=== PATIENT | female | born 1935 | race Caucasian/White ===

== ENCOUNTER 2016-08-07 12:52 | Emergency (ER) | payer OTHER, MEDICARE ==
[~2016-08-07] VITALS: Ht 152.4 cm; Wt 63.5 kg
[~2016-08-07 12:52] MED LIST: ASPIR 8181 MG PO; CALCIUM 600600 M1 PO; CILOSTAZOL100 MG PO; EXTENDED PHENY100 MG PO; FISH OIL1000 MG PO; FOLIC ACID 1 MG PO; JANUMET 1000 MG1 TAB PO; LEADER MELATONIN5 MG PO; LIPOFLAVONOID1 TAB PO; LOVASTATIN40 MG PO; MAGNESIUM500 M1 PO; MULTIVITAMIN1 TAB PO; NADOLOL40 MG PO; SERTRALINE HYDR50 MG PO; VITAB121000 PO; VITAMIN C500 M3 PO; VITAMIN D31000 I1 PO
--- NOTE | 2016-08-07 12:55 | ED GENERAL ADULT ---
History of Present Illness General Chief Complaint: Low Back Pain/Injury Stated Complaint: BACK PAIN Source: patient, family, old records Exam Limitations: language barrier Vital Signs & Intake/Output Vital Signs & Intake/Output Vital Signs Date Time Temp Pulse Resp B/P Pulse O2 O2 Flow FiO2 Ox Delivery Rate 08/07 1254 97.1 76 18 182/74 98 Room Air Allergies Coded Allergies: NO KNOWN ALLERGIES (11/05/14) Reconcile Medications Ascorbic Acid (Vitamin C) 500 MG TAB 1 TAB PO DAILY SUPPLEMENT (Reported) Aspirin (Ecotrin) 81 MG TABLET.DR 2 TAB PO DAILY HEART HEALTH (Reported) Calcium Carbonate (Calcium 600) 600 MG TAB 1,200 MG PO DAILY SUPPLEMENT ( Reported) CHOLECALCIFEROL (VITAMIN D3) (Vitamin D3) 1,000 UNIT CAPSULE 1 SGL PO DAILY SUPPLEMENT (Reported) Cilostazol 100 MG TAB 50 MG PO BID INTERMITTENT CLAUDICATION (Reported) Cyanocobalamin (Vitamin B-12) (Unknown Strength) TABLET (Unknown Dose) PO DAILY SUPPLEMENT (Reported) Folic Acid 1 MG TABLET 1 TAB PO DAILY FOLIC ACID SUPPLEMENT (Reported) Glimepiride 1 MG TABLET 1 TAB PO DAILY DIABETES (Reported) Lorazepam (Ativan) 0.5 MG TABLET 1 TAB PO BIDP PRN VERTIGO Losartan Potassium 25 MG TABLET 1 TAB PO DAILY HTN (Reported) Lovastatin 40 MG TABLET 1 TAB PO DAILY CHOLESTEROL (Reported) with food Magnesium Oxide 500 MG TABLET 1 TAB PO DAILY SUPPLEMENT (Reported) Meclizine HCl 25 MG TABLET 1 TAB PO TIDPRN PRN VERTIGO Melatonin 5 MG TABLET 1 TAB PO QPM SLEEP (Reported) Metformin Hydrochloride/Salima (Janumet 1000 MG-50 MG) 1 TAB TAB 1 TAB PO BID DIABETES (Reported) Multivitamin (Multiple Vitamins) 1 EACH TABLET 1 TAB PO DAILY SUPPLEMENT ( Reported) Hyygvphaftxt38 (Lipoflavonoid) 1 TAB TAB 1 TAB PO TID SUPPLEMENT (Reported) Nadolol 40 MG TAB 1 TAB PO DAILY HEART/BP (Reported) Naproxen 375 MG TABLET 1 TAB PO BID PRN BACK PAIN with food OMEGA-3/DHA/EPA/FISH OIL ([place]-3 Fish Oil 1,000 MG Sftg) 300 MG-1,000 MG CAPSULE 1 SGL PO DAILY SUPPLEMENT (Reported) PHENYTOIN SODIUM EXTENDED (Phenytoin Sodium Extended) 100 MG CAPSULE 1 CAP PO TID SEIZURES (Reported) Scopolamine Hydrobromide (Transderm-Scop) 1.5MG/3DAY PATCH.TD.3 1 PAT TOP Q3D VERTIGO apply to the hairless area behind 1 ear at least 4 hours before effect is required; reapply every 3 days as needed SERTRALINE HCL (Sertraline Hydrochloride) 50 MG TABLET 1 TAB PO DAILY MENTAL HEALTH (Reported) Triage Nurses Notes Reviewed? yes Onset: Gradual Duration: gone now, intermittent Timing: recent history Severity: moderate Severity Numbers: 5 HPI: Patient is a 80-year-old female with a past medical history of CAD, hypertension , hyperlipidemia, PVD, seizure disorder, diabetes, VERTIGO,depression who presents emergency room brought in by ambulance for concerns of left-sided back pain and flank pain. EMS states that there were called to patient's private residence however she did ambulate in the snow to the ambulance. Patient currently complains of pain and pointing to her left side of her abdomen and back however history is limited due to language barrier. Patient also is complaining of dizziness (MEENAKSHI CLARK) Past History Medical History Any Pertinent Medical History? see below for history Neurological: seizure, vertigo EENT: hearing loss Cardiovascular: CAD, diastolic CHF, hypertension, hyperlipidemia, myocardial infarction, PVD Respiratory: NONE Gastrointestinal: NONE Hepatic: NONE Renal: NONE Musculoskeletal: NONE Psychiatric: NONE Endocrine: NONE Blood Disorders: NONE Cancer(s): NONE SPORTSPERSONS/Reproductive: NONE History of MRSA: No History of VRE: No History of CDIFF: No Tetanus Vaccine: 07/28/15 Surgical History Surgical History: CABG, cholecystectomy, hip replacement Psychosocial History Who do you live with Son Services at Home None What is your primary language Hungarian Family History Hx Contributory? No (MEENAKSHI CLARK) Review of Systems Review of Systems Constitutional: Reports: no symptoms. EENTM: Reports: no symptoms. Respiratory: Reports: no symptoms. Cardiovascular: Reports: no symptoms. GI: Reports: see HPI. Genitourinary: Reports: no symptoms. Musculoskeletal: Reports: see HPI, back pain. Skin: Reports: no symptoms. Neurological/Psychological: Reports: no symptoms. Hematologic/Endocrine: Reports: no symptoms. Immunologic/Allergic: Reports: no symptoms. All Other Systems: Reviewed and Negative (MEENAKSHI CLARK) Physical Exam Physical Exam General Appearance: no apparent distress, alert, comfortable Comments: Well-developed well-nourished person in no acute distress HEENT: Normal EENT exam, extraocular motion intact, no nystagmus. Pupils equally round and reactive to light and accommodation. Nose is atraumatic. External auditory canal and Tympanic membranes clear. Pharynx normal. No swelling or edema. Neck: Supple, no lymphadenopathy, normal range of motion without pain or tenderness Back: Nontender, no CVA tenderness. Active range of motion of lumbar spine movements re-created left localized paralumbar muscular pain Cardiovascular: Regular rate and rhythms no murmurs rubs or gallops, normal JVP Respiratory: Chest nontender. No respiratory distress.breath sounds clear to auscultation bilaterally Abdomen: Soft, nontender nondistended, no appreciable organomegaly. Normal bowel sounds. No ascites Extremity: No edema, no calf tenderness to palpation, normal and equal pulses. Bilateral upper extremity myotomes and dermatomes intact full active range of motion Neuro: Alert oriented x3, motor sensory normal, cranial nerves II through XII grossly intact. Skin: No appreciable rash on exposed skin, skin is warm and dry. Psych: Mood and affect is normal, memory and judgment is normal. Core Measures ACS in differential dx? No CVA/TIA Diagnosis: No Severe Sepsis Present: No Septic Shock Present: No (CHEPE RATLIFF,MEENAKSHI) Progress Differential Diagnoses I considered the following diagnoses in my evaluation of the patient: [Kidney stone, fracture, transverse myelitis, diverticulitis, UTI, electrolyte abnormality, VERTIGO, cardiac arrhythmia, vertigo, lumbar strain, spinal abscess , SBO] Plan of Care: Orders Procedure Date/time Status URINALYSIS 08/07 1303 Complete TROPONIN LEVEL 08/07 1303 Complete COMPREHENSIVE METABOLIC PANEL 08/07 1303 Complete CBC WITHOUT DIFFERENTIAL 08/07 1303 Complete EKG 08/07 1303 Active Laboratory Tests 08/07/16 1350: Urine Color YEL, Urine Clarity CLEAR, Urine pH 7.5, Ur Specific [place] 1.020, Urine Protein 30 H, Urine Ketones NEG, Urine Nitrite NEG, Urine Bilirubin NEG, Urine Urobilinogen 0.2, Ur Leukocyte Esterase NEG, Ur Microscopic SEDIMENT EXAMINED, Urine RBC RARE, Ur Epithelial Cells RARE, Urine Hemoglobin NEG, Urine Glucose NEG 08/07/16 1322: Anion Gap 14, Estimated GFR > 60, BUN/Creatinine Ratio 22.5, Glucose 145 H, Calcium 9.9, Total Bilirubin 0.4, AST 27, ALT 46, Alkaline Phosphatase 104, Troponin I < 0.01, Total Protein 7.8, Albumin 4.5, Globulin 3.3, Albumin/ Globulin Ratio 1.4, CBC w Diff NO MAN DIFF REQ, RBC 4.18 L, MCV 93.5, MCH 31.5 H, RDW 14.3, MPV 8.4, Gran % 61.4, Lymphocytes % 29.1, Monocytes % 8.2, Eosinophils % 0.9, Basophils % 0.4, Absolute Granulocytes 2.7, Absolute Lymphocytes 1.3, Absolute Monocytes 0.4, Absolute Eosinophils 0, Absolute Basophils 0, PUBS MCHC 33.6 Patient on initial examination without family members had unremarkable physical exam findings and patient had nontender back no abdominal pain and no flank tenderness patient also noted to ambulate from the ambulance chair cart to the hospital bed with normal steady gait EMS also states that patient had normal steady gait from ambulation from private residence to the ambulance. Currently I'm awaiting to discuss patient's symptoms with family member The son who lives with the patient states that 3 days ago she was complaining of left-sided back pain in which he gave patient a lidocaine patch and states that the pain that the patient has been complaining of has come and gone and today the pain was significant that patient had an ambulance called to bring her in. The son also confirms that patient has a long history of room spinning sensation however he does not know medications for patients symptoms Patient and the son were discussed with him about the CT scan findings of the significant increase of dilation of the intrarenal collecting system however patient's symptoms are on the left side. When examining patient active range of motion of lumbar spine she had reproduction of pain localized to the left lumbar spine region which I suspect patient has lumbar strain. She denies any mechanism of injury. CT scan was unremarkable for osseous injury of lumbar spine. Patient was ambulated by me showing mild unsteady gait however the son states that this is always how she walks and she has a walker. Patient does have concerns of positional vertigo patient will be given Ativan and reevaluated After Ativan was administered patient then was ambulating on her own using a walker noted to have normal steady gait and patient had no complaints of dizziness room spinning sensation or back pain. Upon discharge patient looks well no apparent distress the son agrees with disposition and plan and had no questions. Patient was strongly advised to follow up with ENT. Discussed disposition plan with Dr. KAMARA who agrees i DISCUSSED DISPOSITION AND PLAN WITH THE DAUGHTER OVER THE PHONE AND WHICH SHE IS A NURSE WHO AGREES and has no questions. It was noted that patient has been following up with ENT Dr. Rosario and I strongly advised family members to follow- up with Dr. Rosario for known long-standing dizziness and vertigo symptoms. No concern at this time of kidney stone. The daughter states that patient is at her baseline per her history and ambulatory status (CHEPE RATLIFF,MEENAKSHI) Diagnostic Imaging: Viewed by Me: CT Scan. Radiology Impression: SEE COMMENTS Initial ED EKG: normal intervals, normal p-waves, SINUS RHYTHM NOTED AT 69 BPM Comments: PATIENT: ED SPARROW PRESENT AGE: 80 PATIENT ACCOUNT NO: [id number] : 34 LOCATION: [facility] ORDERING PHYSICIAN: MEENAKSHI RATLIFF SERVICE DATE: 08/07/16-4404 EXAM TYPE: CAT - CT ABD & PELVIS W/O IV CONTRAS EXAMINATION: CT ABDOMEN AND PELVIS WITHOUT CONTRAST CLINICAL INFORMATION: Left flank pain. Left-sided back pain. Evaluate lumbar spine. Assess for urinary calculus COMPARISON: Portions of a previous CT 11/05/14 TECHNIQUE: Multidetector volumetric imaging was performed from the superior aspect of the liver through the pubic symphysis. Sagittal and coronal reformatted images were obtained on the technologist's workstation. DLP: 285 mGy-cm FINDINGS: LUNG BASES: There are chronic appearing reticular opacities in the visualized lung bases. There is coronary calcification. There are lower sternal wires. LIVER, GALLBLADDER, AND BILIARY TREE: No suspicious focal liver lesion. No intrahepatic biliary dilation the gallbladder is not demonstrated and is likely surgically absent. PANCREAS: No suspicious pancreatic mass. SPLEEN: Within normal limits ADRENAL GLANDS: There is unchanged diffuse enlargement of the adrenals perhaps related to hyperplasia. No suspicious mass KIDNEYS AND URETERS: There is moderate to marked dilation of the renal pelvis and major infundibula as well as at least mild dilation of the calyces on the right. There is an abrupt change in caliber at the ureteropelvic junction. The right ureter is not dilated. There is no convincing mass at the ureteropelvic junction. There is no obstructing calculus. There is mild fullness of the renal pelvis and infundibula on the left with no ureteral dilation. The left kidney is somewhat smaller than the right. There is no definite perinephric collection. The distal ureters are unevaluable due to metallic artifact BLADDER: Obscured by metallic artifact and not well evaluated GASTROINTESTINAL TRACT: No localized area of colonic wall thickening. No small bowel dilation. There is likely a diverticulum involving the second portion of the duodenum. There may be a tiny sliding-type hiatal hernia. ABDOMINAL WALL: No significant hernia is appreciated. LYMPH NODES: There are no measurably enlarged abdominal or pelvic lymph nodes. No significant free intraperitoneal fluid VASCULAR: Extensive atherosclerotic calcification. There is no abdominal aortic aneurysm. PELVIC VISCERA: Metallic artifact limits assessment. The uterus may be surgically absent. OSSEOUS STRUCTURES: Bilateral hip replacement causes significant artifact. There is degenerative change in the spine. There is no definite lumbar fracture. IMPRESSION: There is again demonstrated significant dilation of the intrarenal collecting system greater on the right. There is an abrupt change in caliber at the ureteropelvic junction. This could be developmental. No mass or calculus in this region demonstrated. Beam hardening artifact limits assessment of the pelvis No lumbar fracture demonstrated DICTATED BY: MIAN HERNANDEZ MD DATE/TIME DICTATED:08/07/161352 WEBLOGIC ADMINISTRATOR:ALEX DATE/TIME TRANSCRIBED:08/07/161352 (MEENAKSHI CLARK) Departure Departure Disposition: HOME OR SELF CARE Condition: Stable Clinical Impression Primary Impression: Low back strain Secondary Impressions: Positional vertigo Referrals: DAVID GUNTER MD (PCP/Family) Additional Instructions: As discussed begin the prescription of Naprosyn as directed for back pain. If no better in one week follow up with primary care doctor for further evaluation treatment. Begin icing or heating the area 20 minutes every 2 hours for pain and inflammation. Continue to always use the walker for fall prevention. Begin the prescription of meclizine and scopolamine for room spinning sensation and begin the prescription of Ativan for breakthrough room spinning and vertigo symptoms. Tomorrow please follow up and establish your nose and throat doctor GEORGE for further evaluation. If symptoms worsen return to emergency room. Departure Forms: Customer Survey General Discharge Information Prescriptions: Current Visit Scripts Scopolamine Hydrobromide (Transderm-Scop) 1 PAT TOP Q3D #4 PAT apply to the hairless area behind 1 ear at least 4 hours before effect is required; reapply every 3 days as needed Meclizine HCl 1 TAB PO TIDPRN PRN VERTIGO #30 TAB Lorazepam (Ativan) 1 TAB PO BIDP PRN VERTIGO #8 TAB Naproxen 1 TAB PO BID PRN BACK PAIN #14 TAB with food (MEENAKSHI CLARK) PA/CYBER SOFTWARE ENGINEER Co-Sign Statement Statement: ED Attending supervision documentation- x I saw and evaluated the patient. I have also reviewed all the pertinent lab results and diagnostic results. I agree with the findings and the plan of care as documented in the PA's/CYBER SOFTWARE ENGINEER's documentation. [] I have reviewed the ED Record and agree with the PA's/CYBER SOFTWARE ENGINEER's documentation. [] Additions or exceptions (if any) to the PAs/CYBER SOFTWARE ENGINEER's note and plan are summarized below: [] (ANH VIDAL,GISELA) Critical Care Note Critical Care Note Critical Care Time: non-applicable (MEENAKSHI CLARK)
[2016-08-07 13:33] LABS: ABSOLUTE BASOPHIL COUNT 0 /CUMM (0.0-0.2); ABSOLUTE EOSINOPHIL COUNT 0 /CUMM (0.0-0.7); ABSOLUTE GRANULOCYTE CT 2.7 /CUMM (1.4-6.5); ABSOLUTE LYMPH COUNT 1.3 /CUMM (1.2-3.4); ABSOLUTE MONOCYTE COUNT 0.4 /CUMM (0.10-0.60); BASOPHIL % 0.4 % (0.0-2.0); EOSINOPHIL % 0.9 % (0-5); GRANULOCYTE % 61.4 % (42.2-75.2); HEMATOCRIT 39.1 % (37-47); MEAN CORPUSCULAR HGB 31.5 PG (27.0-31.0); MEAN CORPUSCULAR HGB CONC 33.6 G/DL (33.0-37.0); MEAN CORPUSCULAR VOLUME 93.5 FL (81.0-99.0); MEAN PLATELET VOLUME 8.4 FL (7.4-10.4); PLATELET COUNT 153 /CUMM (130-400); RBC DISTRIBUTION WIDTH 14.3 % (11.5-14.5); RED BLOOD CELL CT 4.18 /CUMM (4.20-5.40); WHITE BLOOD CELL COUNT 4.3 /CUMM (4.8-10.8)
[2016-08-07] MEDS ORDERED: GLIMEPIRIDE1 M1 PO (13:38)
[2016-08-07] MEDS ORDERED: LOSARTAN POTASS25 M1 PO (13:39)
--- NOTE | 2016-08-07 14:12 | CT SCAN REPORT ---
EXAMINATION: CT ABDOMEN AND PELVIS WITHOUT CONTRAST CLINICAL INFORMATION: Left flank pain. Left-sided back pain. Evaluate lumbar spine. Assess for urinary calculus COMPARISON: Portions of a previous CT 11/05/14 TECHNIQUE: Multidetector volumetric imaging was performed from the superior aspect of the liver through the pubic symphysis. Sagittal and coronal reformatted images were obtained on the technologist's workstation. DLP: 285 mGy-cm FINDINGS: LUNG BASES: There are chronic appearing reticular opacities in the visualized lung bases. There is coronary calcification. There are lower sternal wires. LIVER, GALLBLADDER, AND BILIARY TREE: No suspicious focal liver lesion. No intrahepatic biliary dilation the gallbladder is not demonstrated and is likely surgically absent. PANCREAS: No suspicious pancreatic mass. SPLEEN: Within normal limits ADRENAL GLANDS: There is unchanged diffuse enlargement of the adrenals perhaps related to hyperplasia. No suspicious mass KIDNEYS AND URETERS: There is moderate to marked dilation of the renal pelvis and major infundibula as well as at least mild dilation of the calyces on the right. There is an abrupt change in caliber at the ureteropelvic junction. The right ureter is not dilated. There is no convincing mass at the ureteropelvic junction. There is no obstructing calculus. There is mild fullness of the renal pelvis and infundibula on the left with no ureteral dilation. The left kidney is somewhat smaller than the right. There is no definite perinephric collection. The distal ureters are unevaluable due to metallic artifact BLADDER: Obscured by metallic artifact and not well evaluated GASTROINTESTINAL TRACT: No localized area of colonic wall thickening. No small bowel dilation. There is likely a diverticulum involving the second portion of the duodenum. There may be a tiny sliding-type hiatal hernia. ABDOMINAL WALL: No significant hernia is appreciated. LYMPH NODES: There are no measurably enlarged abdominal or pelvic lymph nodes. No significant free intraperitoneal fluid VASCULAR: Extensive atherosclerotic calcification. There is no abdominal aortic aneurysm. PELVIC VISCERA: Metallic artifact limits assessment. The uterus may be surgically absent. OSSEOUS STRUCTURES: Bilateral hip replacement causes significant artifact. There is degenerative change in the spine. There is no definite lumbar fracture. IMPRESSION: There is again demonstrated significant dilation of the intrarenal collecting system greater on the right. There is an abrupt change in caliber at the ureteropelvic junction. This could be developmental. No mass or calculus in this region demonstrated. Beam hardening artifact limits assessment of the pelvis No lumbar fracture demonstrated
[2016-08-07] MEDS ORDERED: ATIVAN0.5 M1 PO (15:15)
[2016-08-07] MEDS ORDERED: TRANSDERM-SCOP1 EACH TOP (15:15)
[2016-08-07] MEDS ORDERED: MECLIZINE HCL25 MG PO (15:15)
[2016-08-07] MEDS ORDERED: NAPROXEN375 M2 PO (15:17)
[2016-08-07 15:48] VITALS: BP 167/74
== END 2016-08-07 15:49 ==
LOC: ERH 12:52
PROVIDERS: Physician Assistant
DX: S39.012A Strain of muscle, fascia and tendon of lower back, initial encounter (principal); H81.10 Benign paroxysmal vertigo, unspecified ear; X58.XXXA Exposure to other specified factors, initial encounter
CPT/HCPCS: 74176; 81001; 93005; 93010

== ENCOUNTER 2017-08-18 17:48 | Inpatient (IN) | payer OTHER ==
[~2017-08-18] VITALS: Ht 152.4 cm; Wt 48.1 kg
[~2017-08-18 17:48] MED LIST changes: -ASPIR 8181 MG PO; +ASPIRIN EC81 M1 PO; +ATIVAN0.5 M1 PO; -CALCIUM 600600 M1 PO; +CALCIUM600 M3 PO; +CILOSTAZOL100 M1 PO; -CILOSTAZOL100 MG PO; -EXTENDED PHENY100 MG PO; -FISH OIL1000 MG PO; -FOLIC ACID 1 MG PO; +FOLIC ACID1 M1 PO; +GLIMEPIRIDE1 M1 PO; -JANUMET 1000 MG1 TAB PO; +JANUMET 50-1,01 EACH PO; -LEADER MELATONIN5 MG PO; +LIPO-FLAVONOID1 EACH PO; -LIPOFLAVONOID1 TAB PO; +LOSARTAN POTASS25 M1 PO; +LOVASTATIN40 M1 PO; -LOVASTATIN40 MG PO; -MAGNESIUM500 M1 PO; +MAGNESIUM500 M2 PO; +MECLIZINE HCL25 MG PO; +MELATONIN5 M7 PO; +MULTIPLE VITAM1 EAC2 PO; -MULTIVITAMIN1 TAB PO; +NADOLOL40 M1 PO; -NADOLOL40 MG PO; +NAPROXEN375 M2 PO; +OMEGA-3 FISH O1 EAC4 PO; +PHENYTOIN SODI100 MG PO; +RISPERDAL1 M1 PO; +SERTRALINE HCL50 MG PO; -SERTRALINE HYDR50 MG PO; +TRANSDERM-SCOP1 EACH TOP; -VITAB121000 PO; +VITAMIN B-121000 MC3 PO; -VITAMIN C500 M3 PO; +VITAMIN C500 M6 PO; -VITAMIN D31000 I1 PO; +VITAMIN D31000 UNI1 PO
--- NOTE | 2017-08-18 18:27 | ED GENERAL ADULT ---
History of Present Illness General Chief Complaint: General Adult Stated Complaint: BIBA WEAKNESS Source: patient, family Exam Limitations: no limitations Vital Signs & Intake/Output Vital Signs & Intake/Output Vital Signs Date Time Temp Pulse Resp B/P B/P Pulse O2 O2 Flow FiO2 Mean Ox Delivery Rate 08/18 1944 97.2 80 20 116/68 97 Room Air 08/18 1848 95 Room Air 08/18 1801 98.6 82 18 108/53 96 Room Air Allergies Coded Allergies: NO KNOWN ALLERGIES (11/05/14) Reconcile Medications Ascorbate Calcium (Vitamin C) 500 MG TABLET 1 TAB PO DAILY SUPPLEMENT ( Reported) Aspirin (Ecotrin*) 81 MG TABLET.DR 2 TAB PO DAILY HEART/BLOOD (Reported) Bioflav,Lemon/Vit Bcomp,C (Lipo-Flavonoid Plus Caplet) 200 MG-100 MG TABLET 1 TAB PO TID SUPPLEMENT (Reported) Calcium (Elemental-Fr Calcarb) (Calcium) 600 MG CALCIUM (1,500 MG) TABLET 1, 200 MG PO DAILY SUPPLEMENT (Reported) Cholecalciferol (Vitamin D3) (Vitamin D3) 1,000 UNIT CAPSULE 1 CAP PO DAILY SUPPLEMENT (Reported) Cilostazol 100 MG TABLET 0.5 TAB PO BID INTERMITTENT CLAUDICATION (Reported) Cyanocobalamin (Vitamin B-12) (Unknown Strength) TABLET (Unknown Dose) PO DAILY SUPPLEMENT (Reported) Folic Acid 1 MG TABLET 1 TAB PO DAILY SUPPLEMENT (Reported) Glimepiride 1 MG TABLET 1 TAB PO DAILY DIABETES (Reported) Losartan Potassium 25 MG TABLET 1 TAB PO DAILY HTN (Reported) Lovastatin 40 MG TABLET 1 TAB PO DAILY CHOLESTEROL (Reported) with food Magnesium Oxide (Magnesium) 500 MG CAPSULE 1 CAP PO DAILY SUPPLEMENT ( Reported) Melatonin 5 MG TABLET 1 TAB PO QPM SLEEP (Reported) Multivitamin (Multiple Vitamins) 1 EACH TABLET 1 TAB PO DAILY SUPPLEMENT ( Reported) Nadolol 40 MG TABLET 1 TAB PO DAILY HEART/BP (Reported) Dewitt-3S/Dha/Epa/Fish Oil (Dewitt-3 Fish Oil 1,000 MG Sfgl) 300-1,000MG CAPSULE 1 CAP PO DAILY SUPPLEMENT (Reported) Phenytoin Sodium Extended 100 MG CAPSULE 1 CAP PO TID SEIZURES (Reported) Risperidone (Risperdal) 1 MG TABLET 0.5 MG PO BID AGITATION Sertraline HCl 50 MG TABLET 1 TAB PO DAILY MENTAL HEALTH (Reported) Sitagliptin Phos/Metformin HCl (Janumet 50-1,000 MG Tablet) 50 MG-1,000 MG TABLET 1 TAB PO BID DM (Reported) Triage Note: RECEIVED 82 YO FEMALE BIBJohn FROM HOME, ROMANSH SPEAKING, WITH GRAND-DAUGHTER WHO SPEAKS ROMANSH AND IS ABLE TO TRANSLATE FOR PT, REPORTS WEAKNESS AD LETHARGY X 3 DAYS. ACORDING TO REPORT, FAMILY SAID SHE WAS CRITICALLY HYPOGLYCEIC EARLIER, BUT CURRENTLY, HER BLOOD SUGAR WAS 231 UPON ARRIVAL OF PARAMEDICS. PT APPEARS AWAKE, ALERT AND ORIENTED Triage Nurses Notes Reviewed? yes HPI: 82 yo F presenting with cough, weakness. Cough for the last 2-3 days, noticed by family, progressive. Marked weakness starting today, patient appeared fatigued and lethargic for much of the day, sleeping most of the afternoon, patient not able to ambulate at baseline at home, needed to be supported by multiple family members. Family also notes the patient had episode of "low" blood sugar reading this afternoon, takes Januvia, able to eat with improvement. Patient denies fevers, rash, chest pain, shortness of breath, palpitations, abdominal pain, nausea, vomiting, diarrhea, patient, bloody stools, urinary symptoms, headache, neck pain, or focal neurologic symptoms. No recent falls or head trauma. (+) sick contacts, nephew had URI Sx 1-2 weeks ago. (Caity VIADL,Wyatt) Past History Travel History Traveled to [place] past 21 day No Medical History Any Pertinent Medical History? 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 Yes (Wyatt Carolina MD) Review of Systems Review of Systems Constitutional: Reports: see HPI. EENTM: Reports: see HPI. Respiratory: Reports: see HPI. Cardiovascular: Reports: see HPI. GI: Reports: see HPI. Genitourinary: Reports: no symptoms. Musculoskeletal: Reports: no symptoms. Skin: Reports: no symptoms. Neurological/Psychological: Reports: no symptoms. Hematologic/Endocrine: Reports: no symptoms. Immunologic/Allergic: Reports: no symptoms. All Other Systems: Reviewed and Negative (Caity VIDAL,Wyatt) Physical Exam Physical Exam General Appearance: well developed/nourished, no apparent distress, awake Head: atraumatic, normal appearance Eyes: Bilateral: PERRL, EOMI. Ears, Nose, Throat: Dry mucus membranes Neck: normal inspection, full range of motion, no midline tenderness Respiratory: normal breath sounds, no respiratory distress, lungs clear Cardiovascular: regular rate/rhythm, normal peripheral pulses Gastrointestinal: soft, non-tender Core Measures ACS in differential dx? No CVA/TIA Diagnosis: No Sepsis Present: No Sepsis Focused Exam Completed? Yes (Caity VIDAL,Wyatt) Progress Differential Diagnoses I considered the following diagnoses in my evaluation of the patient: [Probably URI, influenza, pneumonia, UTI, sepsis from other infectious source, metabolic arrangement, less likely intercranial hemorrhage,] Plan of Care: Orders Procedure Date/time Status Regular Diet 08/19 B Active CBC WITHOUT DIFFERENTIAL 08/19 06 Active BASIC ELECTROLYTES PLUS BUN&CR 08/19 0600 Active LACTIC ACID 08/19 0033 Active TRC EVALUATION (GEN) 08/18 2258 Active PT Evaluate & Treat 08/18 2258 Active Pathway - chart 08/18 225 Active House Staff 08/18 225 Active Patient Data 08/18 225 Active Code Status 08/18 225 Active ED Holding Orders 08/18 2224 Active Patient Data 08/19 2155 Active Admit to inpatient 08/18 2152 Active LACTIC ACID 08/18 2133 Complete RAPID VIRAL INFLUENZA A 08/18 1945 Complete Intake & Output 08/18 1944 Active URINALYSIS 08/18 182 Complete TROPONIN LEVEL 08/18 182 Complete LACTIC ACID 08/18 182 Complete HEPATIC FUNCTION PANEL 08/18 182 Complete CBC WITHOUT DIFFERENTIAL 08/18 182 Complete BASIC METABOLIC PANEL 08/18 182 Complete EKG 08/18 1822 Active VTE Mechanical Prophylaxis 08/18 UNK Active Vital Signs 08/18 UNK Active 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/Gravel Machine Operator 08/18 UNK Active Intake & Output 08/18 UNK Active Current Medications Sig/Ellen Start time Last Medication Dose Stop Time Status Admin Enoxaparin Sodium 40 MG DAILY 08/19 1000 AC (Lovenox) Acetaminophen 650 MG Q6P PRN 08/18 230 AC (Tylenol) Oseltamivir Phosphate 75 MG BID 08/18 2199 CAN (Tamiflu 75MG) 08/22 2158 Oseltamivir Phosphate 30 MG BID 08/18 2199 AC 08/18 (Tamiflu) 08/22 Laboratory Tests 08/18/17 2140: Lactic Acid 2.9 H 08/18/17 1930: Urine Color YEL, Urine Clarity HAZY H, Urine pH 6.0, Ur Specific [place] 1.025, Urine Protein TRACE H, Urine Ketones 15 H, Urine Nitrite NEG, Urine Bilirubin NEG, Urine Urobilinogen 0.2, Ur Leukocyte Esterase SMALL H, Ur Microscopic SEDIMENT EXAMINED, Urine RBC RARE, Urine WBC 15-25 H, Ur Epithelial Cells FEW, Urine Bacteria PACKD H, Urine Hemoglobin NEG, Urine Glucose NEG 08/18/17 1831: Anion Gap 15, Estimated GFR 53 L, BUN/Creatinine Ratio 31.0 H, Glucose 169 H, Lactic Acid 4.2 H, Calcium 9.3, Total Bilirubin 0.4, Direct Bilirubin 0.4, AST 37 H, ALT 44, Alkaline Phosphatase 64, Troponin I < 0.01, Total Protein 6.8, Albumin 3.8, CBC w Diff NO MAN DIFF REQ, RBC 3.61 L, MCV 94.3, MCH 31.1 H, MCHC 33.0, RDW 14.8 H, MPV 9.1, Gran % 57.6, Lymphocytes % 29.9, Monocytes % 10.2 H, Eosinophils % 1.7, Basophils % 0.6, Absolute Granulocytes 1.8, Absolute Lymphocytes 0.9 L, Absolute Monocytes 0.3, Absolute Eosinophils 0.1, Absolute Basophils 0 Microbiology 08/18 1944 NASOPHARYN: Influenza Virus A & B Rapid Smear - COMP INFLUENZA TYPE A Physician MDM: 82 yo F presenting with cough, weakness. VSS, remainder of exam as above. DDx: Viral URI, influenza, pneumonia, UTI, sepsis from another source, metabolic derrangement, dehydration, low concern for trauamtic injury or intracranial hemorrhage, low concern for surgical abdominal pathology, low concern for ACS or PE. EKG sinus rhythm, nonischemic. Troponin negative. Lactate 4.2, 1 L normal saline given. UA with 15-20 white blood cells, mildly contaminated with few epithelial cells, packed bacteria, the site esterase positive, nitrite negative, will treat with ceftriaxone for UTI. CBC with stable anemia around baseline, leukopenia to 3.1. Repeat lactic acid 2.9, improving with IV fluids. Chest x-ray without focal without issue airspace disease. Influenza A positive. Tamiflu ordered. On reexamination patient appears fatigued, unable to relate at baseline. Admit for ongoing IV fluid resuscitation, treatment of influenza, further evaluation, PT consult, possible facility placement. Initial ED EKG: normal sinus rhythm (Wyatt Carolina MD) Departure Departure Disposition: STILL A PATIENT Condition: Stable Clinical Impression Primary Impression: Influenza A Referrals: Norma Plascencia MD (PCP/Family) Departure Forms: Customer Survey General Discharge Information Admission Note Spoke With: Markus Martin MD Documentation of Exam: Documentation of any treatments & extenuating circumstances including Concerns Regarding Discharge (functional status, medication knowledge or non-compliance, living conditions, etc.) that warrant an admission rather than observation: [ Patient presents with lethargy, dehydration, and cough in the setting of new diagnosis of influenza, in the emergency department found to be safely dehydrated with elevated lactate, the patient requires admission for ongoing IV fluid resuscitation, further treatment of influenza, monitoring, PT consult, possible facility placement, if discharged patient has a high likelihood of recurrent hyperglycemic episodes, falls, leading to severe injury and possibly ] (Wyatt Carolina MD) Resident Co-Sign Statement Statement: ED Attending supervision documentation- [X] I saw and evaluated the patient. I have also reviewed all the pertinent lab results and diagnostic results. I agree with the findings and the plan of care as documented in the Resident's documentation. [X] I have reviewed the ED Record and agree with the Resident's documentation. [] Additions or exceptions (if any) to the Resident's note and plan are summarized below: [] (Efren VIDAL,Demetrius Padron) Critical Care Note Critical Care Note Critical Care Time: non-applicable (Wyatt Carolina MD)
[2017-08-18 19:00] LABS: ABSOLUTE BASOPHIL COUNT 0 /CUMM (0.0-0.2); ABSOLUTE EOSINOPHIL COUNT 0.1 /CUMM (0.0-0.7); ABSOLUTE GRANULOCYTE CT 1.8 /CUMM (1.4-6.5); ABSOLUTE LYMPH COUNT 0.9 /CUMM (1.2-3.4); ABSOLUTE MONOCYTE COUNT 0.3 /CUMM (0.10-0.60); BASOPHIL % 0.6 % (0.0-2.0); EOSINOPHIL % 1.7 % (0-5); GRANULOCYTE % 57.6 % (42.2-75.2); HEMATOCRIT 34.1 % (37-47); MEAN CORPUSCULAR HGB 31.1 PG (27.0-31.0); MEAN CORPUSCULAR VOLUME 94.3 FL (81.0-99.0); MEAN PLATELET VOLUME 9.1 FL (7.4-10.4); PLATELET COUNT 110 /CUMM (130-400); RBC DISTRIBUTION WIDTH 14.8 % (11.5-14.5); RED BLOOD CELL CT 3.61 /CUMM (4.20-5.40); WHITE BLOOD CELL COUNT 3.1 /CUMM (4.8-10.8)
--- NOTE | 2017-08-18 20:58 | RADIOLOGY REPORT ---
EXAMINATION: XR CHEST CLINICAL INFORMATION: Cough. COMPARISON: History of 12/22/2016. TECHNIQUE: 2 views of the chest were obtained. FINDINGS: The heart is enlarged and there is mild prominence of pulmonary vasculature. No pleural effusion. No focal airspace consolidation. Postoperative changes of prior median sternotomy. Degenerative changes of both shoulders and the partially visualized spine. No acute osseous finding. IMPRESSION: Mild cardiomegaly and mild prominence of the pulmonary vasculature suggesting mild volume overload.
[2017-08-18] MEDS ORDERED: GABAPENTIN100 M2 PO (23:10)
--- NOTE | 2017-08-19 00:36 | History & Physical ---
Prakash VIDAL,[facility] 08/19/17 0035: General Information and HPI MD Statement: I have seen and personally examined ED SPARROW and documented this H&P. The patient is a 82 year old F who presented with a patient stated chief complaint of [lethargy]. Source of Information: family Exam Limitations: language barrier History of Present Illness: Ms Anamika is an 82 year-old lady with past medical history significant for seizure disorder on Dilantin, CABG after positive stress test and angina in 1997 and NH in 2003 status post stent placement , hypertension, hyperlipidemia, reflux disease, chronic subdural hematoma, diabetes, and urinary incontinence who is brought in to the ER by her daughter for increasing lethargy for the past 2-3 days. Per the daughter, her mother has been increasingly lethargic for the past couple of days. She had a cough starting 3 days ago which is gradually getting worse and has some chest discomfort due to coughing. Reports patient's son being recently sick with cold. Denies any chest pain, palpitations, shortness of breath, recent travel, fever/chills, orthopnea, PND, lower extremity edema or recent weight gain. Patient did not receive her flu shot this year. She had her birthday green party yesterday but according to the daughter she did not look good. She checked her blood sugar levels around afternoon with a glucometer reading it as "low", she gave her some sugar to be in the repeat reading was 180s. States she took her glimiperide but did not eat anything. Allergies/Medications Allergies: Coded Allergies: NO KNOWN ALLERGIES (11/05/14) Home Med list Ascorbate Calcium (Vitamin C) 500 MG TABLET 1 TAB PO DAILY SUPPLEMENT ( Reported) Aspirin (Ecotrin*) 81 MG TABLET.DR 2 TAB PO DAILY HEART/BLOOD (Reported) Bioflav,Lemon/Vit Bcomp,C (Lipo-Flavonoid Plus Caplet) 200 MG-100 MG TABLET 1 TAB PO TID SUPPLEMENT (Reported) Calcium (Elemental-Fr Calcarb) (Calcium) 600 MG CALCIUM (1,500 MG) TABLET 1, 200 MG PO DAILY SUPPLEMENT (Reported) Cholecalciferol (Vitamin D3) (Vitamin D3) 1,000 UNIT CAPSULE 1 CAP PO DAILY SUPPLEMENT (Reported) Cilostazol 100 MG TABLET 0.5 TAB PO BID INTERMITTENT CLAUDICATION (Reported) Cyanocobalamin (Vitamin B-12) (Unknown Strength) TABLET (Unknown Dose) PO DAILY SUPPLEMENT (Reported) Folic Acid 1 MG TABLET 1 TAB PO DAILY SUPPLEMENT (Reported) Gabapentin 100 MG CAPSULE 1 CAP PO AT BEDTIME SLEEP (Reported) Glimepiride 1 MG TABLET 1 TAB PO DAILY DIABETES (Reported) Losartan Potassium 25 MG TABLET 1 TAB PO DAILY HTN (Reported) Lovastatin 40 MG TABLET 1 TAB PO DAILY CHOLESTEROL (Reported) with food Magnesium Oxide (Magnesium) 500 MG CAPSULE 1 CAP PO DAILY SUPPLEMENT ( Reported) Melatonin 5 MG TABLET 1 TAB PO QPM SLEEP (Reported) Multivitamin (Multiple Vitamins) 1 EACH TABLET 1 TAB PO DAILY SUPPLEMENT ( Reported) Nadolol 40 MG TABLET 1 TAB PO DAILY HEART/BP (Reported) Baskin-3S/Dha/Epa/Fish Oil (Baskin-3 Fish Oil 1,000 MG Sfgl) 300-1,000MG CAPSULE 1 CAP PO DAILY SUPPLEMENT (Reported) Phenytoin Sodium Extended 100 MG CAPSULE 1 CAP PO TID SEIZURES (Reported) Risperidone (Risperdal) 1 MG TABLET 0.5 MG PO BID AGITATION Sertraline HCl 50 MG TABLET 1 TAB PO DAILY MENTAL HEALTH (Reported) Sitagliptin Phos/Metformin HCl (Janumet 50-1,000 MG Tablet) 50 MG-1,000 MG TABLET 1 TAB PO BID DM (Reported) Past History Travel History Traveled to [place] past 21 day No Medical History Neurological: seizure, vertigo, Chronic Subdural Hematoma EENT: hearing loss Cardiovascular: CAD, diastolic CHF, hypertension, hyperlipidemia, myocardial infarction, PVD Respiratory: NONE Gastrointestinal: NONE Hepatic: NONE Renal: urinary incontinence Musculoskeletal: NONE Psychiatric: NONE Endocrine: diabetes Blood Disorders: NONE Cancer(s): NONE 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 Home Who Do You Live With? child Services at Home: None Primary Language: Burundian Smoking Status: Never Smoked ETOH Use: denies use Illicit Drug Use: denies illicit drug use Functional Ability ADLs Independent: dressing, eating, toileting, bathing. Ambulation: walker IADLs Independent: food prep, telephone. Needs Assist: shopping, housework, finances, transportation, medication admin. Review of Systems Review of Systems Constitutional: Reports: malaise. EENTM: Reports: no symptoms. Cardiovascular: Reports: no symptoms. Respiratory: Reports: cough. GI: Reports: no symptoms. Genitourinary: Reports: no symptoms. Musculoskeletal: Reports: no symptoms. Skin: Reports: no symptoms. Neurological/Psychological: Reports: no symptoms. Hematologic/Endocrine: Reports: no symptoms. Immunologic/Allergic: Reports: no symptoms. All Other Systems: Reviewed and Negative Exam & Diagnostic Data Last 24 Hrs of Vital Signs/I&O Vital Signs Date Time Temp Pulse Resp B/P B/P Pulse O2 O2 Flow FiO2 Mean Ox Delivery Rate 08/19 0120 99.3 08/18 2354 99.3 95 21 162/75 93 Nasal 3.0L Cannula 08/18 1945 97.2 80 20 116/68 97 Room Air 08/18 1848 95 Room Air 08/18 1801 98.6 82 18 108/53 96 Room Air Intake & Output 08/19 0800 08/19 0000 08/18 1600 Intake Total 1000 Output Total Balance 1000 Intake, IV 1000 Patient 120 lb Weight Weight Estimated Measurement Method Physical Exam General Appearance Alert, Cooperative, No Acute Distress Skin No Rashes, No Breakdown Cardiovascular Regular Rate, Normal S1, Normal S2, Crackles on bilateral lung bases Lungs Normal Air Movement Abdomen Normal Bowel Sounds, Soft, No Tenderness Extremities No Clubbing, No Cyanosis, No Edema, Normal Pulses Last 24 Hrs of Labs/Tobias: Laboratory Tests 08/19/17 0013: Troponin I 0.01 08/19/17 0013: Lactic Acid 1.9, Phenytoin 10.3 08/18/170: Lactic Acid 2.9 H 08/18/17 1930: Urine Color YEL, Urine Clarity HAZY H, Urine pH 6.0, Ur Specific [place] 1.025, Urine Protein TRACE H, Urine Ketones 15 H, Urine Nitrite NEG, Urine Bilirubin NEG, Urine Urobilinogen 0.2, Ur Leukocyte Esterase SMALL H, Ur Microscopic SEDIMENT EXAMINED, Urine RBC RARE, Urine WBC 15-25 H, Ur Epithelial Cells FEW, Urine Bacteria PACKD H, Urine Hemoglobin NEG, Urine Glucose NEG 08/18/17 183: Anion Gap 15, Estimated GFR 53 L, BUN/Creatinine Ratio 31.0 H, Glucose 169 H, Lactic Acid 4.2 H, Calcium 9.3, Total Bilirubin 0.4, Direct Bilirubin 0.4, AST 37 H, ALT 44, Alkaline Phosphatase 64, Troponin I < 0.01, Urr-K-Hheuasibnya Pept 3590 H, Total Protein 6.8, Albumin 3.8, CBC w Diff NO MAN DIFF REQ, RBC 3.61 L, MCV 94.3, MCH 31.1 H, MCHC 33.0, RDW 14.8 H, MPV 9.1, Gran % 57.6, Lymphocytes % 29.9, Monocytes % 10.2 H, Eosinophils % 1.7, Basophils % 0.6, Absolute Granulocytes 1.8, Absolute Lymphocytes 0.9 L, Absolute Monocytes 0.3, Absolute Eosinophils 0.1, Absolute Basophils 0 Microbiology 08/18 1944 NASOPHARYN: Influenza Virus A & B Rapid Smear - COMP INFLUENZA TYPE A 08/18 1929 URINE ROUT: Urine Culture - RECD Diagnostic Data EKG Results Normal sinus rhythm Heart rate 79 QTC 436 CXR Results Mild cardiomegaly and mild prominence of pulmonary vasculature suggesting mild volume overload. Assessment/Plan Assessment: Ms Sparrow is an 82 year-old lady with past medical history significant for seizure disorder on Dilantin, CABG after positive stress test and angina in 1997 and NH in 2003 status post stent placement , hypertension, hyperlipidemia, reflux disease, chronic subdural hematoma, diabetes, and urinary incontinence who is brought in to the ER by her daughter for increasing lethargy for the past 2-3 days. Problem list 1. Influenza 2. Lactic acidosis; likely dehydration as the patient had very little by mouth intake per the daughter. 3. Exacerbation of diastolic congestive heart feature; patient is not on any home Lasix. - We will admit the patient to telemetry floor. - Start the patient on Tamiflu 30 mg twice a day. - Patient was later hypoxic in the ER requiring 3 L of oxygen. Continue supplemental oxygen as needed. - Robitussuin for cough - Patient received 1.5 L of fluids in the ER for elevated lactic acid, will hold off on the fluids for now given mild fluid overload on chest x-ray, elevated JVD and proBNP of 3590. - Lactic acidosis resolved after hydration. - Troponin EKG 3 to rule out ACS - Cardiology consult in a.m. - Echocardiogram in January 10 showed normal ejection fraction which stage II diastolic dysfunction. Will hold off repeating the echocardiogram for now unless suggested by cardiology. - Patient is on Cilostazol, contraindicated in patients with heart failure, should be discontinued. - Monitor Ins and outs and daily weights - PT OT evaluation - Hold oral hypoglycemic agents and start on insulin sliding scale and Accu- Cheks. - Continue rest of the home medications. DVT prophylaxis; As Ranked By This Provider Problem List: 1. Seizure disorder 2. Influenza A Core Measures/Misc (02/10) Acute Coronary Syndrome ACS Diagnosis: No Congestive Heart Failure Congestive Heart Failure Diagnosis Yes Cerebrovascular Accident CVA/TIA Diagnosis: No VTE (View Protocol) VTE Risk Factors Age>40 No Mechanical VTE Prophylaxis d/t N/A MechProphylax Ordered No VTE Pharm Prophylaxis d/t NA PharmProphylax ordered Sepsis (View protocol) Sepsis Present: No BrandieazizaGerardo 08/19/17 0213: Resident Review Statement Resident Statement: examined this patient, discussed with internet sales director, agreed with internet sales director, discussed with family, reviewed EMR data (avail), discussed with nursing , discussed with case mgmt, reviewed images, amended to note Other Findings: This is a 82-year-old female with past medical history significant for coronary artery disease, CABG, peripheral arterial disease, diabetes mellitus, hypertension, hyperlipidemia seizures, insomnia, diastolic heart failure, severe pulmonary hypertension was brought in by ambulance for evaluation of generalized weakness, lethargy and cough for 3 days. She had bypass surgery in 1997 after having a positive stress test and angina. Subsequently she had another myocardial infarction in 2003. Her catheterization at that time showed a 95% PDA lesion which was dilated and stented. She had an occluded LAD, high-grade septal branch circumflex, 100% ostial stenosis of the OM branch, and a 95% ostial stenosis of the left PDA. The right coronary had an 80% mid stenosis. The GOOD graft to the LAD was patent. The arterial graft to the obtuse marginal was patent. The arterial graft to the diagonal was patent. She had a negative stress test in 2007. Echocardiogram in 2016 shows stage II diastolic dysfunction was severe pulmonary hypertension. She was admitted to [facility] in December 2016 for syncope. According to the patient daughter who is at bedside, reports that patient has ongoing cough for last 3 days associated with generalized weakness and lethargy. She was very dehydrated with low oral intake. She checked her blood sugars this morning which were running low, improved after taking some juice. Because of worsening weakness and cough she was brought in for further evaluation. Patient reports that she has sick contact exposure lately. Denies travel history. Denied any fever, chills, short of breath, chest pain, phlegm production, nausea, vomiting, abdominal pain, change in bladder or bowel habits. Patient reports chronic history of urinary frequency and incontinence. She is very compliant with her medications. Denies smoking, alcohol abuse, illicit drug abuse Vitals afebrile, heart rate 82, respiratory rate 18, blood pressure 108/53, saturating at 96 on 3 L. On exam Mucous membranes were dry, S1-S2 normal, bibasilar crackles, JVD, per abdomen soft nontender nondistended, no lower extremity edema Labs WBC 3.1, hemoglobin 11, hematocrit 34, platelet 110 CMP within normal limits LFT normal Troponin negative EKG sinus rhythm, 72, no acute ST-T-wave changes Chest x-ray showed mild cardiomegaly and pulmonary venous congestion as well as fluid overload 1. Flu Patient presented with ongoing cough generalized weakness and lethargy, sick contact exposure for 3 days. She is afebrile with normal leukocyte count. Flu swab was positive for influenza type A. Lactic acid elevated at the time of admission 4.2. Improved after hydration. * Admit to telemetry floor given volume overload and CHF findings. * Continuous telemetry monitoring * Monitor vitals every shift * Provide supplemental oxygen to maintain saturation above 90 * Monitor fever and WBC count * Continue Tamiflu 30 twice daily for next 5 days * Adequate hydration, be gentle given diastolic heart failure * Trend lactic acid * Robitussin for cough 2. Acute on chronic diastolic heart failure/acute hypoxic respiratory failure from fluid overload Patient has chronic history of diastolic heart failure with ejection fraction 65 % and stage II diastolic heart failure from echo in 2017. She usually follows up with Dr. Epstein as an outpatient. Denies taking any water pill. Chest x- ray findings suggestive of cardiomegaly, pulmonary venous congestion, volume overload. ProBNP elevated 3590, positive for JVD. She is requiring 3 L oxygen supplementation. * Admit to telemetry for acute CHF * Telemetry monitoring * Cardiology consult in a.m. * Monitor ins and outs * Will hold off strating Lasix for now given dehydration, lactic acidosis * she doesn't take any Lasix at home * Serial troponin and EKG * Cardiology recommendations regarding Lasix. Diabetes mellitus Hold home medication glimepiride and Januvia Accu-Cheks Insulin sliding scale Generalized weakness PTOT evaluation Lactic acidosis Lactic acid 4.2 at the time of admission. Most likely from dehydration and infection. Received gentle hydration. trended lactic acid. Abnormal UA Patient was found to have esterases, WBC, bacteria on urinalysis. She denies any fever, , lower abdominal pain, urgency, dysuria. However she has chronic urine frequency and incontinence. We'll get urine cultures. Will monitor off of antibiotics. No fever, no WBC count. History of CAD continue aspirin 162 daily PAD continue Cilastazol 50 twice daily Hypertension continue nadolol 40 and losartan 25 daily Hyperlipidemia continue lovastatin 40 daily Insomnia continue melatonin 5 mg Mental health continue risperidone 0.5 twice daily and sertraline 50 at bed time Nerve pain continue gabapentin 100 at bedtime Seizure disorder continue phenytoin 100TID. Please follow-up phenytoin level Full code DVT prophylaxis subcutaneous Lovenox Regular diet VeronicaLiliaremi 08/19/17 0258: Attending MD Review Statement Attending Statement Attending MD Statement: examined this patient, discuss w/resident/PA/SOCIAL MEDIA ASSISTANT, agreed w/resident/PA/SOCIAL MEDIA ASSISTANT, reviewed EMR data (avail), reviewed images, amended to note Attending Assessment/Plan: CC: Lethargy and weakness PMH: CAD S/P CABG (1997), S/P NH (2003) repeat cardiac cath showed extensive CAD , S/P stent (2003) , HFpEF , HTN, HLD, DM, seizure disorder, PVD, subdural hematoma, chronic incontinence, bilateral hip replacement, history of cholecystectomy Patient is [place]ian speaking, history is obtained from patient's daughter. According to patient's daughter patient appeared more lethargic and weak since last 3 days, had decreased by mouth intake and still was taking her oral hypoglycemics. Today her blood sugar was very low and not measurable on the instrument, she was given some oral glucose and it increased up to 180. Other than the lethargy and weakness and decreased by mouth intake patient had cough since last 4 days but denies any nasal congestion or discharge, sinus congestion , fever, chills, shortness of breath, chest pain, PND, orthopnea, weight gain, sputum production, nausea, vomiting. Her son had cold days back according to the daughter. Vitals: T max 99.3, pulse 80s, RR 20, blood pressure 116/68, saturating 95% on 3 L nasal cannula On exam: A O 3, cooperative, no acute distress, neck supple, JVD minimally elevated, no lymphadenopathy, mucosa moist, no focal neurological deficit, no dependent edema, no obvious skin rashes or inflammation CVS: S1-S2, RRR. RS: Mild bibasilar crackles. Abdomen: Soft, NT, ND, bowel sounds present. CXR:Mild cardiomegaly and mild prominence of the pulmonary vasculature suggesting mild volume overload. Assessment and plan 82 year old female with extensive past medical history and multiple comorbidities presented in ER for lethargy and weakness of 3 day duration and an episode of hypoglycemia today. Hypoglycemia. Secondary to decreased by mouth intake given her lethargy and weakness. She also had nonproductive cough since last 4 days and sick contact at home. She was found to be flu positive, mild lactic acidosis of 4.2. Patient received one liter normal saline in ER, ceftriaxone and Tamiflu. Chest x-ray did not show any evidence of pneumonia but there was a concern of pulmonary vascular congestion with mild volume overload. Patient does not appear to be on by mouth Lasix at home. After IV hydration patient's oxygen demand increased to 3 L from room air and she had by basilar crackles as well. IV fluids were discontinued. Given the risk of volume overload and history of diastolic heart failure patient benefits from telemetry observation. + Influenza a + Lactic acidosis + Episode of hypoglycemia + History of CAD S/P CABG (1997), S/P NH (2003) repeat cardiac cath showed extensive CAD, S/P stent (2003) , HFpEF , HTN, HLD, DM, seizure disorder, PVD, chronic incontinence - Admit to telemetry - Continuous telemetry monitoring - Saline lock IV, as patient's oxygen demand, blood pressure and crackles increased after first liter of IV fluid. Trend lactic acid - Continue Tamiflu - No Lasix for now - 1 more set of troponins and ECGs - Hold oral hypoglycemics, continue sliding scale insulin - Continue all her home medications - Patient may need to stop cilostazol outpatient as patient has history of heart failure - DVT prophylaxis
--- NOTE | 2017-08-19 03:00 | Admission Certification ---
Admission Certification Certification Statement - As attending physician, I certify that at the time of - admission, based on clinical presentation, severity of - symptoms, need for further diagnostic testing and - therapeutic interventions, and risk of adverse outcomes - without in-hospital treatment, in my clinical assessment, - this patient requires an acute hospital stay for a minimum - of two nights or longer. I have also considered psychsocial - factors such as support system, advanced age, financial - issues, cognitive issues, and failed out-patient treatments, - past re-admission history, safety of patient, and lack of - compliance as applicable. Specific rationale supporting this admission is: Influenza
[2017-08-19 06:24] LABS: ABSOLUTE BASOPHIL COUNT 0 /CUMM (0.0-0.2); ABSOLUTE EOSINOPHIL COUNT 0.1 /CUMM (0.0-0.7); ABSOLUTE GRANULOCYTE CT 1.3 /CUMM (1.4-6.5); ABSOLUTE MONOCYTE COUNT 0.3 /CUMM (0.10-0.60); BASOPHIL % 0.5 % (0.0-2.0); EOSINOPHIL % 2.2 % (0-5); GRANULOCYTE % 47.5 % (42.2-75.2); MEAN CORPUSCULAR HGB CONC 32.7 G/DL (33.0-37.0); MEAN CORPUSCULAR VOLUME 94.7 FL (81.0-99.0); MEAN PLATELET VOLUME 8.8 FL (7.4-10.4); PLATELET COUNT 93 /CUMM (130-400); RBC DISTRIBUTION WIDTH 15.3 % (11.5-14.5); RED BLOOD CELL CT 3.38 /CUMM (4.20-5.40); WHITE BLOOD CELL COUNT 2.7 /CUMM (4.8-10.8)
--- NOTE | 2017-08-19 08:36 | PN- Housestaff ---
Subjective Follow-up For: Lethargic Cough Hypoglycemia Flu positive Lactic acidosis Subjective: Tmax 99.3, hypertensive, saturating 92 on 3 L of oxygen. Patient is Turkmen speaking however able to communicate her symptom in Kiswahili. She reports dizziness cough and fatigue. She denies any other current active complaints. Review of Systems Constitutional: Reports: see HPI. Objective Last 24 Hrs of Vital Signs/I&O Vital Signs Date Time Temp Pulse Resp B/P B/P Pulse O2 O2 Flow FiO2 Mean Ox Delivery Rate 08/19 0856 80 20 179/77 92 Room Air 08/19 0616 97.3 76 18 164/62 96 Nasal 3.0L Cannula 08/19 0348 98.6 85 20 117/56 95 Nasal 3.0L Cannula 08/19 0120 99.3 08/18 2354 99.3 95 21 162/75 93 Nasal 3.0L Cannula 08/18 1945 97.2 80 20 116/68 97 Room Air 08/18 1848 95 Room Air 08/18 1801 98.6 82 18 108/53 96 Room Air Intake & Output 08/19 1600 08/19 0800 08/19 0000 Intake Total 1000 Output Total Balance 1000 Intake, IV 1000 Patient 54.431 kg Weight Weight Estimated Measurement Method Physical Exam General Appearance: Alert, Oriented X3, Cooperative, No Acute Distress Skin: No Rashes HEENT: Atraumatic, PERRLA, EOMI, Mucous Membr. moist/pink Neck: No JVD Cardiovascular: Regular Rate, Normal S1, Normal S2, No Murmurs Lungs: Clear to Auscultation, Normal Air Movement, except mild crackles at baseline with the right being more than left Abdomen: Soft, No Tenderness Extremities: No Clubbing, No Cyanosis, trace edema Current Medications: Current Medications Sig/Ellen Start time Last Medication Dose Route Stop Time Status Admin Acetaminophen 0 .STK-MED ONE 08/19 122 DC PO Acetaminophen 650 MG Q6P PRN 08/18 2300 AC 08/19 PO 0120 Ascorbic Acid 500 MG DAILY 08/19 1000 AC PO Aspirin Buffered 162 MG DAILY 08/19 1000 AC PO Atorvastatin Calcium 40 MG 1700 08/19 1700 AC PO Calcium 600 MG BID 08/19 1000 AC PO Ceftriaxone Sodium 0 .STK-MED ONE 08/18 2042 DC .ROUTE Ceftriaxone Sodium 1,000 MG ONCE ONE 08/18 2029 DC 08/18 IV 08/18 Cholecalciferol 1,000 IU DAILY 08/19 1000 AC PO Cilostazol 50 MG BID 08/19 1000 AC PO Cyanocobalamin 1,000 MCG DAILY 08/19 1000 AC PO Enoxaparin Sodium 40 MG DAILY 08/19 1000 AC SC Folic Acid 1 MG DAILY 08/19 1000 AC PO Gabapentin 100 MG AT BEDTIME 08/19 2200 AC PO Guaifenesin 0 .STK-MED ONE 08/19 0123 DC PO Guaifenesin 10 ML Q6P PRN 08/18 2345 AC 08/19 PO 0120 Insulin Aspart 0 TIDAC 08/18 2315 AC 08/18 SC 2358 Losartan Potassium 25 MG DAILY 08/19 1000 AC PO Magnesium Oxide 400 MG DAILY 08/19 1000 AC PO Melatonin 5 MG QPM 08/19 2200 AC PO Multivitamins 1 TAB DAILY 08/19 1000 AC Therapeutic PO Nadolol 40 MG DAILY 08/19 1000 AC PO Oseltamivir Phosphate 75 MG BID 08/18 220 CAN PO 08/22 2158 Oseltamivir Phosphate 30 MG BID 08/18 2200 AC 08/18 PO 08/22 215 2106 Phenytoin 0 .STK-MED ONE 08/18 2326 DC PO Phenytoin 100 MG TID 08/18 2309 AC 08/18 PO 2349 Risperidone 0.5 MG BID 08/18 2310 AC 08/18 PO 2349 Sertraline HCl 50 MG DAILY 08/19 1000 AC PO Sodium Chloride 1,000 ML Q13H 08/18 2345 DC 08/18 IV 08/19 1244 2358 Sodium Chloride 1,000 ML BOLUS ONE 08/18 2000 DC 08/18 IV 08/18 Last 24 Hrs of Lab/Tobias Results Last 24 Hrs of Labs/Mics: Laboratory Tests 08/19/17 0615: CBC w Diff NO MAN DIFF REQ, RBC 3.38 L, MCV 94.7, MCH 31.0, MCHC 32.7 L, RDW 15.3 H, MPV 8.8, Gran % 47.5, Lymphocytes % 37.7, Monocytes % 12.1 H, Eosinophils % 2.2, Basophils % 0.5, Absolute Granulocytes 1.3 L, Absolute Lymphocytes 1.0 L, Absolute Monocytes 0.3, Absolute Eosinophils 0.1, Absolute Basophils 0 08/19/17 0545: Lactic Acid 0.9 08/19/17 0545: Anion Gap 10, Estimated GFR > 60, BUN/Creatinine Ratio 28.8 H, Troponin I 0.07 08/19/17 0013: Troponin I 0.01 08/19/17 0013: Lactic Acid 1.9, Phenytoin 10.3 08/18/17 2140: Lactic Acid 2.9 H 08/18/17 1950: Virus Culture Pending 08/18/171929: Urine Color YEL, Urine Clarity HAZY H, Urine pH 6.0, Ur Specific [place] 1.025, Urine Protein TRACE H, Urine Ketones 15 H, Urine Nitrite NEG, Urine Bilirubin NEG, Urine Urobilinogen 0.2, Ur Leukocyte Esterase SMALL H, Ur Microscopic SEDIMENT EXAMINED, Urine RBC RARE, Urine WBC 15-25 H, Ur Epithelial Cells FEW, Urine Bacteria PACKD H, Urine Hemoglobin NEG, Urine Glucose NEG 08/18/17 1831: Anion Gap 15, Estimated GFR 53 L, BUN/Creatinine Ratio 31.0 H, Glucose 169 H, Lactic Acid 4.2 H, Calcium 9.3, Total Bilirubin 0.4, Direct Bilirubin 0.4, AST 37 H, ALT 44, Alkaline Phosphatase 64, Troponin I < 0.01, [id number] Pept 3590 H, Total Protein 6.8, Albumin 3.8, CBC w Diff NO MAN DIFF REQ, RBC 3.61 L, MCV 94.3, MCH 31.1 H, MCHC 33.0, RDW 14.8 H, MPV 9.1, Gran % 57.6, Lymphocytes % 29.9, Monocytes % 10.2 H, Eosinophils % 1.7, Basophils % 0.6, Absolute Granulocytes 1.8, Absolute Lymphocytes 0.9 L, Absolute Monocytes 0.3, Absolute Eosinophils 0.1, Absolute Basophils 0 Microbiology 08/18 1944 NASOPHARYN: Influenza Virus A & B Rapid Smear - COMP INFLUENZA TYPE A 08/18 1929 URINE ROUT: Urine Culture - RECD Assessment/Plan Assessment: #Generalize weakness and was found to be Flu positive Patient presented with ongoing cough generalized weakness and lethargy, sick contact exposure for 3 days. She is afebrile with normal leukocyte count. Flu swab was positive for influenza type * Continue Tamiflu 30 twice daily for next 5 days * Robitussin for cough * Continue oxygen supplement as needed #Hx of diastolic heart failure developed acute hypoxic respiratory failure after IV fluid possibly 2/2 ongoing flow infection but CHF exacerbation is on the differential She is not on Lasix at home. No lower extremity edema on exam, however chest x- ray revealed cardiomegaly a mild volume overload. BNP is 3600 before she was given the fluid. ACS was ruled out with serial EKG and troponin * Admit to telemetry for possible CHF exacerbation * We will hold IV fluids * Monitor ins and outs * We will follow cardiology recommendation #NIDDM * Hold home medication glimepiride and Januvia * Accu-Cheks * Insulin sliding scale * Diabetic diet #Lactic acidosis resolved with IV hydration * NTD History of CAD, PAD, HTN, HDL, insomnia, peripheral neuropathy, seizure, and mental health We will continue * aspirin 162 daily * Cilastazol 50 twice daily * nadolol 40 and losartan 25 daily * lovastatin 40 daily * melatonin 5 mg * risperidone 0.5 twice daily and * sertraline 50 at bed time * gabapentin 100 at bedtime * phenytoin 100TID, (level on admission was 10.3) -Full code -DVT prophylaxis subcutaneous Lovenox -Regular diet Problem List: 1. Influenza A Pain Ratin Pain Location: NA Pain Goal: Remain pain free Pain Plan: See A&P Tomorrow's Labs & Rationales: CBC to follow platelets
--- NOTE | 2017-08-19 11:35 | PN- Att Addend ---
Attending Addendum Attending Brief Note Patient seen and examined. Plan of care discussed with the medical team and the patient. Available lab work and radiology test reports were reviewed. Patient is awake but lethargic. She denies any fevers overnight. He also denies any chest pain. She is noted to be frequently coughing during exam. Exam: General: Patient awake but lethargic and oriented without any distress CVS: S1 plus S2 without any murmur or gallops Chest: Few scattered crepitation with scattered wheeze. There is no respiratory distress. 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 alert oriented without any focal neuro deficit and follows commands appropriately Extremities: No edema; no clubbing or cyanosis noted Assessment * Acute Influenza type A * Acute viral bronchitis * Hypoxia- could be related to bronchitis or overload of fluid after receiving normal saline in the emergency room * Acute diastolic CHF exacerbated by normal saline * History of diabetes * Lactic acidosis- resolved * Neutropenia * History of seizure disorder- patient currently on phenytoin level of 10.3 on admission Plan * Continue Tamiflu * Monitor oxygen and taper oxygen as tolerated * Continue other medications Current Medications Sig/Ellen Start time Last Medication Dose Route Stop Time Status Admin Acetaminophen 0 .STK-MED ONE 08/19 012 DC PO Acetaminophen 650 MG Q6P PRN 08/18 2300 AC 08/19 PO 0120 Ascorbic Acid 500 MG DAILY 08/19 1000 AC PO Aspirin Buffered 162 MG DAILY 08/19 1000 AC PO Atorvastatin Calcium 40 MG 1700 08/19 1700 AC PO Calcium 600 MG BID 08/19 1000 AC PO Ceftriaxone Sodium 0 .STK-MED ONE 08/18 2042 DC .ROUTE Ceftriaxone Sodium 1,000 MG ONCE ONE 08/18 2030 DC 08/18 IV 08/18 Cholecalciferol 1,000 IU DAILY 08/19 1000 AC PO Cilostazol 50 MG BID 08/19 1000 AC PO Cyanocobalamin 1,000 MCG DAILY 08/19 1000 AC PO Enoxaparin Sodium 40 MG DAILY 08/19 1000 AC SC Folic Acid 1 MG DAILY 08/19 1000 AC PO Gabapentin 100 MG AT BEDTIME 08/19 2200 AC PO Guaifenesin 0 .STK-MED ONE 08/19 0123 DC PO Guaifenesin 10 ML Q6P PRN 08/18 2345 AC 08/19 PO 0120 Insulin Aspart 0 TIDAC 08/18 2315 AC 08/18 [place] 2358 Losartan Potassium 25 MG DAILY 08/19 1000 AC PO Magnesium Oxide 400 MG DAILY 08/19 1000 AC PO Melatonin 5 MG QPM 08/19 2199 AC PO Multivitamins 1 TAB DAILY 08/19 1000 AC Therapeutic PO Nadolol 40 MG DAILY 08/19 1000 AC PO Oseltamivir Phosphate 75 MG BID 08/18 2199 CAN PO 08/22 2158 Oseltamivir Phosphate 30 MG BID 08/18 2199 AC 08/18 PO 08/22 Phenytoin 0 .STK-MED ONE 08/18 2325 DC PO Phenytoin 100 MG TID 08/18 230 AC 08/18 PO 234 Risperidone 0.5 MG BID 08/18 2309 AC 08/18 PO 2348 Sertraline HCl 50 MG DAILY 08/19 1000 AC PO Sodium Chloride 1,000 ML Q13H 08/18 2344 DC 08/18 IV 08/19 1244 2358 Sodium Chloride 1,000 ML BOLUS ONE 08/19 1999 DC 08/18 IV 08/18 Laboratory Tests 08/19/17 0615: CBC w Diff NO MAN DIFF REQ, RBC 3.38 L, MCV 94.7, MCH 31.0, MCHC 32.7 L, RDW 15.3 H, MPV 8.8, Gran % 47.5, Lymphocytes % 37.7, Monocytes % 12.1 H, Eosinophils % 2.2, Basophils % 0.5, Absolute Granulocytes 1.3 L, Absolute Lymphocytes 1.0 L, Absolute Monocytes 0.3, Absolute Eosinophils 0.1, Absolute Basophils 0 08/19/17 0545: Lactic Acid 0.9 08/19/17 0545: Anion Gap 10, Estimated GFR > 60, BUN/Creatinine Ratio 28.8 H, Troponin I 0.07 08/19/17 0013: Troponin I 0.01 08/19/17 0013: Lactic Acid 1.9, Phenytoin 10.3 08/18/17 2140: Lactic Acid 2.9 H 08/18/17 1950: Virus Culture Pending 08/18/17 1930: Urine Color YEL, Urine Clarity HAZY H, Urine pH 6.0, Ur Specific [place] 1.025, Urine Protein TRACE H, Urine Ketones 15 H, Urine Nitrite NEG, Urine Bilirubin NEG, Urine Urobilinogen 0.2, Ur Leukocyte Esterase SMALL H, Ur Microscopic SEDIMENT EXAMINED, Urine RBC RARE, Urine WBC 15-25 H, Ur Epithelial Cells FEW, Urine Bacteria PACKD H, Urine Hemoglobin NEG, Urine Glucose NEG 08/18/17 1831: Anion Gap 15, Estimated GFR 53 L, BUN/Creatinine Ratio 31.0 H, Glucose 169 H, Lactic Acid 4.2 H, Calcium 9.3, Total Bilirubin 0.4, Direct Bilirubin 0.4, AST 37 H, ALT 44, Alkaline Phosphatase 64, Troponin I < 0.01, [id number] Pept 3590 H, Total Protein 6.8, Albumin 3.8, CBC w Diff NO MAN DIFF REQ, RBC 3.61 L, MCV 94.3, MCH 31.1 H, MCHC 33.0, RDW 14.8 H, MPV 9.1, Gran % 57.6, Lymphocytes % 29.9, Monocytes % 10.2 H, Eosinophils % 1.7, Basophils % 0.6, Absolute Granulocytes 1.8, Absolute Lymphocytes 0.9 L, Absolute Monocytes 0.3, Absolute Eosinophils 0.1, Absolute Basophils 0 Microbiology 08/18 1944 NASOPHARYN: Influenza Virus A & B Rapid Smear - COMP INFLUENZA TYPE A 08/18 1929 URINE ROUT: Urine Culture - RECD Vital Signs Date Time Temp Pulse Resp B/P B/P Pulse O2 O2 Flow FiO2 Mean Ox Delivery Rate 08/19 0856 80 20 179/77 92 Room Air 08/19 0616 97.3 76 18 164/62 96 Nasal 3.0L Cannula 08/19 0348 98.6 85 20 117/56 95 Nasal 3.0L Cannula 08/19 0120 99.3 08/18 2354 99.3 95 21 162/75 93 Nasal 3.0L Cannula 08/18 194 97.2 80 20 116/68 97 Room Air 08/18 1848 95 Room Air 08/18 1801 98.6 82 18 108/53 96 Room Air Intake & Output 08/19 1600 08/19 0800 08/19 0000 Intake Total 1000 Output Total Balance 1000 Intake, IV 1000 Patient 120 lb Weight Weight Estimated Measurement Method
--- NOTE | 2017-08-19 14:04 | Cons- Cardiology ---
General Information and HPI Consulting Request Date of Consult: 08/19/17 Requested By: Kanwal VIDAL,Vicky Reason for Consult: ?CHF Source of Information: patient, old records Exam Limitations: language barrier History of Present Illness: Melissa Sparrow is an 82-year-old female who I have been following for many years. She had bypass surgery in 1997 after having a positive stress test and angina. Subsequently she had another myocardial infarction in 2003. Her catheterization at that time showed a 95% PDA lesion which was dilated and stented. She had an occluded LAD, high-grade septal branch circumflex, 100% ostial stenosis of the OM branch, and a 95% ostial stenosis of the left PDA. The right coronary had an 80% mid stenosis. The GOOD graft to the LAD was patent. The arterial graft to the obtuse marginal was patent. The arterial graft to the diagonal was patent. Subsequently she has done well from a cardiac standpoint. She had a negative stress test in 2007, and her echo in 2010 showed normal left ventricular systolic function, some thickening of the mitral valve and aortic valve, and right ventricular systolic pressure at upper limits of normal. Subsequently she has had other issues. She has peripheral vascular disease with previous angioplasty in 2010. She has a seizure disorder. She has had bilateral hip replacements and a cholecystectomy. She was hospitalized at [facility] in 07/2013 for a witnessed fall and left side facial fracture, and also exacerbation of her seizure disorder. She had her seizure medications changed She has had no further problems since then with no recurrent seizures. She was hospitalized briefly in October 2014 at [facility]. She came in with nausea and vomiting, and had very elevated blood pressures. She responded to IV fluids, pain medication, etc. Apparently no changes were made to her medications at that time. She was not seen by myself. Subsequently she has had losartan added to her regimen by Dr. Link as her blood pressure was trending a little high and she remains on this medication. Ms. Sparrow was hospitalized again in late November 2016 at [facility]. She came in with an episode of unresponsiveness. She did develop some EKG changes and an elevated troponin to a peak of 1.56, which I thought was secondary to the episode, which we finally decided was probably a seizure, even though her EEG was negative. Her echocardiogram showed good left ventricular systolic function with some LVH and thickening of her mitral and aortic valves and moderate to severe pulmonary hypertension. Gabapentin was added to her regimen subsequently. I last saw her 3 months ago in the office at which time she was at her baseline. She had no cardiac symptoms at that time. She was then doing well until a couple of days ago when the family noted her to be lethargic and brought her in today because of lethargy. She did not apparently have a fever. She was noted to have elevated lactic acid and positive influenza A swab. She was given some IV fluids and subsequently became a little short of breath. She was not having any chest pains. When I saw her she was pretty comfortable. She did not have any chest pain or shortness breath at that time and she was pretty alert. Allergies/Medications Allergies: Coded Allergies: NO KNOWN ALLERGIES (11/05/14) Home Med List: Ascorbate Calcium (Vitamin C) 500 MG TABLET 1 TAB PO DAILY SUPPLEMENT ( Reported) Aspirin (Ecotrin*) 81 MG TABLET.DR 2 TAB PO DAILY HEART/BLOOD (Reported) Bioflav,Lemon/Vit Bcomp,C (Lipo-Flavonoid Plus Caplet) 200 MG-100 MG TABLET 1 TAB PO TID SUPPLEMENT (Reported) Calcium (Elemental-Fr Calcarb) (Calcium) 600 MG CALCIUM (1,500 MG) TABLET 1, 200 MG PO DAILY SUPPLEMENT (Reported) Cholecalciferol (Vitamin D3) (Vitamin D3) 1,000 UNIT CAPSULE 1 CAP PO DAILY SUPPLEMENT (Reported) Cilostazol 100 MG TABLET 0.5 TAB PO BID INTERMITTENT CLAUDICATION (Reported) Cyanocobalamin (Vitamin B-12) (Unknown Strength) TABLET (Unknown Dose) PO DAILY SUPPLEMENT (Reported) Folic Acid 1 MG TABLET 1 TAB PO DAILY SUPPLEMENT (Reported) Gabapentin 100 MG CAPSULE 1 CAP PO AT BEDTIME SLEEP (Reported) Glimepiride 1 MG TABLET 1 TAB PO DAILY DIABETES (Reported) Losartan Potassium 25 MG TABLET 1 TAB PO DAILY HTN (Reported) Lovastatin 40 MG TABLET 1 TAB PO DAILY CHOLESTEROL (Reported) with food Magnesium Oxide (Magnesium) 500 MG CAPSULE 1 CAP PO DAILY SUPPLEMENT ( Reported) Melatonin 5 MG TABLET 1 TAB PO QPM SLEEP (Reported) Multivitamin (Multiple Vitamins) 1 EACH TABLET 1 TAB PO DAILY SUPPLEMENT ( Reported) Nadolol 40 MG TABLET 1 TAB PO DAILY HEART/BP (Reported) [place]-3S/Dha/Epa/Fish Oil ([place]-3 Fish Oil 1,000 MG Sfgl) 300-1,000MG CAPSULE 1 CAP PO DAILY SUPPLEMENT (Reported) Phenytoin Sodium Extended 100 MG CAPSULE 1 CAP PO TID SEIZURES (Reported) Risperidone (Risperdal) 1 MG TABLET 0.5 MG PO BID AGITATION Sertraline HCl 50 MG TABLET 1 TAB PO DAILY MENTAL HEALTH (Reported) Sitagliptin Phos/Metformin HCl (Janumet 50-1,000 MG Tablet) 50 MG-1,000 MG TABLET 1 TAB PO BID DM (Reported) Current Medications: Current Medications Sig/Ellen Start time Last Medication Dose Route Stop Time Status Admin Acetaminophen 0 .STK-MED ONE 08/19 012 DC PO Acetaminophen 650 MG Q6P PRN 08/18 2300 AC 08/19 PO 0120 Albuterol Sulfate 3 ML Q4H PRN 08/19 1400 AC INH Ascorbic Acid 500 MG DAILY 08/19 1000 AC 08/19 PO 1137 Aspirin Buffered 162 MG DAILY 08/19 1000 AC 08/19 PO 1137 Atorvastatin Calcium 40 MG 1700 08/19 1700 AC PO Calcium 600 MG BID 08/19 1000 AC 08/19 PO 1137 Ceftriaxone Sodium 0 .STK-MED ONE 08/18 204 DC .ROUTE Ceftriaxone Sodium 1,000 MG ONCE ONE 08/18 2030 DC 08/18 IV 08/18 Cholecalciferol 1,000 IU DAILY 08/19 1000 AC 08/19 PO 1137 Cilostazol 50 MG BID 08/19 1000 AC 08/19 PO 1137 Cyanocobalamin 1,000 MCG DAILY 08/19 1000 AC 08/19 PO 1137 Enoxaparin Sodium 40 MG DAILY 08/19 1000 AC 08/19 SC 1137 Folic Acid 1 MG DAILY 08/19 1000 AC 08/19 PO 1137 Gabapentin 100 MG AT BEDTIME 08/19 2200 AC PO Guaifenesin 0 .STK-MED ONE 08/19 012 DC PO Guaifenesin 10 ML Q6P PRN 08/18 2345 AC 08/19 PO 0120 Insulin Aspart 0 TIDAC 08/18 2315 AC 08/18 SC 2358 Losartan Potassium 25 MG DAILY 08/19 1000 AC 08/19 PO 1137 Magnesium Oxide 400 MG DAILY 08/19 1000 AC 08/19 PO 1137 Melatonin 5 MG QPM 08/19 2200 AC PO Multivitamins 1 TAB DAILY 08/19 1000 AC 08/19 Therapeutic PO 1137 Nadolol 40 MG DAILY 08/19 1000 AC 08/19 PO 1137 Oseltamivir Phosphate 75 MG BID 08/180 CAN PO 08/22 2158 Oseltamivir Phosphate 30 MG BID 08/18 2199 AC 08/19 PO 08/22 2158 113 Phenytoin 0 .STK-MED ONE 08/18 2326 DC PO Phenytoin 100 MG TID 08/18 2309 AC 08/19 PO 1137 Risperidone 0.5 MG BID 08/18 2310 AC 08/19 PO 1137 Sertraline HCl 50 MG DAILY 08/19 1000 AC 08/19 PO 1137 Sodium Chloride 1,000 ML Q13H 08/18 2345 DC 08/18 IV 08/19 1244 2358 Sodium Chloride 1,000 ML BOLUS ONE 08/19 1999 DC 08/18 IV 08/18 Review of Systems Review of Systems: She has no other complaints in the review of systems at this time. 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 Home Who Do You Live With? child Services at Home: None Primary Language: Citizen Of [place] Smoking Status: Never Smoked ETOH Use: denies use Illicit Drug Use: denies illicit drug use Functional Ability ADLs Independent: dressing, eating, toileting, bathing. Ambulation: walker IADLs Independent: food prep, telephone. Needs Assist: shopping, housework, finances, transportation, medication admin. Exam & Diagnostic Data Vital Signs and I&O Vital Signs Date Time Temp Pulse Resp B/P B/P Pulse O2 O2 Flow FiO2 Mean Ox Delivery Rate 08/19 1329 Nasal 5.0L Cannula 08/19 1137 97.3 78 18 155/71 08/19 1137 97.3 78 18 155/71 08/19 113 97.5 78 18 155/71 95 Room Air Room Air 08/19 0856 80 20 179/77 92 Room Air 08/19 0616 97.3 76 18 164/62 96 Nasal 3.0L Cannula 08/19 0348 98.6 85 20 117/56 95 Nasal 3.0L Cannula 08/19 0120 99.3 08/18 2354 99.3 95 21 162/75 93 Nasal 3.0L Cannula 08/18 1945 97.2 80 20 116/68 97 Room Air 08/18 1848 95 Room Air 08/18 1801 98.6 82 18 108/53 96 Room Air Intake & Output 08/19 1600 08/19 0800 08/19 0000 08/18 1600 08/18 0800 08/18 0000 Intake Total 1000 Output Total Balance 1000 Intake, IV 1000 Patient 120 lb Weight Weight Estimated Measurement Method Physical Exam: Elderly female alert and in no distress HEENT exam normal Chest a few rhonchi and a few coarse rales scattered throughout Heart regular rhythm, 2/6 systolic ejection murmur at the base Abdomen benign Extremities no edema Labs/Tobias Results: Laboratory Tests 08/19 08/19 08/19 08/19 0615 0545 0545 0013 Chemistry Sodium (137 - 145 mmol/L) 142 Potassium (3.5 - 5.1 mmol/L) 3.8 Chloride (98 - 107 mmol/L) 107 Carbon Dioxide (22 - 30 mmol/L) 25 Anion Gap (5 - 16) 10 BUN (7 - 17 mg/dL) 23 H Creatinine (0.5 - 1.0 mg/dL) 0.8 Estimated GFR (>60 ml/min) > 60 BUN/Creatinine Ratio (7 - 25 %) 28.8 H Lactic Acid (0.7 - 2.1 mmol/L) 0.9 Troponin I (< 0.11 ng/ml) 0.07 0.01 Hematology CBC w Diff NO MAN DIFF REQ WBC (4.8 - 10.8 /CUMM) 2.7 L RBC (4.20 - 5.40 /CUMM) 3.38 L Hgb (12.0 - 16.0 G/DL) 10.5 L Hct (37 - 47 %) 32.0 L MCV (81.0 - 99.0 FL) 94.7 MCH (27.0 - 31.0 PG) 31.0 MCHC (33.0 - 37.0 G/DL) 32.7 L RDW (11.5 - 14.5 %) 15.3 H Plt Count (130 - 400 /CUMM) 93 L MPV (7.4 - 10.4 FL) 8.8 Gran % (42.2 - 75.2 %) 47.5 Lymphocytes % (20.5 - 51.1 %) 37.7 Monocytes % (1.7 - 9.3 %) 12.1 H Eosinophils % (0 - 5 %) 2.2 Basophils % (0.0 - 2.0 %) 0.5 Absolute Granulocytes (1.4 - 6.5 /CUMM) 1.3 L Absolute Lymphocytes (1.2 - 3.4 /CUMM) 1.0 L Absolute Monocytes (0.10 - 0.60 /CUMM) 0.3 Absolute Eosinophils (0.0 - 0.7 /CUMM) 0.1 Absolute Basophils (0.0 - 0.2 /CUMM) 0 08/19 08/18 08/18 0013 2140 1950 Chemistry Lactic Acid (0.7 - 2.1 mmol/L) 1.9 2.9 H Serology Virus Culture Pending Toxicology Phenytoin (10.0 - 20.0 ug/mL) 10.3 08/18 08/18 1930 1831 Chemistry Sodium (137 - 145 mmol/L) 140 Potassium (3.5 - 5.1 mmol/L) 4.2 Chloride (98 - 107 mmol/L) 97 L Carbon Dioxide (22 - 30 mmol/L) 27 Anion Gap (5 - 16) 15 BUN (7 - 17 mg/dL) 31 H Creatinine (0.5 - 1.0 mg/dL) 1.0 Estimated GFR (>60 ml/min) 53 L BUN/Creatinine Ratio (7 - 25 %) 31.0 H Glucose (65 - 99 mg/dL) 169 H Lactic Acid (0.7 - 2.1 mmol/L) 4.2 H Calcium (8.4 - 10.2 mg/dL) 9.3 Total Bilirubin (0.2 - 1.3 mg/dL) 0.4 Direct Bilirubin (< 0.4 mg/dL) 0.4 AST (14 - 36 U/L) 37 H ALT (9 - 52 U/L) 44 Alkaline Phosphatase (<127 U/L) 64 Troponin I (< 0.11 ng/ml) < 0.01 Kyx-[id number] Pept (<125 pg/mL) 3590 H Total Protein (6.3 - 8.2 g/dL) 6.8 Albumin (3.5 - 5.0 g/dL) 3.8 Hematology CBC w Diff NO MAN DIFF REQ WBC (4.8 - 10.8 /CUMM) 3.1 L RBC (4.20 - 5.40 /CUMM) 3.61 L Hgb (12.0 - 16.0 G/DL) 11.2 L Hct (37 - 47 %) 34.1 L MCV (81.0 - 99.0 FL) 94.3 MCH (27.0 - 31.0 PG) 31.1 H MCHC (33.0 - 37.0 G/DL) 33.0 RDW (11.5 - 14.5 %) 14.8 H Plt Count (130 - 400 /CUMM) 110 L MPV (7.4 - 10.4 FL) 9.1 Gran % (42.2 - 75.2 %) 57.6 Lymphocytes % (20.5 - 51.1 %) 29.9 Monocytes % (1.7 - 9.3 %) 10.2 H Eosinophils % (0 - 5 %) 1.7 Basophils % (0.0 - 2.0 %) 0.6 Absolute Granulocytes (1.4 - 6.5 /CUMM) 1.8 Absolute Lymphocytes (1.2 - 3.4 /CUMM) 0.9 L Absolute Monocytes (0.10 - 0.60 /CUMM) 0.3 Absolute Eosinophils (0.0 - 0.7 /CUMM) 0.1 Absolute Basophils (0.0 - 0.2 /CUMM) 0 Urines Urine Color (YEL,AMB,STR) YEL Urine Clarity (CLEAR) HAZY H Urine pH (5.0 - 8.0) 6.0 Ur Specific [place] (1.001 - 1.035) 1.025 Urine Protein (NEG,<30 MG/DL) TRACE H Urine Ketones (NEG) 15 H Urine Nitrite (NEG) NEG Urine Bilirubin (NEG) NEG Urine Urobilinogen (0.1 - 1.0 EU/dl) 0.2 Ur Leukocyte Esterase (NEG) SMALL H Ur Microscopic SEDIMENT EXAMINED Urine RBC (0 - 5 /HPF) RARE Urine WBC (0 - 2 /HPF) 15-25 H Ur Epithelial Cells (NONE,FEW) FEW Urine Bacteria (NEG/NONE) PACKD H Urine Hemoglobin (NEG) NEG Urine Glucose (N MG/DL) NEG Diagnostic Data EKG Results Initial EKG showed sinus rhythm rate of 79, LVH, lateral T-wave changes. Repeat EKG showed a little bit less in the way of the T-wave changes laterally otherwise unchanged. CXR Results PATIENT: MELISSA SPARROW PRESENT AGE: 82 PATIENT ACCOUNT NO: [id number] : 34 LOCATION: [facility] ORDERING PHYSICIAN: Wyatt Carolina MD SERVICE DATE: 08/18/17 EXAM TYPE: RAD - XRY-CHEST XRAY, TWO VIEWS EXAMINATION: XR CHEST CLINICAL INFORMATION: Cough. COMPARISON: History of 12/22/2016. TECHNIQUE: 2 views of the chest were obtained. FINDINGS: The heart is enlarged and there is mild prominence of pulmonary vasculature. No pleural effusion. No focal airspace consolidation. Postoperative changes of prior median sternotomy. Degenerative changes of both shoulders and the partially visualized spine. No acute osseous finding. IMPRESSION: Mild cardiomegaly and mild prominence of the pulmonary vasculature suggesting mild volume overload. DICTATED BY: Ankit Hampton MD DATE/TIME DICTATED:08/18/172053 CORE BAKER:ALEX DATE/TIME TRANSCRIBED:08/18/172053 CONFIDENTIAL, DO NOT COPY WITHOUT APPROPRIATE AUTHORIZATION. <Electronically signed in Other Vendor System> SIGNED BY: Ankit Hampton MD 08/18/172057 Assessment/Plan Assessment/Plan The patient is an 82-year-old female with underlying coronary artery disease, status post bypass. She came in with lethargy and has a positive influenza test. She got some IV fluids because of the influenza and elevated lactic acid and became a little short of breath. She seems to be improved at this time. I don't believe she received a diuretic. She is not having any chest pain. Her troponins are negative 3. I recommend giving her one dose of oral Lasix at this time. I don't think she needs chronic Lasix. I don't think she needs an echocardiogram as her echoes have consistently shown good LV function. She can be followed on telemetry for 24 hours and if then stable this can be discontinued. Copies To: Thais VIDAL,Norma Consult Acknowledgment - Thank you for your consult request.
[2017-08-19 18:16] VITALS: BP 140/80
[2017-08-19 22:07] VITALS: BP 140/58
[2017-08-20 08:30] LABS: ABSOLUTE BASOPHIL COUNT 0 /CUMM (0.0-0.2); ABSOLUTE EOSINOPHIL COUNT 0 /CUMM (0.0-0.7); ABSOLUTE LYMPH COUNT 1.3 /CUMM (1.2-3.4); ABSOLUTE MONOCYTE COUNT 0.3 /CUMM (0.10-0.60); BASOPHIL % 0.3 % (0.0-2.0); EOSINOPHIL % 0.1 % (0-5); HEMATOCRIT 33.7 % (37-47); MEAN CORPUSCULAR HGB 31.6 PG (27.0-31.0); MEAN CORPUSCULAR HGB CONC 33.5 G/DL (33.0-37.0); MEAN CORPUSCULAR VOLUME 94.6 FL (81.0-99.0); MEAN PLATELET VOLUME 10.3 FL (7.4-10.4); PLATELET COUNT 95 /CUMM (130-400); RED BLOOD CELL CT 3.57 /CUMM (4.20-5.40)
--- NOTE | 2017-08-20 08:34 | PN- Housestaff ---
Subjective Follow-up For: Lethargic Acute hypoxic respiratory failure Cough Hypoglycemia resolved Flu positive Lactic acidosis resolved Subjective: Febrile up to 101.3, continued to require high flow oxygen, hemodynamically stable but with wide pulse pressure. Patient still lethargic but looks better than yesterday. Granddaughter believes that the patient mentation is below baseline. Review of Systems Constitutional: Reports: see HPI. Objective Last 24 Hrs of Vital Signs/I&O Vital Signs Date Time Temp Pulse Resp B/P B/P Pulse O2 O2 Flow FiO2 Mean Ox Delivery Rate 08/20 1015 80 122/50 08/20 1014 80 122/50 08/20 0937 98.5 80 20 122/50 99 08/20 0306 95 Nasal 60% Cannula 08/20 0000 Nasal 60% Cannula 08/19 2323 99.7 08/19 2234 94 Nasal 60% Cannula 08/19 2207 101.3 85 20 140/58 91 Nasal Cannula 08/19 2135 101.3 08/19 1922 93 Nasal 60% Cannula 08/19 1900 94 Nasal 60% Cannula 08/19 1816 99.6 92 26 140/80 94 08/19 1631 98.0 85 22 164/77 96 Nasal 4.0L Cannula 08/19 1503 89 28 165/77 84 Nasal Cannula 08/19 1329 Nasal 5.0L Cannula 08/19 1137 97.3 78 18 155/71 08/19 1137 97.3 78 18 155/71 08/19 1137 97.5 78 18 155/71 95 Room Air Room Air Intake & Output 08/20 1600 08/20 0800 08/20 0000 Intake Total 64 Output Total 400 600 Balance -336 -600 Intake, IV 14 Intake, Oral 50 Output, Urine 400 600 Patient 58.145 kg Weight Weight Bed scale Measurement Method Physical Exam General Appearance: Alert, Cooperative, No Acute Distress, oriented X1 Skin: No Rashes HEENT: Atraumatic, PERRLA, EOMI, Mucous Membr. moist/pink Neck: minimal JVD Cardiovascular: Regular Rate, Normal S1, Normal S2, 2/6systolic murmur Lungs: scatter bronchi and crackles at baseline Abdomen: Soft, No Tenderness Neurological: Normal Speech Extremities: No Clubbing, No Cyanosis, No Edema Current Medications: Current Medications Sig/Ellen Start time Last Medication Dose Route Stop Time Status Admin Acetaminophen 650 MG .STK-MED ONE 08/19 2131 DC PO 08/19 2132 Acetaminophen 650 MG Q6P PRN 08/18 2300 AC 08/19 PO 2135 Albuterol Sulfate 3 ML Q4H PRN 08/19 1400 AC INH Ascorbic Acid 500 MG DAILY 08/19 1000 AC 08/20 PO 1018 Aspirin Buffered 162 MG DAILY 08/19 1000 AC 08/20 PO 1014 Atorvastatin Calcium 40 MG 1700 08/19 1700 AC 08/20 PO 0008 Calcium 600 MG BID 08/19 1000 AC 08/20 PO 1016 Cholecalciferol 1,000 IU DAILY 08/19 1000 AC 08/20 PO 1018 Cilostazol 50 MG BID 08/19 1000 AC 08/20 PO 1016 Cyanocobalamin 1,000 MCG DAILY 08/19 1000 AC 08/20 PO 1018 Enoxaparin Sodium 40 MG DAILY 08/19 1000 AC 08/20 SC 1013 Folic Acid 1 MG DAILY 08/19 1000 AC 08/20 PO 1014 Furosemide 40 MG 0930 08/20 0930 DC IV 08/20 0931 Furosemide 40 MG .STK-MED ONE 08/20 0005 DC IV 08/20 0006 Furosemide 0 .STK-MED ONE 08/19 1655 DC IV Furosemide 40 MG ONCE ONE 08/19 1630 DC 08/20 IV 08/19 1631 0009 Gabapentin 100 MG AT BEDTIME 08/19 2200 AC 08/19 PO 2137 Guaifenesin 10 ML Q6P PRN 08/19 1730 AC PO Guaifenesin 10 ML Q6P PRN 08/18 2345 AC 08/19 PO 0120 Insulin Aspart 0 TIDAC 08/18 2315 AC 08/18 SC 2358 Losartan Potassium 25 MG DAILY 08/19 1000 AC 08/20 PO 1014 Magnesium Oxide 400 MG DAILY 08/19 1000 AC 08/20 PO 1014 Melatonin 5 MG QPM 08/19 2200 AC 08/19 PO 2137 Multivitamins 1 TAB DAILY 08/19 1000 AC 08/20 Therapeutic PO 1018 Nadolol 40 MG DAILY 08/19 1000 AC 08/20 PO 1015 Oseltamivir Phosphate 30 MG BID 08/18 2200 AC 08/20 PO 08/22 2159 0009 Phenytoin 100 MG TID 08/18 2309 AC 08/20 PO 1014 Risperidone 0.5 MG BID 08/18 2310 AC 08/20 PO 1018 Sertraline HCl 50 MG DAILY 08/19 1000 AC 08/20 PO 1018 Last 24 Hrs of Lab/Tobias Results Last 24 Hrs of Labs/Mics: Laboratory Tests 08/20/17 0610: CBC w Diff NO MAN DIFF REQ, RBC 3.57 L, MCV 94.6, MCH 31.6 H, MCHC 33.5, RDW 15.0 H, MPV 10.3, Gran % 71.7, Lymphocytes % 22.4, Monocytes % 5.5, Eosinophils % 0.1, Basophils % 0.3, Absolute Granulocytes 4.0, Absolute Lymphocytes 1.3, Absolute Monocytes 0.3, Absolute Eosinophils 0, Absolute Basophils 0 08/19/17 1915: D-Dimer High Sensitivty 626 H 08/19/17 1724: pH 7.42, pCO2 33 L, pO2 63 L, HCO3 21.3, ABG O2 Sat (Measured) 92.0 L, Carboxyhemoglobin 0.3 L, O2 Concentration % 5L, O2 Delivery Method NC, Phlebotomy Draw Site RIGHT RADIAL Assessment/Plan Assessment: #Acute hypoxic respiratory failure/fluid positive Patient using oxygen at home, she desaturated down to the 80s for which she was started on 3 L of oxygen, yesterday oxygen requirement increased, currently she is on high flow oxygen. She has a history of diastolic heart failure and was given to bag of IV fluid after admission. Her symptom could be multifactorial secondary to positive flu and possibly diastolic heart failure. She developed fever overnight which raise concern of post flu pneumonia. * Continue telemetry * Repeat x-ray to look for pleural effusion and any signs of pneumonia * Continue Tamiflu * Continue puffiness and * Continue oxygen as needed * 1 dose of 40 mg IV Lasix * Monitor ins and outs * We will follow cardiology recommendation #NIDDM * Hold home medication glimepiride and Januvia * Accu-Cheks * Insulin sliding scale * Diabetic diet #Lactic acidosis resolved with IV hydration * NTD #Positive urine culture * Had fever 101.3 overnight * Would possibly require antibiotic, especially that urinary symptom cannot be ruled out #History of CAD, PAD, HTN, HDL, insomnia, peripheral neuropathy, seizure, and mental health We will continue * aspirin 162 daily * Cilastazol 50 twice daily * nadolol 40 and losartan 25 daily * lovastatin 40 daily * melatonin 5 mg * risperidone 0.5 twice daily and * sertraline 50 at bed time * gabapentin 100 at bedtime * phenytoin 100TID, (level on admission was 10.3) -Full code -DVT prophylaxis subcutaneous Lovenox -Regular diet Problem List: 1. Influenza A Pain Ratin Pain Location: NA Pain Goal: Remain pain free Pain Plan: See A&P Tomorrow's Labs & Rationales: BEP to follow K after Lasix
[2017-08-20 09:13] LABS: GRANULOCYTE % 71.7 % (42.2-75.2); WHITE BLOOD CELL COUNT 5.6 /CUMM (4.8-10.8)
--- NOTE | 2017-08-20 09:31 | PN- Cardiology ---
Subjective Subjective: The patient has no complaints at this time. However she is on 20% oxygen due to low oxygen saturation yesterday at 84. She is a little febrile at this time with a maximum of 101.3 last evening. She has had no arrhythmias. Peak troponin was 0.07 which is still within the negative range. She did receive some Lasix yesterday. Objective Vital Signs and I&Os Vital Signs Date Time Temp Pulse Resp B/P B/P Pulse O2 O2 Flow FiO2 Mean Ox Delivery Rate 08/20 0306 95 Nasal 60% Cannula 08/20 0000 Nasal 60% Cannula 08/19 2323 99.7 08/19 2234 94 Nasal 60% Cannula 08/19 2207 101.3 85 20 140/58 91 Nasal Cannula 08/19 213 101.3 08/19 1922 93 Nasal 60% Cannula 08/19 1900 94 Nasal 60% Cannula 08/19 1816 99.6 92 26 140/80 94 08/19 1631 98.0 85 22 164/77 96 Nasal 4.0L Cannula 08/19 1503 89 28 165/77 84 Nasal Cannula 08/19 1329 Nasal 5.0L Cannula 08/19 1137 97.3 78 18 155/71 08/19 1137 97.3 78 18 155/71 08/19 1137 97.5 78 18 155/71 95 Room Air Room Air Intake & Output 08/20 1600 08/20 0800 08/20 0000 08/19 1600 08/19 0800 08/19 0000 Intake Total 64 1000 Output Total 400 600 Balance -336 -600 1000 Intake, IV 14 1000 Intake, Oral 50 Output, Urine 400 600 Patient 128 lb 120 lb Weight Weight Bed scale Estimated Measurement Method Physical Exam: She is a little lethargic but arousable HEENT exam is normal Chest reveals a few rhonchi and some mild wheezing Heart regular rhythm, soft systolic murmur at the base Extremities no edema Current Medications: Current Medications Sig/Ellen Start time Last Medication Dose Route Stop Time Status Admin Acetaminophen 650 MG .STK-MED ONE 08/19 2130 DC PO 08/20 2131 Acetaminophen 650 MG Q6P PRN 08/18 2300 AC 08/19 PO 213 Albuterol Sulfate 3 ML Q4H PRN 08/19 1400 AC INH Ascorbic Acid 500 MG DAILY 08/19 1000 AC 08/19 PO 1137 Aspirin Buffered 162 MG DAILY 08/19 1000 AC 08/19 PO 1137 Atorvastatin Calcium 40 MG 1700 08/19 1700 AC 08/20 PO 0008 Calcium 600 MG BID 08/19 1000 AC 08/19 PO 2138 Cholecalciferol 1,000 IU DAILY 08/19 1000 AC 08/19 PO 1137 Cilostazol 50 MG BID 08/19 1000 AC 08/19 PO 2136 Cyanocobalamin 1,000 MCG DAILY 08/19 1000 AC 08/19 PO 1137 Enoxaparin Sodium 40 MG DAILY 08/19 1000 AC 08/19 SC 1137 Folic Acid 1 MG DAILY 08/19 1000 AC 08/19 PO 1137 Furosemide 40 MG 0930 08/20 0930 AC IV 08/20 0931 Furosemide 40 MG .STK-MED ONE 08/20 0005 DC IV 08/20 0006 Furosemide 0 .STK-MED ONE 08/19 1655 DC IV Furosemide 40 MG ONCE ONE 08/19 1630 DC 08/20 IV 08/19 1631 0009 Gabapentin 100 MG AT BEDTIME 08/19 2200 AC 08/19 PO 2137 Guaifenesin 10 ML Q6P PRN 08/19 1730 AC PO Guaifenesin 10 ML Q6P PRN 08/18 2345 AC 08/19 PO 0120 Insulin Aspart 0 TIDAC 08/18 2315 AC 08/18 SC 2358 Losartan Potassium 25 MG DAILY 08/19 1000 AC 08/19 PO 1137 Magnesium Oxide 400 MG DAILY 08/19 1000 AC 08/19 PO 1137 Melatonin 5 MG QPM 08/19 2200 AC 08/19 PO 2137 Multivitamins 1 TAB DAILY 08/19 1000 AC 08/19 Therapeutic PO 1137 Nadolol 40 MG DAILY 08/19 1000 AC 08/19 PO 1137 Oseltamivir Phosphate 30 MG BID 08/18 2200 AC 08/20 PO 08/22 2159 0009 Phenytoin 100 MG TID 08/18 2309 AC 08/19 PO 2137 Risperidone 0.5 MG BID 08/18 2310 AC 08/19 PO 2137 Sertraline HCl 50 MG DAILY 08/19 1000 AC 08/19 PO 1137 Results Last 48 Hrs of Labs/Mics: Laboratory Tests 08/20/17 0610: CBC w Diff NO MAN DIFF REQ, RBC 3.57 L, MCV 94.6, MCH 31.6 H, MCHC 33.5, RDW 15.0 H, MPV 10.3, Gran % 71.7, Lymphocytes % 22.4, Monocytes % 5.5, Eosinophils % 0.1, Basophils % 0.3, Absolute Granulocytes 4.0, Absolute Lymphocytes 1.3, Absolute Monocytes 0.3, Absolute Eosinophils 0, Absolute Basophils 0 08/19/17 1915: D-Dimer High Sensitivty 626 H 08/19/17 1724: pH 7.42, pCO2 33 L, pO2 63 L, HCO3 21.3, ABG O2 Sat (Measured) 92.0 L, Carboxyhemoglobin 0.3 L, O2 Concentration % 5L, O2 Delivery Method NC, Phlebotomy Draw Site RIGHT RADIAL 08/19/17 06: CBC w Diff NO MAN DIFF REQ, RBC 3.38 L, MCV 94.7, MCH 31.0, MCHC 32.7 L, RDW 15.3 H, MPV 8.8, Gran % 47.5, Lymphocytes % 37.7, Monocytes % 12.1 H, Eosinophils % 2.2, Basophils % 0.5, Absolute Granulocytes 1.3 L, Absolute Lymphocytes 1.0 L, Absolute Monocytes 0.3, Absolute Eosinophils 0.1, Absolute Basophils 0 08/19/17 0545: Lactic Acid 0.9 08/19/17 0545: Anion Gap 10, Estimated GFR > 60, BUN/Creatinine Ratio 28.8 H, Troponin I 0.07 08/19/17 0013: Troponin I 0.01 08/19/17 0013: Lactic Acid 1.9, Phenytoin 10.3 08/18/17 2140: Lactic Acid 2.9 H 08/18/17 1950: Virus Culture Pending 08/18/17 1930: Urine Color YEL, Urine Clarity HAZY H, Urine pH 6.0, Ur Specific [place] 1.025, Urine Protein TRACE H, Urine Ketones 15 H, Urine Nitrite NEG, Urine Bilirubin NEG, Urine Urobilinogen 0.2, Ur Leukocyte Esterase SMALL H, Ur Microscopic SEDIMENT EXAMINED, Urine RBC RARE, Urine WBC 15-25 H, Ur Epithelial Cells FEW, Urine Bacteria PACKD H, Urine Hemoglobin NEG, Urine Glucose NEG 08/18/17 1831: Anion Gap 15, Estimated GFR 53 L, BUN/Creatinine Ratio 31.0 H, Glucose 169 H, Lactic Acid 4.2 H, Calcium 9.3, Total Bilirubin 0.4, Direct Bilirubin 0.4, AST 37 H, ALT 44, Alkaline Phosphatase 64, Troponin I < 0.01, Lwc-[id number]-Fkcfxxiiydg Pept 3590 H, Total Protein 6.8, Albumin 3.8, CBC w Diff NO MAN DIFF REQ, RBC 3.61 L, MCV 94.3, MCH 31.1 H, MCHC 33.0, RDW 14.8 H, MPV 9.1, Gran % 57.6, Lymphocytes % 29.9, Monocytes % 10.2 H, Eosinophils % 1.7, Basophils % 0.6, Absolute Granulocytes 1.8, Absolute Lymphocytes 0.9 L, Absolute Monocytes 0.3, Absolute Eosinophils 0.1, Absolute Basophils 0 Microbiology 08/18 1944 NASOPHBIG SANDYN: Influenza Virus A & B Rapid Smear - COMP INFLUENZA TYPE A Assessment/Plan Assessment/Plan Mrs. Willson is still febrile from her influenza. She is on Tamiflu. She may have mild CHF. She's been given diuretics. I recommend a follow-up chest x-ray. She should have respiratory treatments with an aim to wean her off oxygen. Continue telemetry? Yes
[2017-08-20 09:37] VITALS: BP 122/50
--- NOTE | 2017-08-20 11:18 | RADIOLOGY REPORT ---
EXAMINATION: XR PORTABLE CHEST CLINICAL INFORMATION: Cough, fever. History of CHF. COMPARISON: Chest done on 08/18/2017. TECHNIQUE: Portable frontal view of the chest was obtained. FINDINGS: Interval development of asymmetric diffuse airspace opacities noted within the entire left hemithorax, may represent asymmetric pulmonary edema versus infection or combination thereof. Previously documented pulmonary venous congestion on the right side shows near-complete resolution. Subtle airspace opacifications are noted at both lung bases, unchanged. There is likely a trace amount of bilateral pleural effusions present, new since prior study. The cardiomediastinal silhouette is mildly enlarged, unchanged. Postop changes of sternotomy and CABG is present. IMPRESSION: 1. Previously documented pulmonary venous congestion shows interval resolution. 2. Interval development of asymmetric diffuse airspace opacification is noted within the left hemithorax, may represent interval development of asymmetric pulmonary edema versus infection or combination thereof. 3. Trace amount of bilateral pleural effusions, new since prior study. 4. No other significant change.
--- NOTE | 2017-08-20 11:33 | PN- Att Addend ---
Attending Addendum Attending Brief Note Patient seen and examined. Plan of care discussed with the medical team and the patient. Available lab work and radiology test reports were reviewed. Patient is awake but lethargic. She mostly speaks Icelandic but able to answer simple questions. Events overnight were noted. Patient became hypoxic and required up to 60% of FiO2 at some point. This morning she had 20% of FiO2. She denies any fevers overnight. He also denies any chest pain. She is noted to be frequently coughing during exam. Exam: General: Patient awake but lethargic and oriented without any distress; CVS: S1 plus S2 without any murmur or gallops Chest: Few scattered crepitation with scattered wheeze. There is no respiratory distress. Abdomen: Soft non-tender, bowel sound present, no guarding or rebound [employer] WORK[employer]: Awake alert oriented without any focal neuro deficit and follows commands appropriately Extremities: No edema; no clubbing or cyanosis noted Assessment * Acute Influenza type A * Acute viral bronchitis * Hypoxia- could be related to bronchitis or overload of fluid after receiving normal saline in the emergency room * Acute diastolic CHF exacerbated by normal saline * History of diabetes * Lactic acidosis- resolved * Neutropenia * History of seizure disorder- patient currently on phenytoin level of 10.3 on admission * Elevated d-dimer- no suspicion of pulmonary embolism based on exam and laboratory workup otherwise. Note the patient was in room air and she arrived to ED. Plan * Continue Tamiflu * Repeat Lasix IV dose 40 mg * Continue to monitor input output and daily weights * Check CT chest without contrast further delineate left-sided opacity; if CT shows consolidation suggestive of pneumonia then we will start ceftriaxone plus azithromycin * Monitor oxygen and taper oxygen as tolerated * Continue other medications Current Medications Sig/Ellen Start time Last Medication Dose Route Stop Time Status Admin Acetaminophen 650 MG .STK-MED ONE 08/191 DC PO 08/19 213 Acetaminophen 650 MG Q6P PRN 08/18 2300 AC 08/19 PO 2135 Albuterol Sulfate 3 ML Q4H PRN 08/19 1400 AC INH Ascorbic Acid 500 MG DAILY 08/19 1000 AC 08/20 PO 1018 Aspirin Buffered 162 MG DAILY 08/19 1000 AC 08/20 PO 1014 Atorvastatin Calcium 40 MG 1700 08/19 1700 AC 08/20 PO 0008 Calcium 600 MG BID 08/19 1000 AC 08/20 PO 1016 Cholecalciferol 1,000 IU DAILY 08/19 1000 AC 08/20 PO 1018 Cilostazol 50 MG BID 08/19 1000 AC 08/20 PO 1016 Cyanocobalamin 1,000 MCG DAILY 08/19 1000 AC 08/20 PO 1018 Enoxaparin Sodium 40 MG DAILY 08/19 1000 AC 08/20 SC 1013 Folic Acid 1 MG DAILY 08/19 1000 AC 08/20 PO 1014 Furosemide 40 MG 0930 08/20 0930 DC IV 08/20 0931 Furosemide 40 MG .STK-MED ONE 08/20 0005 DC IV 08/20 0006 Furosemide 0 .STK-MED ONE 08/19 1655 DC IV Furosemide 40 MG ONCE ONE 08/19 1630 DC 08/20 IV 08/19 1631 0009 Gabapentin 100 MG AT BEDTIME 08/19 2200 AC 08/19 PO 2137 Guaifenesin 10 ML Q6P PRN 08/19 1730 AC PO Guaifenesin 10 ML Q6P PRN 08/18 2345 AC 08/19 PO 0120 Insulin Aspart 0 TIDAC 08/18 2315 AC 08/18 SC 2358 Losartan Potassium 25 MG DAILY 08/19 1000 AC 08/20 PO 1014 Magnesium Oxide 400 MG DAILY 08/19 1000 AC 08/20 PO 1014 Melatonin 5 MG QPM 08/19 2200 AC 08/19 PO 2137 Multivitamins 1 TAB DAILY 08/19 1000 AC 08/20 Therapeutic PO 1018 Nadolol 40 MG DAILY 08/19 1000 AC 08/20 PO 1015 Oseltamivir Phosphate 30 MG BID 08/180 AC 08/20 PO 08/22 2159 0009 Phenytoin 100 MG TID 08/18 2309 AC 08/20 PO 1014 Risperidone 0.5 MG BID 08/18 2310 AC 08/20 PO 1018 Sertraline HCl 50 MG DAILY 08/19 1000 AC 08/20 PO 1018 Laboratory Tests 08/20/ 0610: CBC w Diff NO MAN DIFF REQ, RBC 3.57 L, MCV 94.6, MCH 31.6 H, MCHC 33.5, RDW 15.0 H, MPV 10.3, Gran % 71.7, Lymphocytes % 22.4, Monocytes % 5.5, Eosinophils % 0.1, Basophils % 0.3, Absolute Granulocytes 4.0, Absolute Lymphocytes 1.3, Absolute Monocytes 0.3, Absolute Eosinophils 0, Absolute Basophils 0 08/19/17 1915: D-Dimer High Sensitivty 626 H 08/19/17 1724: pH 7.42, pCO2 33 L, pO2 63 L, HCO3 21.3, ABG O2 Sat (Measured) 92.0 L, Carboxyhemoglobin 0.3 L, O2 Concentration % 5L, O2 Delivery Method NC, Phlebotomy Draw Site RIGHT RADIAL 08/19/17 0615: CBC w Diff NO MAN DIFF REQ, RBC 3.38 L, MCV 94.7, MCH 31.0, MCHC 32.7 L, RDW 15.3 H, MPV 8.8, Gran % 47.5, Lymphocytes % 37.7, Monocytes % 12.1 H, Eosinophils % 2.2, Basophils % 0.5, Absolute Granulocytes 1.3 L, Absolute Lymphocytes 1.0 L, Absolute Monocytes 0.3, Absolute Eosinophils 0.1, Absolute Basophils 0 08/19/17 0545: Lactic Acid 0.9 08/19/17 0545: Anion Gap 10, Estimated GFR > 60, BUN/Creatinine Ratio 28.8 H, Troponin I 0.07 08/19/17 0013: Troponin I 0.01 08/19/17 0013: Lactic Acid 1.9, Phenytoin 10.3 08/18/17 2140: Lactic Acid 2.9 H 08/18/17 1950: Virus Culture Pending 08/18/17 1930: Urine Color YEL, Urine Clarity HAZY H, Urine pH 6.0, Ur Specific [place] 1.025, Urine Protein TRACE H, Urine Ketones 15 H, Urine Nitrite NEG, Urine Bilirubin NEG, Urine Urobilinogen 0.2, Ur Leukocyte Esterase SMALL H, Ur Microscopic SEDIMENT EXAMINED, Urine RBC RARE, Urine WBC 15-25 H, Ur Epithelial Cells FEW, Urine Bacteria PACKD H, Urine Hemoglobin NEG, Urine Glucose NEG 08/18/17 1831: Anion Gap 15, Estimated GFR 53 L, BUN/Creatinine Ratio 31.0 H, Glucose 169 H, Lactic Acid 4.2 H, Calcium 9.3, Total Bilirubin 0.4, Direct Bilirubin 0.4, AST 37 H, ALT 44, Alkaline Phosphatase 64, Troponin I < 0.01, Jzp-U-Kyzpzvardbt Pept 3590 H, Total Protein 6.8, Albumin 3.8, CBC w Diff NO MAN DIFF REQ, RBC 3.61 L, MCV 94.3, MCH 31.1 H, MCHC 33.0, RDW 14.8 H, MPV 9.1, Gran % 57.6, Lymphocytes % 29.9, Monocytes % 10.2 H, Eosinophils % 1.7, Basophils % 0.6, Absolute Granulocytes 1.8, Absolute Lymphocytes 0.9 L, Absolute Monocytes 0.3, Absolute Eosinophils 0.1, Absolute Basophils 0 Microbiology 08/18 1944 NASOPHARYN: Influenza Virus A & B Rapid Smear - COMP INFLUENZA TYPE A 08/18 1929 URINE ROUT: Urine Culture - RES GRAM NEGATIVE RODS Vital Signs Date Time Temp Pulse Resp B/P B/P Pulse O2 O2 Flow FiO2 Mean Ox Delivery Rate 08/20 1015 80 122/50 08/20 1014 80 122/50 08/20 0937 98.5 80 20 122/50 99 08/20 0306 95 Nasal 60% Cannula 08/20 0000 Nasal 60% Cannula 08/19 2323 99.7 08/19 2234 94 Nasal 60% Cannula 08/19 2207 101.3 85 20 140/58 91 Nasal Cannula 08/19 2135 101.3 08/19 1922 93 Nasal 60% Cannula 08/19 1900 94 Nasal 60% Cannula 08/19 1816 99.6 92 26 140/80 94 08/19 1631 98.0 85 22 164/77 96 Nasal 4.0L Cannula 08/19 1503 89 28 165/77 84 Nasal Cannula 08/19 1329 Nasal 5.0L Cannula 08/19 1137 97.3 78 18 155/71 08/19 1137 97.3 78 18 155/71 08/19 1137 97.5 78 18 155/71 95 Room Air Room Air Intake & Output 08/20 1600 08/20 0800 08/20 0000 Intake Total 64 Output Total 400 600 Balance -336 -600 Intake, IV 14 Intake, Oral 50 Output, Urine 400 600 Patient 128 lb Weight Weight Bed scale Measurement Method CXR 1. Previously documented pulmonary venous congestion shows interval resolution. 2. Interval development of asymmetric diffuse airspace opacification is noted within the left hemithorax, may represent interval development of asymmetric pulmonary edema versus infection or combination thereof. 3. Trace amount of bilateral pleural effusions, new since prior study. 4. No other significant change.
[2017-08-20 13:44] VITALS: BP 84/50
[2017-08-20 14:00] VITALS: BP 106/50
[2017-08-20 22:11] VITALS: BP 118/58
--- NOTE | 2017-08-21 06:18 | CT SCAN REPORT ---
EXAMINATION: CT CHEST WITHOUT CONTRAST CLINICAL INFORMATION: Cough, fever, fatigue. COMPARISON: Multiple prior exams are reviewed. The most recent is from the same day. TECHNIQUE: Contiguous axial thin section helical images of the chest were performed without contrast. The data set was reformatted in the coronal and sagittal planes and reviewed on an independent workstation. DLP: 185 mGy-cm. FINDINGS: The heart is of increased size, though stable. There is no pericardial effusion. There is neither mediastinal, hilar nor axillary lymphadenopathy. There are no chest wall masses. Review of lung windows demonstrates that there are bilateral pleural effusions, [id number] on the left and small on the right with associated bibasilar airspace disease. There is groundglass opacification within the left upper lobe. There are no pneumothoraces. Images of the upper abdomen demonstrate that the liver is of normal size and attenuation without focal lesions. Normal adrenal glands are identified. Bone windows: Neither sclerotic nor lytic bone lesions are identified. IMPRESSION: Left greater than right bilateral pleural effusions. Streaky groundglass opacification within the left upper lobe. This is nonspecific, though pneumonia is favored. Recommendation is for a followup chest series to be obtained following treatment and/or resolution of symptoms to assure resolution of this appearance.
--- NOTE | 2017-08-21 07:56 | PN- Housestaff ---
Subjective Follow-up For: Acute hypoxemic respiratory failure Acute influenza type A Acute diastolic congestive heart failure Peptic acidosis Neutropenia Complaints: no complaints Subjective: Patient is Uzbek speaking. She remained afebrile overnight. No episodes of tachycardia overnight. No tachypnea. Systolic blood pressure improved from 84 to 120s morning and diastolic in 60s. Oxygen saturation is also improved and she is currently on 4 L nasal cannula. She did not offer any acute complaints this morning and was comfortably lying in the bed having her breakfast. Review of Systems Constitutional: Denies: chills, fever. EENTM: Denies: visual changes. Cardiovascular: Denies: chest pain, palpitations. Respiratory: Reports: short of breath. Gastrointestinal: Denies: abdominal pain, nausea, vomiting. Musculoskeletal: Denies: joint pain. Skin: Denies: no symptoms. Objective Last 24 Hrs of Vital Signs/I&O Vital Signs Date Time Temp Pulse Resp B/P B/P Pulse O2 O2 Flow FiO2 Mean Ox Delivery Rate 08/21 0932 75 120/60 08/21 0825 95 Nasal 4.0L Cannula 08/21 0800 93 Nasal 4.0L Cannula 08/21 0032 93 Nasal 35% Cannula 08/20 2211 98.6 71 20 118/58 92 08/20 2201 96 Nasal 35% Cannula 08/20 2127 93 Nasal 35% Cannula 08/20 1955 97 Nasal 45% Cannula 08/20 1648 98 Nasal 45% Cannula 08/20 1600 97 Nasal 45% Cannula 08/20 1400 97.9 73 20 106/50 95 08/20 1344 98.1 84/50 08/20 1344 98 Nasal 45% Cannula 08/20 1140 98 Nasal 50% Cannula Intake & Output 08/21 1600 08/21 0800 08/21 0000 Intake Total 50 730 Output Total 200 125 Balance -150 605 Intake, IV 250 Intake, Oral 50 480 Number 0 Bowel Movements Output, Urine 200 125 Patient 125 lb Weight Physical Exam General Appearance: Alert, Oriented X3, Cooperative, No Acute Distress Skin: No Rashes HEENT: Atraumatic, PERRLA Neck: No JVD Cardiovascular: Regular Rate, Normal S1, Normal S2 Lungs: DECREASED AIR ENTRY BILATERAL LUNG BASES, LEFT UPPER LOBE RALES Abdomen: Normal Bowel Sounds, Soft, No Tenderness Neurological: Normal Speech, Normal Tone, Sensation Intact Extremities: No Edema Current Medications: Current Medications Sig/Ellen Start time Last Medication Dose Route Stop Time Status Admin Acetaminophen 650 MG .STK-MED ONE 08/20 1132 DC PO 08/20 1133 Acetaminophen 650 MG Q6P PRN 08/18 2300 AC 08/20 PO 1203 Albuterol Sulfate 3 ML Q4H PRN 08/19 1400 AC INH Ascorbic Acid 500 MG DAILY 08/19 1000 AC 08/21 PO 0931 Aspirin Buffered 162 MG DAILY 08/19 1000 AC 08/21 PO 0932 Atorvastatin Calcium 40 MG 1700 08/19 1700 AC 08/20 PO 1840 Azithromycin 500 MG DAILY 08/21 1000 AC 08/21 Dextrose/Water 250 ML IV 0934 Calcium 600 MG BID 08/19 1000 AC 08/21 PO 0931 Ceftriaxone Sodium 1,000 MG DAILY 08/21 1000 AC 08/21 IV 0934 Cholecalciferol 1,000 IU DAILY 08/19 1000 AC 08/21 PO 0931 Cilostazol 50 MG BID 08/19 1000 AC 08/21 PO 0934 Cyanocobalamin 1,000 MCG DAILY 08/19 1000 AC 08/21 PO 0930 Enoxaparin Sodium 40 MG DAILY 08/19 1000 AC 08/21 SC 0931 Folic Acid 1 MG DAILY 08/19 1000 AC 08/21 PO 0934 Gabapentin 100 MG AT BEDTIME 08/19 2200 AC 08/20 PO 2055 Guaifenesin 10 ML Q6P PRN 08/19 1730 AC PO Guaifenesin 10 ML Q6P PRN 08/18 2345 AC 08/19 PO 0120 Insulin Aspart 0 TIDAC 08/18 2315 AC 08/20 SC 1840 Losartan Potassium 25 MG DAILY 08/19 1000 DC 08/20 PO 1014 Magnesium Oxide 400 MG DAILY 08/19 1000 AC 08/21 PO 0932 Melatonin 5 MG QPM 08/19 2200 AC 08/20 PO 2055 Multivitamins 1 TAB DAILY 08/19 1000 AC 08/21 Therapeutic PO 0931 Nadolol 40 MG DAILY 08/19 1000 AC 08/21 PO 0932 Oseltamivir Phosphate 30 MG BID 08/18 2200 AC 08/21 PO 08/22 2159 0934 Phenytoin 100 MG TID 08/18 2309 AC 08/21 PO 0935 Risperidone 0.5 MG BID 08/18 2310 AC 08/21 PO 0931 Sertraline HCl 50 MG DAILY 08/19 1000 AC 08/21 PO 0931 Vancomycin HCl 1,000 MG ONCE ONE 08/20 1445 DC 08/20 Dextrose/Water 250 ML IV 08/20 1544 1841 Last 24 Hrs of Lab/Tobias Results Last 24 Hrs of Labs/Mics: Microbiology 08/20 2042 LOWER RESP: Respiratory Culture - RES 08/20 2042 LOWER RESP: Gram Stain - RES 08/20 1899 URINE ROUT: Legionella Antigen - COMP 08/20 1899 URINE ROUT: Streptococcus pneumoniae Antigen (M - COMP Lines/Diet/Fluids Lines: peripheral lines Restraints: none Assessment/Plan Assessment: 82 year old female with extensive past medical history of CAD S/P CABG (1997), S /P NM (2003) repeat cardiac cath showed extensive CAD, S/P stent (2003) , HFpEF , HTN, HLD, DM, seizure disorder, PVD, subdural hematoma, chronic incontinence, bilateral hip replacement, history of cholecystectomy currently admitted for lethargy and weakness for the last 3 days and decreased by mouth intake. Patient is currently being managed for the following problems Acute hypoxemic respiratory failure Patient's oxygen requirement increased in emergency department after IV fluids. Chest x-ray showed Mild cardiomegaly and mild prominence of the pulmonary vasculature suggesting mild volume overload. Patient was admitted on telemetry floor and her oxygen requirements kept increasing. She also has history of diastolic heart failure. Her symptom could be multifactorial secondary to positive flu and possibly acute diastolic heart failure secondary to volume overload. She developed low-grade temperature spikes during admission which raised concern of post flu pneumonia. Patient was given 1 dose of vancomycin yesterday. She was started on ceftriaxone and azithromycin. CT chest was also obtained that showed Left greater than right bilateral pleural effusions. Streaky groundglass opacification within the left upper lobe. Chest x-ray also showed resolution of pulmonary vascular congestion and interval development of asymmetric diffuse airspace opacification. Overall after starting antibiotics patient has clinically improved and her oxygen requirement has decreased. Hypotension has also resolved. We will continue Tamiflu and Continue to taper oxygen as needed Severe sepsis secondary to community-acquired pneumonia-Improving Patient met the criteria of severe sepsis 2 days ago with temperature spike of 101.3, tachycardia heart rate 92, tachypnea respiratory rate 26, white count less than 4, suspected source of infection in the lungs and lactic acidosis. Patient did receive IV hydration her admission but later on fluids were held because of acute diastolic heart failure. Lactic acidosis resolved after IV hydration. Patient is currently on broad-spectrum antibiotics. Patient remained afebrile overnight and blood pressure has improved. History of [id number] diabetes mellitus We will hold home medication glimepiride and Januvia Accu-Cheks Continue with Insulin sliding scale, consider adding long-acting insulin Patient is currently Diabetic diet Lactic acidosis Likely secondary to poor perfusion type A Lactic acidosis resolved with IV hydration UTI Patient had episodes of low-grade temperature spikes. Difficult to elicit symptoms of urinary tract infection because of language barrier. Urine culture grew Escherichia coli which is pansensitive. She is currently covered by recent antibiotics. History of CAD, PAD, HTN, HDL, insomnia, peripheral neuropathy, seizure, and mental health We will continued her home medications including, aspirin 162 daily, Cilastazol 50 twice daily nadolol 40,lovastatin 40 daily, melatonin 5 mg, risperidone 0.5 twice daily , sertraline 50 at bed time gabapentin 100 at bedtime, and phenytoin 100TID, (level on admission was 10.3) losartan 25 daily, held for hypotension CODE STATUS Patient is currently Full code DVT prophylaxis -DVT prophylaxis subcutaneous Lovenox Patient is currently on diabetic diet Problem List: 1. Influenza A Pain Ratin Pain Location: BACK Pain Goal: Pain 4 or less Pain Plan: No current change Tomorrow's Labs & Rationales: CBC follow-up for leukopenia and anemia DVT/Prophylaxis: pharmacological
--- NOTE | 2017-08-21 09:28 | PN- Cardiology ---
Subjective Subjective: The patient has no complaints today. She is on nasal oxygen at 4 L and saturating well. Her chest x-ray and CT show infiltrate in the left lung. There have been no arrhythmias. Her enzymes were all negative. Objective Vital Signs and I&Os Vital Signs Date Time Temp Pulse Resp B/P B/P Pulse O2 O2 Flow FiO2 Mean Ox Delivery Rate 08/21 0825 95 Nasal 4.0L Cannula 08/21 0032 93 Nasal 35% Cannula 08/20 2210 98.6 71 20 118/58 92 08/20 2200 96 Nasal 35% Cannula 08/207 93 Nasal 35% Cannula 08/20 1955 97 Nasal 45% Cannula 08/20 1648 98 Nasal 45% Cannula 08/20 1600 97 Nasal 45% Cannula 08/20 1400 97.9 73 20 106/50 95 08/20 1344 98.1 84/50 08/20 1344 98 Nasal 45% Cannula 08/20 1140 98 Nasal 50% Cannula 08/20 1015 80 122/50 08/20 1014 80 122/50 08/20 0937 98.5 80 20 122/50 99 Intake & Output 08/21 1600 08/21 0800 08/21 0000 08/20 1600 08/20 0800 08/20 0000 Intake Total 50 730 300 64 Output Total 200 125 200 400 600 Balance -150 605 100 -336 -600 Intake, IV 250 14 Intake, Oral 50 480 300 50 Number 0 2 Bowel Movements Output, Urine 200 125 200 400 600 Patient 125 lb 128 lb Weight Weight Bed scale Measurement Method Physical Exam: She is in no distress HEENT exam normal Chest coarse rales left greater than right Heart regular rhythm no murmurs Extremities no edema Current Medications: Current Medications Sig/Ellen Start time Last Medication Dose Route Stop Time Status Admin Acetaminophen 650 MG .STK-MED ONE 08/20 1132 DC PO 08/20 1133 Acetaminophen 650 MG Q6P PRN 08/18 2300 AC 08/20 PO 1203 Albuterol Sulfate 3 ML Q4H PRN 08/19 1400 AC INH Ascorbic Acid 500 MG DAILY 08/19 1000 AC 08/20 PO 1018 Aspirin Buffered 162 MG DAILY 08/19 1000 AC 08/20 PO 1014 Atorvastatin Calcium 40 MG 1700 08/19 1700 AC 08/20 PO 1840 Azithromycin 500 MG DAILY 08/21 1000 AC Dextrose/Water 250 ML IV Calcium 600 MG BID 08/19 1000 AC 08/20 PO 2054 Ceftriaxone Sodium 1,000 MG DAILY 08/21 1000 AC IV Cholecalciferol 1,000 IU DAILY 08/19 1000 AC 08/20 PO 1018 Cilostazol 50 MG BID 08/19 1000 AC 08/20 PO 2054 Cyanocobalamin 1,000 MCG DAILY 08/19 1000 AC 08/20 PO 1018 Enoxaparin Sodium 40 MG DAILY 08/19 1000 AC 08/20 SC 1013 Folic Acid 1 MG DAILY 08/19 1000 AC 08/20 PO 1014 Furosemide 40 MG 0930 08/20 0930 DC 08/20 IV 08/20 0931 1201 Gabapentin 100 MG AT BEDTIME 08/19 2200 AC 08/20 PO 2054 Guaifenesin 10 ML Q6P PRN 08/19 1730 AC PO Guaifenesin 10 ML Q6P PRN 08/18 2345 AC 08/19 PO 0120 Insulin Aspart 0 TIDAC 08/18 2315 AC 08/20 SC 1840 Losartan Potassium 25 MG DAILY 08/19 1000 DC 08/20 PO 1014 Magnesium Oxide 400 MG DAILY 08/19 1000 AC 08/20 PO 1014 Melatonin 5 MG QPM 08/190 AC 08/20 PO 2054 Multivitamins 1 TAB DAILY 08/19 1000 AC 08/20 Therapeutic PO 1018 Nadolol 40 MG DAILY 08/19 1000 AC 08/20 PO 1015 Oseltamivir Phosphate 30 MG BID 08/18 2200 AC 08/20 PO 08/22 Phenytoin 100 MG TID 08/18 2309 AC 08/20 PO 2054 Risperidone 0.5 MG BID 08/18 2310 AC 08/20 PO 2054 Sertraline HCl 50 MG DAILY 08/19 1000 AC 08/20 PO 1018 Vancomycin HCl 1,000 MG ONCE ONE 08/20 1445 DC 08/20 Dextrose/Water 250 ML IV 08/20 1544 1841 Results Last 48 Hrs of Labs/Mics: Laboratory Tests 08/20/17 0610: CBC w Diff NO MAN DIFF REQ, RBC 3.57 L, MCV 94.6, MCH 31.6 H, MCHC 33.5, RDW 15.0 H, MPV 10.3, Gran % 71.7, Lymphocytes % 22.4, Monocytes % 5.5, Eosinophils % 0.1, Basophils % 0.3, Absolute Granulocytes 4.0, Absolute Lymphocytes 1.3, Absolute Monocytes 0.3, Absolute Eosinophils 0, Absolute Basophils 0 08/19/17 1915: D-Dimer High Sensitivty 626 H 08/19/17 1724: pH 7.42, pCO2 33 L, pO2 63 L, HCO3 21.3, ABG O2 Sat (Measured) 92.0 L, Carboxyhemoglobin 0.3 L, O2 Concentration % 5L, O2 Delivery Method NC, Phlebotomy Draw Site RIGHT RADIAL Microbiology 08/20 1899 URINE ROUT: Legionella Antigen - COMP 08/20 1899 URINE ROUT: Streptococcus pneumoniae Antigen (M - COMP Recent Imaging Studies: PATIENT: ED SPARROW PRESENT AGE: 82 PATIENT ACCOUNT NO: [id number] : 34 LOCATION: [facility] ORDERING PHYSICIAN: Artemio Drake MD SERVICE DATE: 08/20/17- EXAM TYPE: RAD - XRY-PORTABLE CHEST XRAY EXAMINATION: XR PORTABLE CHEST CLINICAL INFORMATION: Cough, fever. History of CHF. COMPARISON: Chest done on 08/18/2017. TECHNIQUE: Portable frontal view of the chest was obtained. FINDINGS: Interval development of asymmetric diffuse airspace opacities noted within the entire left hemithorax, may represent asymmetric pulmonary edema versus infection or combination thereof. Previously documented pulmonary venous congestion on the right side shows near-complete resolution. Subtle airspace opacifications are noted at both lung bases, unchanged. There is likely a trace amount of bilateral pleural effusions present, new since prior study. The cardiomediastinal silhouette is mildly enlarged, unchanged. Postop changes of sternotomy and CABG is present. IMPRESSION: 1. Previously documented pulmonary venous congestion shows interval resolution. 2. Interval development of asymmetric diffuse airspace opacification is noted within the left hemithorax, may represent interval development of asymmetric pulmonary edema versus infection or combination thereof. 3. Trace amount of bilateral pleural effusions, new since prior study. 4. No other significant change. DICTATED BY: Rodney Santos MD DATE/TIME DICTATED:08/20/171056 FAMILY PRACTICE MD:ALEX DATE/TIME TRANSCRIBED:08/20/171056 CONFIDENTIAL, DO NOT COPY WITHOUT APPROPRIATE AUTHORIZATION. <Electronically signed in Other Vendor System> SIGNED BY: Rodney Santos MD 08/20/17 1118 Assessment/Plan Assessment/Plan The patient is stable from a cardiac standpoint. Her main issue appears to be respiratory at this time with probable left-sided pneumonia, ?Influenza pneumonia. Telemetry can be discontinued and concentrate on respiratory status at this point. Please call for further cardiology input. Continue telemetry? No
--- NOTE | 2017-08-21 11:32 | PN- Att Addend ---
Attending Addendum Attending Brief Note Patient seen and examined. Plan of care discussed with the medical team and the patient. Available lab work and radiology test reports were reviewed. Patient is awake but lethargic. She mostly speaks Frisian but able to answer simple questions. denies any chest pain. He is currently on 4 L of oxygen by nasal cannula. Exam: General: Patient awake but lethargic and oriented without any distress; CVS: S1 plus S2 without any murmur or gallops Chest: Few scattered crepitation with scattered wheeze. There is no respiratory distress. Abdomen: Soft non-tender, bowel sound present, no guarding or rebound CRT: Awake alert oriented without any focal neuro deficit and follows commands appropriately Extremities: No edema; no clubbing or cyanosis noted Assessment * Acute Influenza type A with suspected left-sided pneumonia * Suspected committee for pneumonia secondary to influenza or bacterial- interestingly patient does not have white cell count elevation or left shift or fever however CT findings suggestive of pneumonia; * Suspected sepsis given hyportension and elevated lactic acid in setting of pneumonia * Hypoxia- could be related to bronchitis or overload of fluid after receiving normal saline in the emergency room * Acute diastolic CHF exacerbated by normal saline * History of diabetes * Lactic acidosis- resolved * Neutropenia * History of seizure disorder- patient currently on phenytoin level of 10.3 on admission * Elevated d-dimer- no suspicion of pulmonary embolism based on exam and laboratory workup otherwise. Note the patient was in room air and she arrived to ED. Plan * Continue Tamiflu * Continue ceftriaxone and azithromycin * Repeat Lasix IV dose 40 mg 1 today and then stopped * Continue to monitor input output and daily weights * Monitor oxygen and taper oxygen as tolerated * Continue other medications Current Medications Sig/Ellen Start time Last Medication Dose Route Stop Time Status Admin Acetaminophen 650 MG .STK-MED ONE 08/20 1132 DC PO 08/20 1133 Acetaminophen 650 MG Q6P PRN 08/18 2300 AC 08/20 PO 1203 Albuterol Sulfate 3 ML Q4H PRN 08/19 1400 AC INH Ascorbic Acid 500 MG DAILY 08/19 1000 AC 08/21 PO 0931 Aspirin Buffered 162 MG DAILY 08/19 1000 AC 08/21 PO 0932 Atorvastatin Calcium 40 MG 1700 08/19 1700 AC 08/20 PO 1840 Azithromycin 500 MG DAILY 08/21 1000 AC 08/21 Dextrose/Water 250 ML IV 0934 Calcium 600 MG BID 08/19 1000 AC 08/21 PO 0931 Ceftriaxone Sodium 1,000 MG DAILY 08/21 1000 AC 08/21 IV 0934 Cholecalciferol 1,000 IU DAILY 08/19 1000 AC 08/21 PO 0931 Cilostazol 50 MG BID 08/19 1000 AC 08/21 PO 0934 Cyanocobalamin 1,000 MCG DAILY 08/19 1000 AC 08/21 PO 0930 Enoxaparin Sodium 40 MG DAILY 08/19 1000 AC 08/21 SC 0931 Folic Acid 1 MG DAILY 08/19 1000 AC 08/21 PO 0934 Gabapentin 100 MG AT BEDTIME 08/19 2200 AC 08/20 PO 2055 Guaifenesin 10 ML Q6P PRN 08/19 1730 AC PO Guaifenesin 10 ML Q6P PRN 08/18 2345 AC 08/19 PO 0120 Insulin Aspart 0 TIDAC 08/18 2315 AC 08/20 SC 1840 Losartan Potassium 25 MG DAILY 08/19 1000 DC 08/20 PO 1014 Magnesium Oxide 400 MG DAILY 08/19 1000 AC 08/21 PO 0932 Melatonin 5 MG QPM 08/19 2200 AC 08/20 PO 2055 Multivitamins 1 TAB DAILY 08/19 1000 AC 08/21 Therapeutic PO 0931 Nadolol 40 MG DAILY 08/19 1000 AC 08/21 PO 0932 Oseltamivir Phosphate 30 MG BID 08/180 AC 08/21 PO 08/22 2159 0934 Phenytoin 100 MG TID 08/18 2309 AC 08/21 PO 0935 Risperidone 0.5 MG BID 08/18 2310 AC 08/21 PO 0931 Sertraline HCl 50 MG DAILY 08/19 1000 AC 08/21 PO 0931 Vancomycin HCl 1,000 MG ONCE ONE 08/20 1445 DC 08/20 Dextrose/Water 250 ML IV 08/20 1544 1841 Laboratory Tests 08/20/17 0610: CBC w Diff NO MAN DIFF REQ, RBC 3.57 L, MCV 94.6, MCH 31.6 H, MCHC 33.5, RDW 15.0 H, MPV 10.3, Gran % 71.7, Lymphocytes % 22.4, Monocytes % 5.5, Eosinophils % 0.1, Basophils % 0.3, Absolute Granulocytes 4.0, Absolute Lymphocytes 1.3, Absolute Monocytes 0.3, Absolute Eosinophils 0, Absolute Basophils 0 08/19/17 1915: D-Dimer High Sensitivty 626 H 08/19/17 1724: pH 7.42, pCO2 33 L, pO2 63 L, HCO3 21.3, ABG O2 Sat (Measured) 92.0 L, Carboxyhemoglobin 0.3 L, O2 Concentration % 5L, O2 Delivery Method NC, Phlebotomy Draw Site RIGHT RADIAL 08/19/17 0615: CBC w Diff NO MAN DIFF REQ, RBC 3.38 L, MCV 94.7, MCH 31.0, MCHC 32.7 L, RDW 15.3 H, MPV 8.8, Gran % 47.5, Lymphocytes % 37.7, Monocytes % 12.1 H, Eosinophils % 2.2, Basophils % 0.5, Absolute Granulocytes 1.3 L, Absolute Lymphocytes 1.0 L, Absolute Monocytes 0.3, Absolute Eosinophils 0.1, Absolute Basophils 0 08/19/17 0545: Lactic Acid 0.9 08/19/17 0545: Anion Gap 10, Estimated GFR > 60, BUN/Creatinine Ratio 28.8 H, Troponin I 0.07 08/19/17 0013: Troponin I 0.01 08/19/17 0013: Lactic Acid 1.9, Phenytoin 10.3 08/18/17 2140: Lactic Acid 2.9 H 08/18/17 1950: Virus Culture Pending 08/18/17 1930: Urine Color YEL, Urine Clarity HAZY H, Urine pH 6.0, Ur Specific [place] 1.025, Urine Protein TRACE H, Urine Ketones 15 H, Urine Nitrite NEG, Urine Bilirubin NEG, Urine Urobilinogen 0.2, Ur Leukocyte Esterase SMALL H, Ur Microscopic SEDIMENT EXAMINED, Urine RBC RARE, Urine WBC 15-25 H, Ur Epithelial Cells FEW, Urine Bacteria PACKD H, Urine Hemoglobin NEG, Urine Glucose NEG 08/18/17 1831: Anion Gap 15, Estimated GFR 53 L, BUN/Creatinine Ratio 31.0 H, Glucose 169 H, Lactic Acid 4.2 H, Calcium 9.3, Total Bilirubin 0.4, Direct Bilirubin 0.4, AST 37 H, ALT 44, Alkaline Phosphatase 64, Troponin I < 0.01, Sru-V-Ndwrwsnaxbc Pept 3590 H, Total Protein 6.8, Albumin 3.8, CBC w Diff NO MAN DIFF REQ, RBC 3.61 L, MCV 94.3, MCH 31.1 H, MCHC 33.0, RDW 14.8 H, MPV 9.1, Gran % 57.6, Lymphocytes % 29.9, Monocytes % 10.2 H, Eosinophils % 1.7, Basophils % 0.6, Absolute Granulocytes 1.8, Absolute Lymphocytes 0.9 L, Absolute Monocytes 0.3, Absolute Eosinophils 0.1, Absolute Basophils 0 Microbiology 08/20 2042 LOWER RESP: Respiratory Culture - RES 08/20 2042 LOWER RESP: Gram Stain - RES 08/20 1899 URINE ROUT: Legionella Antigen - COMP 08/20 1899 URINE ROUT: Streptococcus pneumoniae Antigen (M - COMP 08/18 1944 NASOPHARYN: Influenza Virus A & B Rapid Smear - COMP INFLUENZA TYPE A 08/18 1929 URINE ROUT: Urine Culture - COMP ESCHERICHIA COLI Vital Signs Date Time Temp Pulse Resp B/P B/P Pulse O2 O2 Flow FiO2 Mean Ox Delivery Rate 08/21 0932 75 120/60 08/21 0825 95 Nasal 4.0L Cannula 08/21 0800 93 Nasal 4.0L Cannula 08/21 0032 93 Nasal 35% Cannula 08/20 2211 98.6 71 20 118/58 92 08/20 220 96 Nasal 35% Cannula 08/207 93 Nasal 35% Cannula 08/20 1955 97 Nasal 45% Cannula 08/20 1648 98 Nasal 45% Cannula 08/20 1600 97 Nasal 45% Cannula 08/20 1400 97.9 73 20 106/50 95 08/20 1344 98.1 84/50 08/20 1344 98 Nasal 45% Cannula 08/20 1140 98 Nasal 50% Cannula Intake & Output 08/21 1600 08/21 0800 08/21 0000 Intake Total 50 730 Output Total 200 125 Balance -150 605 Intake, IV 250 Intake, Oral 50 480 Number 0 Bowel Movements Output, Urine 200 125 Patient 125 lb Weight
[2017-08-21 14:30] VITALS: BP 140/58
--- NOTE | 2017-08-21 14:37 | Patient Discharge Instructions ---
Discharge Instructions General Discharge Information You were seen/treated for: Acute hypoxemic respiratory failure Acute influenza type A Acute diastolic congestive heart failure Peptic acidosis Neutropenia Special Instructions: Follow-up with cardiology after discharge Follow-up with primary care doctor after discharge Diet Continue normal diet: Yes Recommended Diet: Diabetic Activity Full Activity/No Limits: Yes Additional ACTIVITY Info: As tolerated Acute Coronary Syndrome Inclusion Criteria At DC or during hospital stay patient has or had the following: ACS DIAGNOSIS No Discharge Core Measures Meds if any: Prescribed or Continued at Discharge Meds if any: NOT Prescribed or Continued at Discharge Congestive Heart Failure Inclusion Criteria At DC or during hospital stay patient has or had the following: CHF DIAGNOSIS Yes Discharge Core Measures Meds if any: Prescribed or Continued at Discharge DUTCH/ARB for EF <40% Yes Meds if any: NOT Prescribed or Continued at Discharge Cerebrovascular accident Inclusion Criteria At DC or during hospital stay patient has or had the following: CVA/TIA Diagnosis No Discharge Core Measures Meds if any: Prescribed or Continued at Discharge Meds if any: NOT Prescribed or Continued at Discharge Venous thromboembolism Inclusion Criteria VTE Diagnosis No VTE Type NONE VTE Confirmed by (Test) NONE Discharge Core Measures - Per Current guidelines, there needs to be overlap - treatment for the first 5 days of Warfarin therapy. - If discharged on Warfarin prior to 5 days of - overlap therapy, the patient will need to be - assessed for post discharge needs including - *Post discharge parental anticoagulation - *Warfarin and/or parental anticoagulation education - *Follow up date to check INR post discharge At least 5 days overlap therapy as Inpatient No Meds if any: Prescribed or Continued at Discharge Note: Overlap Therapy is Warfarin and Anticoagulant Meds if any: NOT Prescribed or Continued at Discharge
--- NOTE | 2017-08-21 15:33 | Discharge Summary ---
Visit Information Visit Dates Admission Date: 08/18/17 Discharge Date: 08/27/17 Hospital Course Course Attending Physician: Kanwal VIDAL,Vicky Primary Care Physician: Norma Plascencia MD Consulting Request: Consulting Specialty: Cardiology Hospital Course: 82 year old female with extensive past medical history of CAD S/P CABG (1997), S /P AR (2003) repeat cardiac cath showed extensive CAD, S/P stent (2003) , HFpEF , HTN, HLD, DM, seizure disorder, PVD, subdural hematoma, chronic incontinence, bilateral hip replacement, history of cholecystectomy currently admitted for lethargy and weakness for the last 3 days and decreased by mouth intake. Acute hypoxemic respiratory failure Patient's oxygen requirement increased in emergency department after IV fluids. Chest x-ray showed Mild cardiomegaly and mild prominence of the pulmonary vasculature suggesting mild volume overload. Patient was admitted on telemetry floor and her oxygen requirements kept increasing. She also has history of diastolic heart failure. Her symptom could be multifactorial secondary to positive flu and possibly acute diastolic heart failure secondary to volume overload. She developed low-grade temperature spikes during admission which raised concern of post flu pneumonia. Patient was given 1 dose of vancomycin. She was started on ceftriaxone and azithromycin. CT chest was also obtained that showed Left greater than right bilateral pleural effusions. Streaky groundglass opacification within the left upper lobe. Chest x-ray also showed resolution of pulmonary vascular congestion and interval development of asymmetric diffuse airspace opacification. Overall after starting antibiotics patient has clinically improved and her oxygen requirement has decreased. Hypotension has also resolved. We continued Tamiflu and tapered oxygen as needed. On discharge she was switched to Augmentin 875mg q12 and finished her course in the hospital. Severe sepsis secondary to community-acquired pneumonia-Improving Patient met the criteria of severe sepsis with temperature spike of 101.3, tachycardia heart rate 92, tachypnea respiratory rate 26, white count less than 4, suspected source of infection in the lungs and lactic acidosis. Patient received IV hydration on admission but later on fluids were held because of acute diastolic heart failure secondary to volume overload. Lactic acidosis resolved after IV hydration. Patient was started on broad-spectrum antibiotics. Acute delirium Patient had an acute change in mental status after she was transferred from telemetry to [facility] floor. Recent blood work does not show any signs of infection. No significant electrolyte abnormality. Patient had a bowel movement. Patient was given 1 dose of 5 mg IM Haldol and placed on [place]. Currently she is not delirious, not requiring any restrains or safety monitor. History of jam-xypqcde-nzgdibnxn diabetes mellitus We held home medication glimepiride and Januvia. Did Accu-Cheks. We continued with Insulin sliding scale. Lactic acidosis It was secondary to poor perfusion type A Lactic acidosis Resolved with IV hydration UTI Patient had episodes of low-grade temperature spikes. It was difficult to elicit symptoms of urinary tract infection because of language barrier. Urine culture grew Escherichia coli which was pansensitive. She was covered by antibiotics for CAP. History of CAD, PAD, HTN, HDL, insomnia, peripheral neuropathy, seizure, and mental health We continued her home medications including, aspirin 162 daily, Cilastazol 50 twice daily nadolol 40,lovastatin 40 daily, melatonin 5 mg, risperidone 0.5 twice daily , sertraline 50 at bed time gabapentin 100 at bedtime, and phenytoin 100TID, (level on admission was 10.3) and losartan 25 daily(temporarily held for hypotension). CODE STATUS Patient was Full code DVT prophylaxis DVT prophylaxis was done with subcutaneous Lovenox Pateint went to [place] after hospital discharge. Allergies: Coded Allergies: meclizine (Severe, UNKNOWN 08/20/17) Disposition Summary Disposition Principal Diagnosis: Acute hypoxemic respiratory failure secondary to multifactorial etiology Acute on chronic diastolic heart failure Severe sepsis secondary to community acquired pneumonia Lactic acidosis Additional Diagnosis: History of mny-zgvduzy-ukrysfqjr diabetes mellitus History of CAD, PAD, HTN, HDL, insomnia, peripheral neuropathy, seizure Discharge Disposition: SNF Discharge Instructions General Discharge Information Code Status: Full Code Patient's Diet: Diabetic diet Patient's Activity: As tolerated, fall precautions Follow-Up Instructions/Appts: Follow-up with cardiology after discharge Follow-up with primary care doctor after discharge Medications at Discharge Discharge Medications: Continue taking these medications: Sertraline HCl (Sertraline HCl) 50 MG TABLET 1 Tablet ORAL DAILY Comments: Last Taken: 08/26/17 Time: 11:00 AM Folic Acid (Folic Acid) 1 MG TABLET 1 Tablet ORAL DAILY Comments: Last Taken: 08/26/17 Time: 11:00 AM Cilostazol (Cilostazol) 100 MG TABLET 0.5 Tablet ORAL TWICE DAILY Comments: Last Taken: 08/26/17 Time: 9:00 PM Sitagliptin Phos/Metformin HCl (Janumet 50-1,000 MG Tablet) 50 MG-1,000 MG TABLET 1 Tablet ORAL TWICE DAILY Comments: NOT GIVEN IN HOSPITAL Phenytoin Sodium Extended (Phenytoin Sodium Extended) 100 MG CAPSULE 1 Capsule ORAL THREE TIMES DAILY Comments: Last Taken: 08/27/17 Time: 11:00 AM Aspirin (Ecotrin*) 81 MG TABLET.DR 2 Tablet ORAL DAILY Comments: Last Taken: 08/26/17 Time: 11:02 AM Lovastatin (Lovastatin) 40 MG TABLET 1 Tablet ORAL DAILY Instructions: with food Comments: Last Taken: 08/26/17 Time: 4:30 PM LIPITOR GIVEN Nadolol (Nadolol) 40 MG TABLET 1 Tablet ORAL DAILY Comments: Last Taken: 08/26/17 Time: 11:00 AM Multivitamin (Multiple Vitamins) 1 EACH TABLET 1 Tablet ORAL DAILY Comments: Last Taken: 08/26/17 Time: 11:00 AM Cyanocobalamin (Vitamin B-12) 1,000 MCG TABLET 1 Tablet ORAL DAILY Comments: Last Taken: 08/26/17 Time: 11:00 AM Magnesium Oxide (Magnesium) 500 MG CAPSULE 1 Capsule ORAL DAILY Comments: Last Taken: 08/26/17 Time: 11:00 AM Cholecalciferol (Vitamin D3) (Vitamin D3) 1,000 UNIT CAPSULE 1 Capsule ORAL DAILY Comments: Last Taken: 08/26/17 Time: 11:00 AM Calcium (Elemental-Fr Calcarb) (Calcium) 600 MG CALCIUM (1,500 MG) TABLET 1,200 Milligram ORAL DAILY Comments: Last Taken: 08/26/17 Time: 9:00 PM Hazen-3S/Dha/Epa/Fish Oil (Hazen-3 Fish Oil 1,000 MG Sfgl) 300-1,000MG CAPSULE 1 Capsule ORAL DAILY Comments: NOT GIVEN IN HOSPITAL Ascorbate Calcium (Vitamin C) 500 MG TABLET 1 Tablet ORAL DAILY Comments: Last Taken: 08/26/17 Time: 11:00 AM Melatonin (Melatonin) 5 MG TABLET 1 Tablet ORAL Every night Comments: Last Taken: 08/26/17 Time: 9:00 PM Bioflav,Lemon/Vit Bcomp,C (Lipo-Flavonoid Plus [place]) 200 MG-100 MG TABLET 1 Tablet ORAL THREE TIMES DAILY Comments: NOT GIVEN IN HOSPITAL Glimepiride (Glimepiride) 1 MG TABLET 1 Tablet ORAL DAILY Days = 90 Comments: NOT GIVEN IN HOSPITAL Losartan Potassium (Losartan Potassium) 25 MG TABLET 1 Tablet ORAL DAILY Comments: Last Taken: 08/26/17 Time: 11:02 AM Risperidone (Risperdal) 1 MG TABLET 0.5 Milligram ORAL TWICE DAILY Qty = 60 Comments: Last Taken: 08/26/17 Time: 9:00 PM Gabapentin (Gabapentin) 100 MG CAPSULE 1 Capsule ORAL AT BEDTIME Comments: Last Taken: 08/26/17 Time: 9:00 PM Start taking the following new medications: Benzonatate (Tessalon Perle) 100 MG CAPSULE 1 Capsule ORAL THREE TIMES DAILY as needed for COUGH Qty = 21 No Refills Copies To: Thais VIDAL,Norma Attending MD Review Statement Documenting Attending: Christiano Cordova MD Other Findings: The patient was seen and discussed with house staff. Agree with the plan of care as outlined. To go to [facility] today ([facility]).
[2017-08-21 23:40] VITALS: BP 132/60
[2017-08-22 06:57] VITALS: BP 154/68
--- NOTE | 2017-08-22 07:28 | PN- Housestaff ---
Subjective Follow-up For: Acute hypoxemic respiratory failure Acute influenza type A Acute diastolic congestive heart failure Peptic acidosis Neutropenia Complaints: no complaints Tele-Events Since Last Visit: Patient is off telemetry monitoring Subjective: Patient is [place] speaking. She remained afebrile overnight. No episodes of tachycardia overnight. No tachypnea. Systolic blood pressure improved and she is currently on 2 L nasal cannula. She did not offer any acute complaints this morning and was comfortably lying in the bed. Review of Systems Constitutional: Denies: chills, fever. Cardiovascular: Denies: chest pain, palpitations. Respiratory: Denies: cough, short of breath. Gastrointestinal: Denies: abdominal pain, nausea, vomiting. Genitourinary: Denies: dysuria. Musculoskeletal: Denies: back pain. Objective Last 24 Hrs of Vital Signs/I&O Vital Signs Date Time Temp Pulse Resp B/P B/P Pulse O2 O2 Flow FiO2 Mean Ox Delivery Rate 08/22 0657 97.4 68 18 154/68 94 Nasal Cannula 08/22 0000 95 Nasal 2.0L Cannula 08/21 2340 97.6 68 18 132/60 93 Nasal Cannula 08/21 1611 99 Nasal 4.0L Cannula 08/21 1600 98 Nasal 3.0L Cannula 08/21 1430 98.1 71 20 140/58 99 Nasal 4.0L Cannula 08/21 0932 75 120/60 Intake & Output 08/22 1600 08/22 0800 08/22 0000 Intake Total 100 200 Output Total 300 Balance -200 200 Intake, Oral 100 200 Number 1 Bowel Movements Output, Urine 300 Patient 120 lb Weight Physical Exam General Appearance: Alert, Oriented X3, Cooperative Skin: No Rashes HEENT: Atraumatic Neck: No JVD Cardiovascular: Regular Rate, Normal S1, Normal S2 Lungs: DECREASED AIR ENTRY BILATERAL LUNG BASES, LEFT UPPER LOBE RALES Abdomen: Normal Bowel Sounds, Soft, No Tenderness Neurological: Normal Gait, Normal Speech, Normal Tone Extremities: No Edema Current Medications: Current Medications Sig/Ellen Start time Last Medication Dose Route Stop Time Status Admin Acetaminophen 650 MG .STK-MED ONE 08/21 1648 DC PO 08/21 1649 Acetaminophen 650 MG Q6P PRN 08/18 2300 AC 08/22 PO 0749 Albuterol Sulfate 3 ML Q4H PRN 08/19 1400 AC INH Ascorbic Acid 500 MG DAILY 08/19 1000 AC 08/21 PO 0931 Aspirin Buffered 162 MG DAILY 08/19 1000 AC 08/21 PO 0932 Atorvastatin Calcium 40 MG 1700 08/19 1700 AC 08/21 PO 1649 Azithromycin 500 MG DAILY 08/21 1000 AC 08/21 Dextrose/Water 250 ML IV 0934 Calcium 600 MG BID 08/19 1000 AC 08/21 PO 2101 Ceftriaxone Sodium 1,000 MG DAILY 08/21 1000 AC 08/21 IV 0934 Cholecalciferol 1,000 IU DAILY 08/19 1000 AC 08/21 PO 0931 Cilostazol 50 MG BID 08/19 1000 AC 08/21 PO 2102 Cyanocobalamin 1,000 MCG DAILY 08/19 1000 AC 08/21 PO 0930 Enoxaparin Sodium 40 MG DAILY 08/19 1000 AC 08/21 SC 0931 Folic Acid 1 MG DAILY 08/19 1000 AC 08/21 PO 0934 Furosemide 40 MG ONCE ONE 08/21 1330 DC 08/21 IV 08/21 1331 1332 Gabapentin 100 MG AT BEDTIME 08/19 2200 AC 08/21 PO 2101 Guaifenesin 10 ML Q6P PRN 08/19 1730 AC PO Guaifenesin 10 ML Q6P PRN 08/18 2345 AC 08/19 PO 0120 Insulin Aspart 0 TIDAC 08/18 2315 AC 08/22 SC 0748 Magnesium Oxide 400 MG DAILY 08/19 1000 AC 08/21 PO 0932 Melatonin 5 MG QPM 08/19 2200 AC 08/21 PO 2101 Multivitamins 1 TAB DAILY 08/19 1000 AC 08/21 Therapeutic PO 0931 Nadolol 40 MG DAILY 08/19 1000 AC 08/21 PO 0932 Oseltamivir Phosphate 30 MG BID 08/18 2200 AC 08/21 PO 08/22 2159 2217 Phenytoin 100 MG TID 08/18 2309 AC 08/21 PO 2101 Risperidone 0.5 MG BID 08/18 2310 AC 08/21 PO 2101 Sertraline HCl 50 MG DAILY 08/19 1000 AC 08/21 PO 0931 Last 24 Hrs of Lab/Tobias Results Last 24 Hrs of Labs/Mics: Laboratory Tests 08/22/17 0730: Sodium Pending, Potassium Pending, Chloride Pending, Carbon Dioxide Pending, Anion Gap Pending, BUN Pending, Creatinine Pending, BUN/Creatinine Ratio Pending , CBC w Diff Pending, WBC Pending, RBC Pending, Hgb Pending, Hct Pending, MCV Pending, MCH Pending, MCHC Pending, RDW Pending, Plt Count Pending, MPV Pending Lines/Diet/Fluids Fluids/Infusions: none Lines: peripheral lines Restraints: none Assessment/Plan Assessment: 82 year old female with extensive past medical history of CAD S/P CABG (1997), S /P MA (2003) repeat cardiac cath showed extensive CAD, S/P stent (2003) , HFpEF , HTN, HLD, DM, seizure disorder, PVD, subdural hematoma, chronic incontinence, bilateral hip replacement, history of cholecystectomy currently admitted for lethargy and weakness for the last 3 days and decreased by mouth intake. Patient is currently being managed for the following problems Acute hypoxemic respiratory failure Patient's oxygen requirement increased in emergency department after IV fluids. Chest x-ray showed Mild cardiomegaly and mild prominence of the pulmonary vasculature suggesting mild volume overload. Patient was admitted on telemetry floor and her oxygen requirements kept increasing. She also has history of diastolic heart failure. Her symptom could be multifactorial secondary to positive flu and possibly acute diastolic heart failure secondary to volume overload. She developed low-grade temperature spikes during admission which raised concern of post flu pneumonia. Patient was given 1 dose of vancomycin yesterday. She was started on ceftriaxone and azithromycin. CT chest was also obtained that showed Left greater than right bilateral pleural effusions. Streaky groundglass opacification within the left upper lobe. Chest x-ray also showed resolution of pulmonary vascular congestion and interval development of asymmetric diffuse airspace opacification. Overall after starting antibiotics patient has clinically improved and her oxygen requirement has decreased. Hypotension has also resolved. We will continue Tamiflu and Continue to taper oxygen as needed Severe sepsis secondary to community-acquired pneumonia-Improving Patient met the criteria of severe sepsis with temperature spike of 101.3, tachycardia heart rate 92, tachypnea respiratory rate 26, white count less than 4, suspected source of infection in the lungs and lactic acidosis. Patient did receive IV hydration her admission but later on fluids were held because of acute diastolic heart failure. Lactic acidosis resolved after IV hydration. Patient is currently on broad-spectrum antibiotics. Patient remained afebrile overnight and blood pressure has improved. She does not meet the criteria for sepsis anymore. History of [id number]-yytgdprii diabetes mellitus We will hold home medication glimepiride and Januvia Accu-Cheks Continue with Insulin sliding scale, consider adding long-acting insulin Patient is currently Diabetic diet Lactic acidosis Likely secondary to poor perfusion type A Lactic acidosis resolved with IV hydration UTI Patient had episodes of low-grade temperature spikes in the past days, currently afebrile. Difficult to elicit symptoms of urinary tract infection because of language barrier. Urine culture grew Escherichia coli which is pansensitive. She is currently covered by recent antibiotics. History of CAD, PAD, HTN, HDL, insomnia, peripheral neuropathy, seizure, and mental health We will continued her home medications including, aspirin 162 daily, Cilastazol 50 twice daily nadolol 40,lovastatin 40 daily, melatonin 5 mg, risperidone 0.5 twice daily , sertraline 50 at bed time gabapentin 100 at bedtime, and phenytoin 100TID, (level on admission was 10.3) losartan 25 daily, held for hypotension, we can restart if another stable BP reading CODE STATUS Patient is currently Full code DVT prophylaxis DVT prophylaxis subcutaneous Lovenox Problem List: 1. Influenza A 2. Lactic acidosis Pain Ratin Pain Location: Back Pain Goal: Pain 4 or less Pain Plan: Consider lidocaine patch Tomorrow's Labs & Rationales: We will decide based on today's lab which are pending Consulting Request: Consulting Specialty: Cardiology
[2017-08-22 08:35] LABS: ABSOLUTE BASOPHIL COUNT 0 /CUMM (0.0-0.2); ABSOLUTE EOSINOPHIL COUNT 0.1 /CUMM (0.0-0.7); ABSOLUTE GRANULOCYTE CT 1.6 /CUMM (1.4-6.5); ABSOLUTE LYMPH COUNT 1.1 /CUMM (1.2-3.4); ABSOLUTE MONOCYTE COUNT 0.3 /CUMM (0.10-0.60); BASOPHIL % 0.4 % (0.0-2.0); GRANULOCYTE % 51.4 % (42.2-75.2); HEMATOCRIT 31.2 % (37-47); MEAN CORPUSCULAR HGB 31.5 PG (27.0-31.0); MEAN CORPUSCULAR VOLUME 92.5 FL (81.0-99.0); MEAN PLATELET VOLUME 9.9 FL (7.4-10.4); PLATELET COUNT 90 /CUMM (130-400); RBC DISTRIBUTION WIDTH 14.5 % (11.5-14.5); RED BLOOD CELL CT 3.38 /CUMM (4.20-5.40); WHITE BLOOD CELL COUNT 3.1 /CUMM (4.8-10.8)
--- NOTE | 2017-08-22 10:21 | PN- Att Addend ---
Attending Addendum Attending Brief Note Patient seen and examined. Plan of care discussed with the medical team and the patient. Available lab work and radiology test reports were reviewed. Patient is awake and more alert and is sitting in chair this morning. She denies any difficulty breathing or chest pain or fever or chills. Her oxygen requirement has decreased to 2 L per nasal cannula. Exam: General: Patient awake and oriented without any distress; CVS: S1 plus S2 without any murmur or gallops Chest: Few scattered crepitation with scattered wheeze. There is no respiratory distress. Abdomen: Soft non-tender, bowel sound present, no guarding or rebound [employer]: Awake alert oriented without any focal neuro deficit and follows commands appropriately Extremities: No edema; no clubbing or cyanosis noted Assessment * Acute Influenza type A with suspected left-sided pneumonia * Suspected community acquired pneumonia secondary to influenza or bacteria- interestingly patient does not have white cell count elevation or left shift or fever however CT findings suggestive of pneumonia; * Suspected sepsis given hyportension and elevated lactic acid in setting of pneumonia * Hypoxia- could be related to pneumonia or overload of fluid after receiving normal saline in the emergency room * Acute diastolic CHF exacerbated by normal saline, now resolved after Lasix treatment * History of diabetes * Lactic acidosis- resolved * Neutropenia * History of seizure disorder- patient currently on phenytoin level of 10.3 on admission * Elevated d-dimer- no suspicion of pulmonary embolism based on exam and laboratory workup otherwise. Note the patient was on room air when she arrived to ED. * Mild hypokalemia Plan * Continue Tamiflu to complete 5 days * Continue ceftriaxone and azithromycin * Ambulate with assistance * Monitor oxygen and taper oxygen as tolerated * Continue other medications * Replace potassium by mouth 40 mEq 1; recheck potassium tomorrow Current Medications Sig/Ellen Start time Last Medication Dose Route Stop Time Status Admin Acetaminophen 650 MG .STK-MED ONE 08/21 1648 DC PO 08/21 1649 Acetaminophen 650 MG Q6P PRN 08/18 2300 AC 08/22 PO 0749 Albuterol Sulfate 3 ML Q4H PRN 08/19 1400 AC INH Ascorbic Acid 500 MG DAILY 08/19 1000 AC 08/21 PO 0931 Aspirin Buffered 162 MG DAILY 08/19 1000 AC 08/21 PO 0932 Atorvastatin Calcium 40 MG 1700 08/19 1700 AC 08/21 PO 1649 Azithromycin 500 MG DAILY 08/21 1000 AC 08/21 Dextrose/Water 250 ML IV 0934 Calcium 600 MG BID 08/19 1000 AC 08/21 PO 2101 Ceftriaxone Sodium 1,000 MG DAILY 08/21 1000 AC 08/21 IV 0934 Cholecalciferol 1,000 IU DAILY 08/19 1000 AC 08/21 PO 0931 Cilostazol 50 MG BID 08/19 1000 AC 08/21 PO 2102 Cyanocobalamin 1,000 MCG DAILY 08/19 1000 AC 08/21 PO 0930 Enoxaparin Sodium 40 MG DAILY 08/19 1000 AC 08/21 SC 0931 Folic Acid 1 MG DAILY 08/19 1000 AC 08/21 PO 0934 Furosemide 40 MG ONCE ONE 08/21 1330 DC 08/21 IV 08/21 1331 1332 Gabapentin 100 MG AT BEDTIME 08/19 2200 AC 08/21 PO 2101 Guaifenesin 10 ML Q6P PRN 08/19 1730 AC PO Guaifenesin 10 ML Q6P PRN 08/18 2345 AC 08/19 PO 0120 Insulin Aspart 0 TIDAC 08/18 2315 AC 08/22 SC 0748 Magnesium Oxide 400 MG DAILY 08/19 1000 AC 08/21 PO 0932 Melatonin 5 MG QPM 08/19 2200 AC 08/21 PO 2101 Multivitamins 1 TAB DAILY 08/19 1000 AC 08/21 Therapeutic PO 0931 Nadolol 40 MG DAILY 08/19 1000 AC 08/21 PO 0932 Oseltamivir Phosphate 30 MG BID 08/18 2200 AC 08/21 PO 08/22 2159 2217 Phenytoin 100 MG TID 08/18 2309 AC 08/21 PO 210 Potassium Chloride 40 MEQ ONCE ONE 08/22 0930 DC PO 08/22 0931 Risperidone 0.5 MG BID 08/18 2310 AC 08/21 PO 2101 Sertraline HCl 50 MG DAILY 08/19 1000 AC 08/21 PO 0931 Laboratory Tests 08/22/17 0730: Anion Gap 13, Estimated GFR > 60, BUN/Creatinine Ratio 33.8 H, CBC w Diff NO MAN DIFF REQ, RBC 3.38 L, MCV 92.5, MCH 31.5 H, MCHC 34.0, RDW 14.5, MPV 9.9, Gran % 51.4, Lymphocytes % 36.5, Monocytes % 8.7, Eosinophils % 3.0, Basophils % 0.4, Absolute Granulocytes 1.6, Absolute Lymphocytes 1.1 L, Absolute Monocytes 0.3, Absolute Eosinophils 0.1, Absolute Basophils 0 08/20/17 0610: CBC w Diff NO MAN DIFF REQ, RBC 3.57 L, MCV 94.6, MCH 31.6 H, MCHC 33.5, RDW 15.0 H, MPV 10.3, Gran % 71.7, Lymphocytes % 22.4, Monocytes % 5.5, Eosinophils % 0.1, Basophils % 0.3, Absolute Granulocytes 4.0, Absolute Lymphocytes 1.3, Absolute Monocytes 0.3, Absolute Eosinophils 0, Absolute Basophils 0 08/19/17 1915: D-Dimer High Sensitivty 626 H 08/19/17 1724: pH 7.42, pCO2 33 L, pO2 63 L, HCO3 21.3, ABG O2 Sat (Measured) 92.0 L, Carboxyhemoglobin 0.3 L, O2 Concentration % 5L, O2 Delivery Method NC, Phlebotomy Draw Site RIGHT RADIAL Microbiology 08/20 2042 LOWER RESP: Respiratory Culture - RES 08/20 2042 LOWER RESP: Gram Stain - RES 08/20 1899 URINE ROUT: Legionella Antigen - COMP 08/20 1899 URINE ROUT: Streptococcus pneumoniae Antigen (M - COMP Vital Signs Date Time Temp Pulse Resp B/P B/P Pulse O2 O2 Flow FiO2 Mean Ox Delivery Rate 08/22 0657 97.4 68 18 154/68 94 Nasal Cannula 08/22 0000 95 Nasal 2.0L Cannula 08/21 2340 97.6 68 18 132/60 93 Nasal Cannula 08/21 1611 99 Nasal 4.0L Cannula 08/21 1600 98 Nasal 3.0L Cannula 08/21 1430 98.1 71 20 140/58 99 Nasal 4.0L Cannula Intake & Output 08/22 1600 08/22 0800 08/22 0000 Intake Total 100 200 Output Total 300 Balance -200 200 Intake, Oral 100 200 Number 1 Bowel Movements Output, Urine 300 Patient 120 lb Weight
[2017-08-22 14:52] VITALS: BP 116/56
[2017-08-22 22:33] VITALS: BP 132/64
[2017-08-23 06:00] VITALS: BP 128/70
--- NOTE | 2017-08-23 07:24 | PN- Housestaff ---
Subjective Follow-up For: Acute hypoxemic respiratory failure Acute influenza type A Acute diastolic congestive heart failure Peptic acidosis Neutropenia Complaints: no complaints Tele-Events Since Last Visit: Patient is off telemetry monitoring Subjective: Patient is [place] speaking. She remained afebrile overnight. No episodes of tachycardia overnight. No tachypnea. Systolic blood pressure improved and she is currently on RA. She did not offer any acute complaints this morning and was comfortably lying in the bed. Review of Systems Constitutional: Denies: chills, fever. EENTM: Denies: visual changes. Cardiovascular: Denies: chest pain, palpitations. Respiratory: Denies: cough, short of breath. Gastrointestinal: Denies: abdominal pain, nausea, vomiting. Genitourinary: Denies: dysuria. Objective Last 24 Hrs of Vital Signs/I&O Vital Signs Date Time Temp Pulse Resp B/P B/P Pulse O2 O2 Flow FiO2 Mean Ox Delivery Rate 08/23 06 97.8 68 18 128/70 91 08/22 2233 98.0 65 16 132/64 92 Room Air 08/22 1600 94 Room Air Room Air 08/22 1452 97.6 65 18 116/56 95 Room Air 08/22 1100 98 Nasal 2.0L Cannula 08/22 1044 65 140/56 08/22 1025 Nasal 2.0L Cannula 08/22 0800 95 Nasal 2.0L Cannula Intake & Output 08/23 0800 08/23 0000 08/22 1600 Intake Total 100 200 580 Output Total Balance 100 200 580 Intake, IV 280 Intake, Oral 100 200 300 Number 1 Bowel Movements Patient 119 lb Weight Physical Exam General Appearance: Alert, Oriented X3, Cooperative, No Acute Distress HEENT: Atraumatic Neck: No JVD Cardiovascular: Regular Rate, Normal S1, Normal S2 Lungs: Clear to Auscultation, Normal Air Movement Abdomen: Normal Bowel Sounds, Soft, No Tenderness Neurological: Normal Speech, Normal Tone, Sensation Intact Extremities: No Edema Current Medications: Current Medications Sig/Ellen Start time Last Medication Dose Route Stop Time Status Admin Acetaminophen 650 MG .STK-MED ONE 08/22 0745 DC PO 08/22 0746 Acetaminophen 650 MG Q6P PRN 08/18 2300 AC 08/22 PO 0749 Albuterol Sulfate 3 ML Q4H PRN 08/19 1400 DC INH Ascorbic Acid 500 MG DAILY 08/19 1000 AC 08/22 PO 1045 Aspirin Buffered 162 MG DAILY 08/19 1000 AC 08/22 PO 1044 Atorvastatin Calcium 40 MG 1700 08/19 1700 AC 08/22 PO 1735 Azithromycin 500 MG DAILY 08/21 1000 AC 08/22 Dextrose/Water 250 ML IV 1044 Calcium 600 MG BID 08/19 1000 AC 08/22 PO 2049 Ceftriaxone Sodium 1,000 MG DAILY 08/21 1000 AC 08/22 IV 1043 Cholecalciferol 1,000 IU DAILY 08/19 1000 AC 08/22 PO 1045 Cilostazol 50 MG BID 08/19 1000 AC 08/22 PO 2050 Cyanocobalamin 1,000 MCG DAILY 08/19 1000 AC 08/22 PO 1045 Enoxaparin Sodium 40 MG DAILY 08/19 1000 AC 08/22 SC 1044 Folic Acid 1 MG DAILY 08/19 1000 AC 08/22 PO 1044 Gabapentin 100 MG AT BEDTIME 08/19 2200 AC 08/22 PO 2049 Guaifenesin 10 ML Q6P PRN 08/19 1730 AC PO Guaifenesin 10 ML Q6P PRN 08/18 2345 AC 08/19 PO 0120 Insulin Aspart 0 TIDAC 08/18 2315 AC 08/22 SC 1735 Magnesium Oxide 400 MG DAILY 08/19 1000 AC 08/22 PO 1044 Melatonin 5 MG QPM 08/19 2200 AC 08/22 PO 204 Multivitamins 1 TAB DAILY 08/19 1000 AC 08/22 Therapeutic PO 1045 Nadolol 40 MG DAILY 08/19 1000 AC 08/22 PO 1044 Ondansetron HCl 4 MG Q8P PRN 08/22 1345 AC IV Oseltamivir Phosphate 30 MG BID 08/18 220 DC 08/22 PO 08/22 215 1045 Phenytoin 100 MG TID 08/18 2309 AC 08/22 PO 204 Potassium Chloride 40 MEQ ONCE ONE 08/22 0930 DC 08/22 PO 08/22 0931 1045 Risperidone 0.5 MG BID 08/18 2310 AC 08/22 PO 204 Sertraline HCl 50 MG DAILY 08/19 1000 AC 08/22 PO 1045 Last 24 Hrs of Lab/Tobias Results Last 24 Hrs of Labs/Mics: Laboratory Tests 08/23/17 0639: Sodium Pending, Potassium Pending, Chloride Pending, Carbon Dioxide Pending, Anion Gap Pending, BUN Pending, Creatinine Pending, BUN/Creatinine Ratio Pending Lines/Diet/Fluids Fluids/Infusions: none Lines: peripheral lines Restraints: none Assessment/Plan Assessment: 82 year old female with extensive past medical history of CAD S/P CABG (1997), S /P MD (2003) repeat cardiac cath showed extensive CAD, S/P stent (2003) , HFpEF , HTN, HLD, DM, seizure disorder, PVD, subdural hematoma, chronic incontinence, bilateral hip replacement, history of cholecystectomy currently admitted for lethargy and weakness for the last 3 days and decreased by mouth intake. Patient is currently being managed for the following problems Acute hypoxemic respiratory failure Patient's oxygen requirement increased in emergency department after IV fluids. Chest x-ray showed Mild cardiomegaly and mild prominence of the pulmonary vasculature suggesting mild volume overload. Patient was admitted on telemetry floor and her oxygen requirements kept increasing. She also has history of diastolic heart failure. Her symptom could be multifactorial secondary to positive flu and possibly acute diastolic heart failure secondary to volume overload. She developed low-grade temperature spikes during admission which raised concern of post flu pneumonia. Patient was given 1 dose of vancomycin. She was started on ceftriaxone and azithromycin. CT chest was also obtained that showed Left greater than right bilateral pleural effusions. Streaky groundglass opacification within the left upper lobe. Chest x-ray also showed resolution of pulmonary vascular congestion and interval development of asymmetric diffuse airspace opacification. Overall after starting antibiotics patient has clinically improved and her oxygen requirement has decreased. Hypotension has also resolved. We finished Tamiflu and Continue to taper oxygen as needed and she is on RA now. Severe sepsis secondary to community-acquired pneumonia-Improving Patient met the criteria of severe sepsis with temperature spike of 101.3, tachycardia heart rate 92, tachypnea respiratory rate 26, white count less than 4, suspected source of infection in the lungs and lactic acidosis. Patient did receive IV hydration her admission but later on fluids were held because of acute diastolic heart failure. Lactic acidosis resolved after IV hydration. Patient is currently on broad-spectrum antibiotics. Patient remained afebrile overnight and blood pressure has improved. She does not meet the criteria for sepsis anymore. History of [id number]-csoagouod diabetes mellitus We will hold home medication glimepiride and Januvia Accu-Cheks Continue with Insulin sliding scale, consider adding long-acting insulin Patient is currently Diabetic diet Lactic acidosis Likely secondary to poor perfusion type A Lactic acidosis resolved with IV hydration UTI Patient had episodes of low-grade temperature spikes in the past days, currently afebrile. Difficult to elicit symptoms of urinary tract infection because of language barrier. Urine culture grew Escherichia coli which is pansensitive. She is currently covered by recent antibiotics. History of CAD, PAD, HTN, HDL, insomnia, peripheral neuropathy, seizure, and mental health We will continued her home medications including, aspirin 162 daily, Cilastazol 50 twice daily nadolol 40,lovastatin 40 daily, melatonin 5 mg, risperidone 0.5 twice daily , sertraline 50 at bed time gabapentin 100 at bedtime, and phenytoin 100TID, (level on admission was 10.3) losartan 25 daily, held for hypotension transiently and restarted today. CODE STATUS Patient is currently Full code DVT prophylaxis DVT prophylaxis subcutaneous Lovenox Problem List: 1. Influenza A Pain Ratin Pain Location: NA Pain Goal: Pain 4 or less Pain Plan: Continue current pain medications Tomorrow's Labs & Rationales: Not needed DVT/Prophylaxis: pharmacological Consulting Request: Consulting Specialty: Cardiology
--- NOTE | 2017-08-23 12:34 | PN- Att Addend ---
Attending Addendum Attending Brief Note Patient seen and examined. Plan of care discussed with the medical team and the patient. Available lab work and radiology test reports were reviewed. Patient is awake and more alert and is sitting in bed this morning. She complains of being lightheaded this morning. She denies any difficulty breathing or chest pain or fever or chills. Her oxygen requirement has improved and she is currently on room air. Exam: General: Patient awake and oriented without any distress; CVS: S1 plus S2 without any murmur or gallops Chest: Few scattered crepitation with scattered wheeze. There is no respiratory distress. Abdomen: Soft non-tender, bowel sound present, no guarding or rebound CERAMIC TILER: Awake alert oriented without any focal neuro deficit and follows commands appropriately Extremities: No edema; no clubbing or cyanosis noted Assessment * Acute Influenza type A with suspected left-sided pneumonia, status post 5 days of Tamiflu * Suspected community acquired pneumonia secondary to influenza or bacteria- interestingly patient does not have white cell count elevation or left shift or fever however CT findings suggestive of pneumonia; * Suspected sepsis given hypotension and elevated lactic acid in setting of pneumonia * Hypoxia- could be related to pneumonia or overload of fluid after receiving normal saline in the emergency room- now much improved and currently on room air * Acute diastolic CHF exacerbated by normal saline, now resolved after Lasix treatment * History of diabetes * Lactic acidosis- resolved * Neutropenia * History of seizure disorder- patient currently on phenytoin level of 10.3 on admission * Elevated d-dimer- no suspicion of pulmonary embolism based on exam and laboratory workup otherwise. Note the patient was on room air when she arrived to ED. * Mild hypokalemia- improved Plan * Continue ceftriaxone and azithromycin; after today's dose switch to oral antibiotic Augmentin 875 twice a day for 4 days * Ambulate with assistance; assess for short-term rehabilitation * Possible discharge tomorrow Current Medications Sig/Ellen Start time Last Medication Dose Route Stop Time Status Admin Acetaminophen 650 MG Q6P PRN 08/18 2300 AC 08/22 PO 0749 Ascorbic Acid 500 MG DAILY 08/19 1000 AC 08/23 PO 0901 Aspirin Buffered 162 MG DAILY 08/19 1000 AC 08/23 PO 0901 Atorvastatin Calcium 40 MG 1700 08/19 1700 AC 08/22 PO 1735 Azithromycin 500 MG DAILY 08/21 1000 AC 08/23 Dextrose/Water 250 ML IV 0900 Calcium 600 MG BID 08/19 1000 AC 08/23 PO 0901 Ceftriaxone Sodium 1,000 MG DAILY 08/21 1000 AC 08/23 IV 0900 Cholecalciferol 1,000 IU DAILY 08/19 1000 AC 08/23 PO 09 Cilostazol 50 MG BID 08/19 1000 AC 08/23 PO 0902 Cyanocobalamin 1,000 MCG DAILY 08/19 1000 AC 08/23 PO 0902 Enoxaparin Sodium 40 MG DAILY 08/19 1000 AC 08/23 SC 0900 Folic Acid 1 MG DAILY 08/19 1000 AC 08/23 PO 0901 Gabapentin 100 MG AT BEDTIME 08/19 2200 AC 08/22 PO 2049 Guaifenesin 10 ML Q6P PRN 08/19 1730 AC PO Guaifenesin 10 ML Q6P PRN 08/18 2345 AC 08/19 PO 0120 Insulin Aspart 0 TIDAC 08/18 2315 AC 08/23 SC 0815 Losartan Potassium 25 MG DAILY 08/23 1000 AC PO Magnesium Oxide 400 MG DAILY 08/19 1000 AC 08/23 PO 0901 Melatonin 5 MG QPM 08/19 2200 AC 08/22 PO 2049 Multivitamins 1 TAB DAILY 08/19 1000 AC 08/23 Therapeutic PO 0901 Nadolol 40 MG DAILY 08/19 1000 AC 08/23 PO 0901 Ondansetron HCl 4 MG Q8P PRN 08/22 1345 AC IV Oseltamivir Phosphate 30 MG BID 08/18 2200 DC 08/22 PO 08/22 2159 1045 Phenytoin 100 MG TID 08/18 2309 AC 08/23 PO 0901 Risperidone 0.5 MG BID 08/18 2310 AC 08/23 PO 0902 Sertraline HCl 50 MG DAILY 08/19 1000 AC 08/23 PO 0902 Laboratory Tests 08/23/17 0639: Anion Gap 12, Estimated GFR 53 L, BUN/Creatinine Ratio 24.0 08/22/17 0730: Anion Gap 13, Estimated GFR > 60, BUN/Creatinine Ratio 33.8 H, CBC w Diff NO MAN DIFF REQ, RBC 3.38 L, MCV 92.5, MCH 31.5 H, MCHC 34.0, RDW 14.5, MPV 9.9, Gran % 51.4, Lymphocytes % 36.5, Monocytes % 8.7, Eosinophils % 3.0, Basophils % 0.4, Absolute Granulocytes 1.6, Absolute Lymphocytes 1.1 L, Absolute Monocytes 0.3, Absolute Eosinophils 0.1, Absolute Basophils 0 Microbiology 08/20 2042 LOWER RESP: Respiratory Culture - COMP 08/20 2042 LOWER RESP: Gram Stain - COMP 08/20 1899 URINE ROUT: Legionella Antigen - COMP 08/20 1899 URINE ROUT: Streptococcus pneumoniae Antigen (M - COMP Vital Signs Date Time Temp Pulse Resp B/P B/P Pulse O2 O2 Flow FiO2 Mean Ox Delivery Rate 08/23 0901 68 128/70 08/23 0600 97.8 68 18 128/70 91 08/22 2233 98.0 65 16 132/64 92 Room Air 08/22 1600 94 Room Air Room Air 08/22 1452 97.6 65 18 116/56 95 Room Air Intake & Output 08/23 1600 08/23 0800 08/23 0000 Intake Total 100 200 Output Total Balance 100 200 Intake, Oral 100 200 Patient 119 lb Weight
[2017-08-23 14:31] VITALS: BP 122/54
[2017-08-23] MEDS ORDERED: AUGMENTIN 875-1 EACH PO (15:07)
[2017-08-23] MEDS ORDERED: TESSALON PERLE100 M1 PO (15:08)
[2017-08-23 19:34] VITALS: BP 112/84
[2017-08-23 22:34] VITALS: BP 130/60
--- NOTE | 2017-08-24 04:06 | PN- Housestaff ---
Subjective Follow-up For: Acute hypoxemic respiratory failure Acute influenza type A Acute diastolic congestive heart failure Peptic acidosis Neutropenia Complaints: no complaints Subjective: Patient is Wolof speaking. She remained afebrile overnight. No episodes of tachycardia overnight. No tachypnea. Systolic blood pressure improved and she is currently on RA. Overnight, she was transferred from telemetry to [facility]. She had chnage in mental status and was delirious. She was given 5mg once Haldol and gifty was placed. Review of Systems Constitutional: Denies: chills, fever. Cardiovascular: Denies: chest pain, palpitations. Respiratory: Denies: cough, short of breath. Gastrointestinal: Denies: abdominal pain, nausea, vomiting. Genitourinary: Denies: dysuria. Objective Last 24 Hrs of Vital Signs/I&O Vital Signs Date Time Temp Pulse Resp B/P B/P Pulse O2 O2 Flow FiO2 Mean Ox Delivery Rate 08/24 0000 Room Air 08/23 2234 98.1 78 20 130/60 96 Room Air 08/23 1934 98.6 63 20 112/84 96 Room Air 08/23 1600 Room Air Room Air 08/23 1536 122/54 08/23 1431 98.6 69 18 122/54 93 08/23 0901 68 128/70 08/23 0600 97.8 68 18 128/70 91 Intake & Output 08/24 0800 08/24 0000 08/23 1600 Intake Total 240 570 Output Total Balance 240 570 Intake, IV 270 Intake, Oral 240 300 Number 2 Bowel Movements Patient 119 lb Weight Weight Bed scale Measurement Method Physical Exam General Appearance: Alert, Cooperative, No Acute Distress HEENT: Atraumatic, PERRLA Neck: No JVD Cardiovascular: Regular Rate, Normal S1, Normal S2 Lungs: Clear to Auscultation, Normal Air Movement Abdomen: Normal Bowel Sounds, Soft, No Tenderness Neurological: Normal Gait, Normal Speech, Normal Tone, Sensation Intact Extremities: No Edema Current Medications: Current Medications Sig/Ellen Start time Last Medication Dose Route Stop Time Status Admin Acetaminophen 650 MG Q6P PRN 08/18 2300 AC 08/22 PO 0749 Amoxicillin/ 875 MG Q12 08/24 1000 AC Clavulanate Potassium PO Ascorbic Acid 500 MG DAILY 08/19 1000 AC 08/23 PO 0901 Aspirin Buffered 162 MG DAILY 08/19 1000 AC 08/23 PO 0901 Atorvastatin Calcium 40 MG 1700 08/19 1700 AC 08/23 PO 1732 Azithromycin 500 MG DAILY 08/21 1000 DC 08/23 Dextrose/Water 250 ML IV 0900 Calcium 600 MG BID 08/19 1000 AC 08/23 PO 211 Ceftriaxone Sodium 1,000 MG DAILY 08/21 1000 DC 08/23 IV 0900 Cholecalciferol 1,000 IU DAILY 08/19 1000 AC 08/23 PO 09 Cilostazol 50 MG BID 08/19 1000 AC 08/23 PO 211 Cyanocobalamin 1,000 MCG DAILY 08/19 1000 AC 08/23 PO 09 Enoxaparin Sodium 40 MG DAILY 08/19 1000 AC 08/23 SC 0900 Folic Acid 1 MG DAILY 08/19 1000 AC 08/23 PO 0901 Gabapentin 100 MG AT BEDTIME 08/19 2200 AC 08/23 PO 211 Guaifenesin 10 ML Q6P PRN 08/19 1730 AC PO Guaifenesin 10 ML Q6P PRN 08/18 2345 AC 08/23 PO 2324 Haloperidol 5 MG ONCE ONE 08/24 0030 DC 08/24 IM 08/24 0031 0025 Insulin Aspart 0 TIDAC 08/18 2315 AC 08/23 SC 1732 Losartan Potassium 25 MG DAILY 08/23 1000 AC 08/23 PO 1536 Magnesium Oxide 400 MG DAILY 08/19 1000 AC 08/23 PO 0901 Melatonin 5 MG QPM 08/19 2200 AC 08/23 PO 211 Multivitamins 1 TAB DAILY 08/19 1000 AC 08/23 Therapeutic PO 09 Nadolol 40 MG DAILY 08/19 1000 AC 08/23 PO 0901 Ondansetron HCl 4 MG Q8P PRN 08/22 1345 AC IV Phenytoin 100 MG TID 08/18 2309 AC 08/23 PO 211 Risperidone 0.5 MG BID 08/18 2310 AC 08/23 PO 211 Sertraline HCl 50 MG DAILY 08/19 1000 AC 08/23 PO 0902 Last 24 Hrs of Lab/Tobias Results Last 24 Hrs of Labs/Mics: Laboratory Tests 08/23/17 0639: Anion Gap 12, Estimated GFR 53 L, BUN/Creatinine Ratio 24.0 Lines/Diet/Fluids Fluids/Infusions: none Lines: peripheral lines Restraints: [place] Assessment/Plan Assessment: 82 year old female with extensive past medical history of CAD S/P CABG (1997), S /P HI (2003) repeat cardiac cath showed extensive CAD, S/P stent (2004) , HFpEF , HTN, HLD, DM, seizure disorder, PVD, subdural hematoma, chronic incontinence, bilateral hip replacement, history of cholecystectomy currently admitted for lethargy and weakness for the last 3 days and decreased by mouth intake. Patient is currently being managed for the following problems Acute hypoxemic respiratory failure Patient's oxygen requirement increased in emergency department after IV fluids. Chest x-ray showed Mild cardiomegaly and mild prominence of the pulmonary vasculature suggesting mild volume overload. Patient was admitted on telemetry floor and her oxygen requirements kept increasing. She also has history of diastolic heart failure. Her symptom could be multifactorial secondary to positive flu and possibly acute diastolic heart failure secondary to volume overload. She developed low-grade temperature spikes during admission which raised concern of post flu pneumonia. Patient was given 1 dose of vancomycin. She was started on ceftriaxone and azithromycin. CT chest was also obtained that showed Left greater than right bilateral pleural effusions. Streaky groundglass opacification within the left upper lobe. Chest x-ray also showed resolution of pulmonary vascular congestion and interval development of asymmetric diffuse airspace opacification. Overall after starting antibiotics patient has clinically improved and her oxygen requirement has decreased. Hypotension has also resolved. We finished Tamiflu and Continue to taper oxygen as needed and she is on RA now. We switched from IV antibiotics to by mouth antibiotics Augmentin 875 mg twice a day in anticipation of discharge. Severe sepsis secondary to community-acquired pneumonia-Improving Patient met the criteria of severe sepsis with temperature spike of 101.3, tachycardia heart rate 92, tachypnea respiratory rate 26, white count less than 4, suspected source of infection in the lungs and lactic acidosis. Patient did receive IV hydration her admission but later on fluids were held because of acute diastolic heart failure. Lactic acidosis resolved after IV hydration. Patient is currently on broad-spectrum antibiotics. Patient remained afebrile overnight and blood pressure has improved. She does not meet the criteria for sepsis anymore. History of [id number] diabetes mellitus We will hold home medication glimepiride and Januvia Accu-Cheks Continue with Insulin sliding scale, consider adding long-acting insulin Patient is currently Diabetic diet Lactic acidosis Likely secondary to poor perfusion type A Lactic acidosis resolved with IV hydration UTI Patient had episodes of low-grade temperature spikes in the past days, currently afebrile. Difficult to elicit symptoms of urinary tract infection because of language barrier. Urine culture grew Escherichia coli which is pansensitive. She is currently covered by recent antibiotics. Acute delirium Patient had an acute change in mental status after she was transferred from telemetry to [facility] floor. Recent blood work does not show any signs of infection. No significant electrolyte abnormality. Patient had a bowel movement yesterday. Patient was given 1 dose of 5 mg IM Haldol and placed on [place]. History of CAD, PAD, HTN, HDL, insomnia, peripheral neuropathy, seizure, and mental health We will continued her home medications including, aspirin 162 daily, Cilastazol 50 twice daily nadolol 40,lovastatin 40 daily, melatonin 5 mg, risperidone 0.5 twice daily , sertraline 50 at bed time gabapentin 100 at bedtime, and phenytoin 100TID, (level on admission was 10.3) losartan 25 daily, held for hypotension transiently and restarted CODE STATUS Patient is currently Full code DVT prophylaxis DVT prophylaxis subcutaneous Lovenox Problem List: 1. Influenza A Pain Ratin Pain Location: NA Pain Goal: Pain 4 or less Pain Plan: Continue current pain medications Tomorrow's Labs & Rationales: CBC and BEP if patient remains delirious Consulting Request: Consulting Specialty: Cardiology
[2017-08-24 07:01] VITALS: BP 132/82
[2017-08-24 09:06] LABS: ABSOLUTE BASOPHIL COUNT 0 /CUMM (0.0-0.2); ABSOLUTE EOSINOPHIL COUNT 0.1 /CUMM (0.0-0.7); ABSOLUTE GRANULOCYTE CT 2.6 /CUMM (1.4-6.5); ABSOLUTE LYMPH COUNT 1.1 /CUMM (1.2-3.4); ABSOLUTE MONOCYTE COUNT 0.4 /CUMM (0.10-0.60); BASOPHIL % 0.3 % (0.0-2.0); MEAN CORPUSCULAR HGB 30.9 PG (27.0-31.0); MEAN CORPUSCULAR HGB CONC 33.4 G/DL (33.0-37.0); MEAN CORPUSCULAR VOLUME 92.5 FL (81.0-99.0); MEAN PLATELET VOLUME 9.9 FL (7.4-10.4); RBC DISTRIBUTION WIDTH 14.5 % (11.5-14.5); RED BLOOD CELL CT 3.92 /CUMM (4.20-5.40); WHITE BLOOD CELL COUNT 4.2 /CUMM (4.8-10.8)
[2017-08-24 09:23] LABS: HEMATOCRIT 36.3 % (37-47)
--- NOTE | 2017-08-24 11:46 | PN- Att Addend ---
Attending Addendum Attending Brief Note Patient seen and examined. Plan of care discussed with the medical team and the patient. Available lab work and radiology test reports were reviewed. Patient was transferred to general medical floor last night. Overnight she has become confused and was put in [place] vest. This morning she is mostly speaking Turkish. She appears disoriented but not agitated. Exam: General: Patient awake but disoriented and currently in a Mavis vest CVS: S1 plus S2 without any murmur or gallops Chest: Few scattered crepitation with scattered wheeze. There is no respiratory distress. Abdomen: Soft non-tender, bowel sound present, no guarding or rebound STONE POLISHER: Awake alert disoriented without any focal neuro deficit and follows commands appropriately Extremities: No edema; no clubbing or cyanosis noted Assessment * Acute Influenza type A with suspected left-sided pneumonia, status post 5 days of Tamiflu * Suspected community acquired pneumonia secondary to influenza or bacteria- interestingly patient does not have white cell count elevation or left shift or fever however CT findings suggestive of pneumonia; currently on oral antibiotics * Suspected sepsis given hypotension and elevated lactic acid in setting of pneumonia * Hypoxia- could be related to pneumonia or overload of fluid after receiving normal saline in the emergency room- now much improved and currently on room air * Acute diastolic CHF exacerbated by normal saline, now resolved after Lasix treatment * History of diabetes * Lactic acidosis- resolved * Neutropenia * History of seizure disorder- patient currently on phenytoin, level of 10.3 on admission * Elevated d-dimer- no suspicion of pulmonary embolism based on exam and laboratory workup otherwise. Note the patient was on room air when she arrived to ED. * Mild hypokalemia- improved Plan * Continue Augmentin for 3 more days; * Please have patient sitting in hallway in a Kylee chair * Try to discontinue [place] vest * Possible discharge tomorrow if mental status clears * Ambulate with assist * Continue melatonin at night Current Medications Sig/Ellen Start time Last Medication Dose Route Stop Time Status Admin Acetaminophen 650 MG .STK-MED ONE 08/23 2110 DC PO 08/24 2111 Acetaminophen 650 MG Q6P PRN 08/18 2300 AC 08/22 PO 0749 Amoxicillin/ 875 MG Q12 08/24 1000 AC 08/24 Clavulanate Potassium PO 09 Ascorbic Acid 500 MG DAILY 08/19 1000 AC 08/24 PO 09 Aspirin Buffered 162 MG DAILY 08/19 1000 AC 08/24 PO 0926 Atorvastatin Calcium 40 MG 1700 08/19 1700 AC 08/23 PO 1732 Azithromycin 500 MG DAILY 08/21 1000 DC 08/23 Dextrose/Water 250 ML IV 0900 Calcium 600 MG BID 08/19 1000 AC 08/24 PO 0925 Ceftriaxone Sodium 1,000 MG DAILY 08/21 1000 DC 08/23 IV 0900 Cholecalciferol 1,000 IU DAILY 08/19 1000 AC 08/24 PO 0927 Cilostazol 50 MG BID 08/19 1000 AC 08/24 PO 0927 Cyanocobalamin 1,000 MCG DAILY 08/19 1000 AC 08/24 PO 0927 Enoxaparin Sodium 40 MG DAILY 08/19 1000 AC 08/24 SC 0926 Folic Acid 1 MG DAILY 08/19 1000 AC 08/24 PO 09 Gabapentin 100 MG AT BEDTIME 08/19 2200 AC 08/23 PO 211 Guaifenesin 10 ML .STK-MED ONE 08/23 2322 DC PO 08/23 2323 Guaifenesin 10 ML Q6P PRN 08/19 1730 AC PO Guaifenesin 10 ML Q6P PRN 08/18 2345 AC 08/23 PO 2324 Haloperidol 5 MG ONCE ONE 08/24 0030 DC 08/24 IM 08/24 0031 0025 Insulin Aspart 0 TIDAC 08/18 2315 AC 08/23 SC 1732 Losartan Potassium 25 MG DAILY 08/23 1000 AC 08/24 PO 0926 Magnesium Oxide 400 MG DAILY 08/19 1000 AC 08/24 PO 0927 Melatonin 5 MG QPM 08/19 2200 AC 08/23 PO 211 Multivitamins 1 TAB DAILY 08/19 1000 AC 08/24 Therapeutic PO 0927 Nadolol 40 MG DAILY 08/19 1000 AC 08/24 PO 09 Ondansetron HCl 4 MG Q8P PRN 08/22 1345 AC IV Phenytoin 100 MG TID 08/18 2309 AC 08/24 PO 0924 Risperidone 0.5 MG BID 08/18 2310 AC 08/24 PO 0928 Sertraline HCl 50 MG DAILY 08/19 1000 AC 08/24 PO 0928 Laboratory Tests 08/24/17 0820: CBC w Diff NO MAN DIFF REQ, RBC 3.92 L, MCV 92.5, MCH 30.9, MCHC 33.4, RDW 14.5 , MPV 9.9, Gran % 63.0, Lymphocytes % 26.4, Monocytes % 8.3, Eosinophils % 2.0, Basophils % 0.3, Absolute Granulocytes 2.6, Absolute Lymphocytes 1.1 L, Absolute Monocytes 0.4, Absolute Eosinophils 0.1, Absolute Basophils 0 08/24/17 0814: Anion Gap 17 H, Estimated GFR > 60, BUN/Creatinine Ratio 31.4 H 08/23/17 0639: Anion Gap 12, Estimated GFR 53 L, BUN/Creatinine Ratio 24.0 08/22/17 0730: Anion Gap 13, Estimated GFR > 60, BUN/Creatinine Ratio 33.8 H, CBC w Diff NO MAN DIFF REQ, RBC 3.38 L, MCV 92.5, MCH 31.5 H, MCHC 34.0, RDW 14.5, MPV 9.9, Gran % 51.4, Lymphocytes % 36.5, Monocytes % 8.7, Eosinophils % 3.0, Basophils % 0.4, Absolute Granulocytes 1.6, Absolute Lymphocytes 1.1 L, Absolute Monocytes 0.3, Absolute Eosinophils 0.1, Absolute Basophils 0 Vital Signs Date Time Temp Pulse Resp B/P B/P Pulse O2 O2 Flow FiO2 Mean Ox Delivery Rate 08/24 925 97.5 74 20 132/82 08/24 0926 97.5 74 20 132/82 08/24 0701 97.5 74 20 132/82 94 Room Air 08/24 0000 Room Air 08/23 2234 98.1 78 20 130/60 96 Room Air 08/23 1934 98.6 63 20 112/84 96 Room Air 08/23 1600 Room Air Room Air 08/23 1536 122/54 08/23 1431 98.6 69 18 122/54 93 Intake & Output 08/24 1600 08/24 0800 08/24 0000 Intake Total 360 240 Output Total Balance 360 240 Intake, Oral 360 240 Patient 108 lb 119 lb Weight Weight Bed scale Measurement Method
[2017-08-24 12:08] LABS: PLATELET COUNT 142 /CUMM (130-400)
[2017-08-24 14:49] VITALS: BP 138/70
[2017-08-24 21:38] VITALS: BP 150/70
[2017-08-25 06:33] VITALS: BP 108/48
--- NOTE | 2017-08-25 08:57 | PN- Housestaff ---
Tobin VIDAL,[facility] 08/25/17 0856: Subjective Follow-up For: Acute hypoxemic respiratory failure Acute influenza type A Acute diastolic congestive heart failure Peptic acidosis Neutropenia Complaints: no complaints Subjective: Patient is mainly Australian speaking but speaks a little bit of tamazight as well. She remained afebrile overnight. She had an episode of delirium and agitation 2 nights ago but no more episodes of agitation or delirium overnight and [facility] has been discontinued. She denies shortness of breath, but has a mild intermittent cough. She denies chest pains, palpitations, swelling of her limbs. She is alert and oriented and chatting with her 2 daughters who were present at the time of examination. Review of Systems Constitutional: Reports: see HPI. Denies: fever. Objective Last 24 Hrs of Vital Signs/I&O Vital Signs Date Time Temp Pulse Resp B/P B/P Pulse O2 O2 Flow FiO2 Mean Ox Delivery Rate 08/25 0735 97.6 66 16 108/48 08/25 0735 97.6 66 16 108/48 08/25 0633 97.6 66 16 108/48 92 Room Air 08/24 2138 98.1 69 20 150/70 94 08/24 1449 98.0 68 18 138/70 92 Intake & Output 08/25 1600 08/25 0800 08/25 0000 Intake Total 300 300 Output Total Balance 300 300 Intake, Oral 300 300 Number 0 Bowel Movements Patient 104 lb 108 lb Weight Weight Bed scale Measurement Method Physical Exam General Appearance: Alert, Oriented X3, Cooperative, No Acute Distress Skin: No Rashes Skin Temp/Moisture Exam: Warm/Dry Sepsis Skin Exam (color): Normal for Ethnicity HEENT: Atraumatic, PERRLA, EOMI, Mucous Membr. moist/pink Neck: Supple, No JVD, No thryomegaly Lymphatic: Cervical nl Cardiovascular: Regular Rate, Normal S1, Normal S2, No Murmurs Lungs: Clear to Auscultation, Normal Air Movement, few coarse crepitations in both lung bases Abdomen: Normal Bowel Sounds, Soft, No Tenderness, No Hepatospenomegaly, No Masses Neurological: Normal Speech, Strength at 5/5 X4 Ext, Normal Tone Extremities: No Edema, No Tenderness/Swelling Assessment/Plan Assessment: 82 year old female with extensive past medical history of CAD S/P CABG (1997), S /P [place] (2003) repeat cardiac cath showed extensive CAD, S/P stent (2004) , HFpEF , HTN, HLD, DM, seizure disorder, PVD, subdural hematoma, chronic incontinence, bilateral hip replacement, history of cholecystectomy currently admitted for lethargy and weakness for the last 3 days and decreased by mouth intake. Patient is currently being managed for the following problems: 1. Acute hypoxemic respiratory failure Patient's oxygen requirement increased in emergency department after administration of IV fluids. Chest x-ray showed Mild cardiomegaly and mild prominence of the pulmonary vasculature suggesting mild volume overload. Patient was admitted on telemetry floor and her oxygen requirements kept increasing. She also has history of diastolic heart failure. Her symptom could be multifactorial secondary to positive flu and possibly acute diastolic heart failure secondary to volume overload. She developed low-grade temperature spikes during admission which raised concern of post flu pneumonia. Patient was given 1 dose of vancomycin. She was started on ceftriaxone and azithromycin. CT chest was also obtained that showed Left greater than right bilateral pleural effusions. Streaky groundglass opacification within the left upper lobe. Chest x-ray also showed resolution of pulmonary vascular congestion and interval development of asymmetric diffuse airspace opacification. Overall after starting antibiotics patient has clinically improved and her oxygen requirement has decreased. Hypotension has also resolved. We finished Tamiflu and Continue to taper oxygen as needed and she is on RA now. We switched from IV antibiotics to by mouth antibiotics Augmentin 875 mg twice a day in anticipation of discharge. At this time she is saturating well on room air and is ready for discharge to complete 4 more days of by mouth Augmentin. 2. Severe sepsis secondary to community-acquired pneumonia-resolved Patient met the criteria of severe sepsis with temperature spike of 101.3, tachycardia heart rate 92, tachypnea respiratory rate 26, white count less than 4, suspected source of infection in the lungs and lactic acidosis. Patient did receive IV hydration her admission but later on fluids were held because of acute diastolic heart failure. Lactic acidosis resolved after IV hydration. Patient is currently on broad-spectrum antibiotics. Patient remained afebrile overnight and blood pressure has improved. She does not meet the criteria for sepsis anymore. Her pneumonia has resolved. 3. History of ptj-nllpuny-ipybwlaja diabetes mellitus We will hold home medication glimepiride and Januvia and restart on discharge Accu-Cheks Continue with Insulin sliding scale, consider adding long-acting insulin Patient is currently Diabetic diet 4. Lactic acidosis Likely secondary to poor perfusion type A Lactic acidosis resolved with IV hydration 5. UTI Patient had episodes of low-grade temperature spikes in the past days, currently afebrile. Difficult to elicit symptoms of urinary tract infection because of language barrier. Urine culture grew Escherichia coli which is pansensitive. She is currently covered by recent antibiotics. 6. Acute delirium Patient had an acute change in mental status after she was transferred from telemetry to [facility] floor. Likely secondary to delirium. Recent blood work does not show any signs of infection. No significant electrolyte abnormality. Patient had a bowel movement 2 days ago. Patient was given 1 dose of 5 mg IM Haldol and placed on Mavis. She has had no more episode of delirium overnight and she is now off of restraints. In addition I believe her safety monitor can safely be discontinued today and the patient can be transferred to short-term rehabilitation facility tomorrow. Safety monitor will be discontinued. 5. History of CAD, PAD, HTN, HDL, insomnia, peripheral neuropathy, seizure, and mental health We will continued her home medications including, aspirin 162 daily, Cilastazol 50 twice daily nadolol 40,lovastatin 40 daily, melatonin 5 mg, risperidone 0.5 twice daily , sertraline 50 at bed time gabapentin 100 at bedtime, and phenytoin 100TID, (level on admission was 10.3). Her losartan 25 daily which was held for hypotension has been restarted. CODE STATUS Patient is currently Full code DVT prophylaxis DVT prophylaxis subcutaneous Lovenox Problem List: 1. Influenza A 2. GENERALIZED WEAKNESS. Pain Ratin Pain Location: None Pain Goal: Remain pain free Pain Plan: Tylenol when necessary Tomorrow's Labs & Rationales: Not needed Consulting Request: Consulting Specialty: Cardiology Lupe Hernandez MD 08/25/17 1317: Attending MD Review Statement Attending Statement Attending MD Statement: examined this patient, discuss w/resident/PA/MOTORCYCLE ASSEMBLER, agreed w/resident/PA/MOTORCYCLE ASSEMBLER, reviewed EMR data (avail), discussed with nursing, discussed with case mgmt, reviewed images Attending Assessment/Plan: Patient had an episode of delirium requiring Mavis vest and restraints. Overnight she's been markedly improved. She is primarily Australian speaking and family translates. She is here with treatment for acute hypoxemic respiratory failure that's multifactorial including acute influenza, left upper lobe bacterial pneumonia and acute on chronic diastolic CHF. The sitter and restraints were stopped today. The plan is that she will remain sitter free for 24 hours and discharge to [facility] in a.m. She's completed her course of Tamiflu and has a few more days left of her by mouth Augmentin.
[2017-08-25 15:09] VITALS: BP 120/60
[2017-08-25 21:34] VITALS: BP 120/56
[2017-08-26 06:20] VITALS: BP 142/64
--- NOTE | 2017-08-26 08:31 | PN- Housestaff ---
Abdirahman Perry MD,[facility] 08/26/17 0831: Subjective Follow-up For: Acute hypoxemic respiratory failure Acute influenza type A Acute diastolic congestive heart failure Peptic acidosis Neutropenia Complaints: no complaints Subjective: Patient is Maltese speaking. She remained afebrile overnight. No episodes of tachycardia overnight. No tachypnea. Systolic blood pressure improved and she is currently on RA. Review of Systems Constitutional: Denies: chills, fever. EENTM: Denies: visual changes. Cardiovascular: Denies: chest pain, palpitations. Respiratory: Denies: cough, short of breath. Gastrointestinal: Denies: abdominal pain, nausea. Genitourinary: Denies: discharge. Musculoskeletal: Denies: back pain, joint pain. Objective Last 24 Hrs of Vital Signs/I&O Vital Signs Date Time Temp Pulse Resp B/P B/P Pulse O2 O2 Flow FiO2 Mean Ox Delivery Rate 08/26 0823 Nasal 2.0L Cannula 08/26 0620 97.9 73 18 142/64 93 Room Air 08/25 2134 98.5 69 18 120/56 94 Room Air 08/25 1509 98.2 68 18 120/60 92 Intake & Output 08/26 1600 08/26 0800 08/26 0000 Intake Total 360 500 Output Total Balance 360 500 Intake, Oral 360 500 Number 1 Bowel Movements Patient 106 lb 105 lb Weight Weight Bed scale Bed scale Measurement Method Physical Exam General Appearance: Alert, Oriented X3, Cooperative HEENT: Atraumatic Neck: Supple, No JVD Cardiovascular: Regular Rate, Normal S1, Normal S2 Lungs: Clear to Auscultation, Normal Air Movement Abdomen: Normal Bowel Sounds, Soft, No Tenderness Neurological: Normal Speech, Normal Tone, Sensation Intact Extremities: No Edema Vascular: Normal Pulses Current Medications: Current Medications Sig/Ellen Start time Last Medication Dose Route Stop Time Status Admin Acetaminophen 650 MG Q6P PRN 08/18 2300 AC 08/26 PO 0313 Amoxicillin/ 875 MG Q12 08/24 1000 AC 08/25 Clavulanate Potassium PO 2145 Ascorbic Acid 500 MG DAILY 08/19 1000 AC 08/25 PO 0736 Aspirin Buffered 162 MG DAILY 08/19 1000 AC 08/25 PO 0735 Atorvastatin Calcium 40 MG 1700 08/19 1700 AC 08/25 PO 1720 Calcium 600 MG BID 08/19 1000 AC 08/25 PO 2146 Cholecalciferol 1,000 IU DAILY 08/19 1000 AC 08/25 PO 0736 Cilostazol 50 MG BID 08/19 1000 AC 08/25 PO 2146 Cyanocobalamin 1,000 MCG DAILY 08/19 1000 AC 08/25 PO 0736 Enoxaparin Sodium 40 MG DAILY 08/19 1000 AC 08/25 SC 0737 Folic Acid 1 MG DAILY 08/19 1000 AC 08/25 PO 0736 Gabapentin 100 MG AT BEDTIME 08/19 2200 AC 08/25 PO 2146 Guaifenesin 10 ML Q6P PRN 08/19 1730 AC PO Insulin Aspart 0 TIDAC 08/18 2315 AC 08/26 SC 0833 Losartan Potassium 25 MG DAILY 08/23 1000 AC 08/25 PO 0735 Magnesium Oxide 400 MG DAILY 08/19 1000 AC 08/25 PO 0736 Melatonin 5 MG QPM 08/19 2200 AC 08/25 PO 2146 Multivitamins 1 TAB DAILY 08/19 1000 AC 08/25 Therapeutic PO 0736 Nadolol 40 MG DAILY 08/19 1000 AC 08/25 PO 0735 Ondansetron HCl 4 MG Q8P PRN 08/22 1345 AC IV Phenytoin 100 MG TID 08/18 2309 AC 08/25 PO 2145 Risperidone 0.5 MG BID 08/18 2310 AC 08/25 PO 2146 Sertraline HCl 50 MG DAILY 08/19 1000 AC 08/25 PO 0736 Lines/Diet/Fluids Fluids/Infusions: none Lines: none Restraints: none Assessment/Plan Assessment: 82 year old female with extensive past medical history of CAD S/P CABG (1997), S /P [place] (2003) repeat cardiac cath showed extensive CAD, S/P stent (2003) , HFpEF , HTN, HLD, DM, seizure disorder, PVD, subdural hematoma, chronic incontinence, bilateral hip replacement, history of cholecystectomy currently admitted for lethargy and weakness for the last 3 days and decreased by mouth intake. Patient is currently being managed for the following problems Acute hypoxemic respiratory failure Resolved Patient's oxygen requirement increased in emergency department after IV fluids. Chest x-ray showed Mild cardiomegaly and mild prominence of the pulmonary vasculature suggesting mild volume overload. Patient was admitted on telemetry floor and her oxygen requirements kept increasing. She also has history of diastolic heart failure. Her symptom could be multifactorial secondary to positive flu and possibly acute diastolic heart failure secondary to volume overload. She developed low-grade temperature spikes during admission which raised concern of post flu pneumonia. Patient was given 1 dose of vancomycin. She was started on ceftriaxone and azithromycin. CT chest was also obtained that showed Left greater than right bilateral pleural effusions. Streaky groundglass opacification within the left upper lobe. Chest x-ray also showed resolution of pulmonary vascular congestion and interval development of asymmetric diffuse airspace opacification. Overall after starting antibiotics patient has clinically improved and her oxygen requirement has decreased. Hypotension has also resolved. We finished Tamiflu and Continue to taper oxygen as needed and she is on RA now. We switched from IV antibiotics to by mouth antibiotics Augmentin 875 mg twice a day in anticipation of discharge. Severe sepsis secondary to community-acquired pneumonia Resolved Patient met the criteria of severe sepsis with temperature spike of 101.3, tachycardia heart rate 92, tachypnea respiratory rate 26, white count less than 4, suspected source of infection in the lungs and lactic acidosis. Patient did receive IV hydration her admission but later on fluids were held because of acute diastolic heart failure. Lactic acidosis resolved after IV hydration. Patient was on broad-spectrum antibiotics. Patient remained afebrile overnight and blood pressure has improved. She does not meet the criteria for sepsis anymore. She will require 2 more days of PO antibiotics. History of phv-bcpyqro-nqvrnszsd diabetes mellitus We will hold home medication glimepiride and Januvia Accu-Cheks Continue with Insulin sliding scale, consider adding long-acting insulin Patient is currently Diabetic diet Lactic acidosis Likely secondary to poor perfusion type A Lactic acidosis resolved with IV hydration UTI Patient had episodes of low-grade temperature spikes in the past days, currently afebrile. Difficult to elicit symptoms of urinary tract infection because of language barrier. Urine culture grew Escherichia coli which is pansensitive. She is currently covered by recent antibiotics. Acute delirium Patient had an acute change in mental status after she was transferred from telemetry to [facility] floor. Recent blood work does not show any signs of infection. No significant electrolyte abnormality. Patient had a bowel movement. Patient was given 1 dose of 5 mg IM Haldol and placed on [place]. Currently she is not delirious, not requiring any restrains or safety monitor. g History of CAD, PAD, HTN, HDL, insomnia, peripheral neuropathy, seizure, and mental health We will continued her home medications including, aspirin 162 daily, Cilastazol 50 twice daily nadolol 40,lovastatin 40 daily, melatonin 5 mg, risperidone 0.5 twice daily , sertraline 50 at bed time gabapentin 100 at bedtime, and phenytoin 100TID, (level on admission was 10.3) losartan 25 daily, held for hypotension transiently and restarted CODE STATUS Patient is currently Full code DVT prophylaxis DVT prophylaxis subcutaneous Lovenox Problem List: 1. Influenza A Pain Ratin Pain Location: NA Pain Goal: Pain 4 or less Pain Plan: Continue current pain medications Tomorrow's Labs & Rationales: None Consulting Request: Consulting Specialty: Cardiology Christiano Cordova MD 08/26/17 1708: Attending MD Review Statement Attending Statement Attending MD Statement: examined this patient, discuss w/resident/PA/SR. MANAGER, agreed w/resident/PA/SR. MANAGER, reviewed EMR data (avail), discussed with nursing, discussed with case mgmt, amended to note Attending Assessment/Plan: The patient was seen and discussed with house staff. Agree with plan of care as outlined. Awaiting bed for STR.
[2017-08-26] MEDS ORDERED: AUGMENTIN 875-1 EACH PO (08:38)
[2017-08-26 14:55] VITALS: BP 126/74
[2017-08-26 22:11] VITALS: BP 118/60
[2017-08-27 06:25] VITALS: BP 112/64
--- NOTE | 2017-08-27 07:24 | PN- Housestaff ---
Abdirahman Perry MD,[facility] 08/27/17 0724: Subjective Follow-up For: Acute hypoxemic respiratory failure Acute influenza type A Acute diastolic congestive heart failure Lactic acidosis Neutropenia Complaints: no complaints Subjective: Patient is Sami speaking. She remained afebrile overnight. No episodes of tachycardia overnight. No tachypnea. Systolic blood pressure improved and she is currently on RA. Review of Systems Constitutional: Denies: chills, fever. EENTM: Denies: visual changes. Cardiovascular: Denies: chest pain, palpitations. Respiratory: Reports: cough. Denies: short of breath. Gastrointestinal: Denies: abdominal pain, nausea, vomiting. Genitourinary: Denies: dysuria. Objective Last 24 Hrs of Vital Signs/I&O Vital Signs Date Time Temp Pulse Resp B/P B/P Pulse O2 O2 Flow FiO2 Mean Ox Delivery Rate 08/27 0625 98.4 80 16 112/64 97 Room Air 08/26 2211 98.1 64 19 118/60 94 Room Air 08/26 1600 Room Air 08/26 1455 97.9 66 18 126/74 95 08/26 1102 65 142/62 08/26 1101 65 142/62 08/26 0823 Nasal 2.0L Cannula Intake & Output 08/27 0800 08/27 0000 08/26 1600 Intake Total 480 800 480 Output Total Balance 480 800 480 Intake, Oral 480 800 480 Number 1 2 Bowel Movements Patient 106 lb Weight Physical Exam General Appearance: Alert, Oriented X3, Cooperative, No Acute Distress Skin: No Rashes HEENT: Atraumatic Neck: Supple, No JVD Cardiovascular: Regular Rate, Normal S1, Normal S2 Lungs: Clear to Auscultation, Normal Air Movement Abdomen: Normal Bowel Sounds, Soft, No Tenderness Neurological: Normal Speech, Normal Tone, Sensation Intact Extremities: No Clubbing Vascular: Normal Pulses Current Medications: Current Medications Sig/Ellen Start time Last Medication Dose Route Stop Time Status Admin Acetaminophen 650 MG Q6P PRN 08/18 2300 AC 08/26 PO 2346 Amoxicillin/ 875 MG Q12 08/24 1000 AC 08/26 Clavulanate Potassium PO 2039 Ascorbic Acid 500 MG DAILY 08/19 1000 AC 08/26 PO 1103 Aspirin Buffered 162 MG DAILY 08/19 1000 AC 08/26 PO 1102 Atorvastatin Calcium 40 MG 1700 08/19 1700 AC 08/26 PO 1631 Calcium 600 MG BID 08/19 1000 AC 08/26 PO 2038 Cholecalciferol 1,000 IU DAILY 08/19 1000 AC 08/26 PO 110 Cilostazol 50 MG BID 08/19 1000 AC 08/26 PO 2038 Cyanocobalamin 1,000 MCG DAILY 08/19 1000 AC 08/26 PO 1103 Enoxaparin Sodium 40 MG DAILY 08/19 1000 AC 08/26 SC 1104 Folic Acid 1 MG DAILY 08/19 1000 AC 08/26 PO 1102 Gabapentin 100 MG AT BEDTIME 08/19 2200 AC 08/26 PO 2038 Guaifenesin 10 ML Q6P PRN 08/19 1730 AC PO Insulin Aspart 0 TIDAC 08/18 2315 AC 08/26 SC 1716 Losartan Potassium 25 MG DAILY 08/23 1000 AC 08/26 PO 110 Magnesium Oxide 400 MG DAILY 08/19 1000 AC 08/26 PO 1102 Melatonin 5 MG QPM 08/19 2200 AC 08/26 PO 2038 Multivitamins 1 TAB DAILY 08/19 1000 AC 08/26 Therapeutic PO 1103 Nadolol 40 MG DAILY 08/19 1000 AC 08/26 PO 1101 Ondansetron HCl 4 MG Q8P PRN 08/22 1345 AC IV Phenytoin 100 MG TID 08/18 2309 AC 08/26 PO 2038 Risperidone 0.5 MG BID 08/18 2310 AC 08/26 PO 2038 Sertraline HCl 50 MG DAILY 08/19 1000 AC 08/26 PO 1104 Lines/Diet/Fluids Fluids/Infusions: none Restraints: none Assessment/Plan Assessment: 82 year old female with extensive past medical history of CAD S/P CABG (1997), S /P [place] (2003) repeat cardiac cath showed extensive CAD, S/P stent (2003) , HFpEF , HTN, HLD, DM, seizure disorder, PVD, subdural hematoma, chronic incontinence, bilateral hip replacement, history of cholecystectomy currently admitted for lethargy and weakness for the last 3 days and decreased by mouth intake. Patient is currently being managed for the following problems Acute hypoxemic respiratory failure Resolved Patient's oxygen requirement increased in emergency department after IV fluids. Chest x-ray showed Mild cardiomegaly and mild prominence of the pulmonary vasculature suggesting mild volume overload. Patient was admitted on telemetry floor and her oxygen requirements kept increasing. She also has history of diastolic heart failure. Her symptom could be multifactorial secondary to positive flu and possibly acute diastolic heart failure secondary to volume overload. She developed low-grade temperature spikes during admission which raised concern of post flu pneumonia. Patient was given 1 dose of vancomycin. She was started on ceftriaxone and azithromycin. CT chest was also obtained that showed Left greater than right bilateral pleural effusions. Streaky groundglass opacification within the left upper lobe. Chest x-ray also showed resolution of pulmonary vascular congestion and interval development of asymmetric diffuse airspace opacification. Overall after starting antibiotics patient has clinically improved and her oxygen requirement has decreased. Hypotension has also resolved. We finished Tamiflu and Continue to taper oxygen as needed and she is on RA now. We switched from IV antibiotics to by mouth antibiotics Augmentin 875 mg twice a day in anticipation of discharge. Severe sepsis secondary to community-acquired pneumonia Resolved Patient met the criteria of severe sepsis with temperature spike of 101.3, tachycardia heart rate 92, tachypnea respiratory rate 26, white count less than 4, suspected source of infection in the lungs and lactic acidosis. Patient did receive IV hydration her admission but later on fluids were held because of acute diastolic heart failure. Lactic acidosis resolved after IV hydration. Patient was on broad-spectrum antibiotics. Patient remained afebrile overnight and blood pressure has improved. She does not meet the criteria for sepsis anymore. She finished her by mouth antibiotic course. Acute delirium Patient had an acute change in mental status after she was transferred from telemetry to [facility] floor. Recent blood work does not show any signs of infection. No significant electrolyte abnormality. Patient had a bowel movement. Patient was given 1 dose of 5 mg IM Haldol and placed on [place]. Currently she is not delirious, not requiring any restrains or safety monitor. History of [id number]-advsehrln diabetes mellitus We will hold home medication glimepiride and Januvia Accu-Cheks Continue with Insulin sliding scale, consider adding long-acting insulin Patient is currently Diabetic diet Lactic acidosis Likely secondary to poor perfusion type A Lactic acidosis resolved with IV hydration UTI Patient had episodes of low-grade temperature spikes after admission, currently afebrile. Difficult to elicit symptoms of urinary tract infection because of language barrier. Urine culture grew Escherichia coli which is pansensitive. She is currently covered by recent antibiotics. History of CAD, PAD, HTN, HDL, insomnia, peripheral neuropathy, seizure, and mental health We will continued her home medications including, aspirin 162 daily, Cilastazol 50 twice daily nadolol 40,lovastatin 40 daily, melatonin 5 mg, risperidone 0.5 twice daily , sertraline 50 at bed time gabapentin 100 at bedtime, and phenytoin 100TID, (level on admission was 10.3) losartan 25 daily, held for hypotension transiently and restarted CODE STATUS Patient is currently Full code DVT prophylaxis DVT prophylaxis subcutaneous Lovenox Patient is stable for discharge and we are waiting for bed placement in STR Problem List: 1. Influenza A 2. Lactic acidosis Pain Ratin Pain Location: na Pain Goal: Pain 4 or less Pain Plan: Continue current pain medications Tomorrow's Labs & Rationales: Not needed Consulting Request: Consulting Specialty: Cardiology Discharge Plan Discharge Disposition: STR/SD Christiano Cordova MD 08/27/17 1122: Attending MD Review Statement Attending Statement Attending MD Statement: examined this patient, discuss w/resident/PA/PULLMAN CLERK, agreed w/resident/PA/PULLMAN CLERK, reviewed EMR data (avail), discussed with nursing, discussed with case mgmt, amended to note Attending Assessment/Plan: The patient was seen and discussed with house staff. Some "dizzy" sensation this morning. Negative orthostasis and blood glucose level good. Will follow. Await STR approval from insurance.
[2017-08-27 08:45] VITALS: BP 136/52
[2017-08-27 08:48] VITALS: BP 132/56
[2017-08-27 14:26] VITALS: BP 132/56
== END 2017-08-27 14:40 | DRG 871 ==
LOC: ERH 17:48 → ERHI 21:53 → 1NO 21:53 → ERHI 08-19 08:02 → ENRESERV 08-19 13:43 → ENTRNSPT 08-19 17:01 → EDTRNSPT 08-19 17:09 → EDTRNSPTSTS 08-19 17:09 → EDTRNSPT 08-19 17:41 → 1NO 08-19 17:50 → CMPTRNSPT 08-19 17:52 → ENTRNSPT 08-23 18:26 → 1NO 08-23 18:42 → EDTRNSPT 08-23 18:51 → EDTRNSPTSTS 08-23 18:51 → 2NA 08-23 19:09 → CMPTRNSPT 08-23 19:10 → 2NA 08-26 09:07
PROVIDERS: Hospitalist; Internal Medicine; Student in an Organized Health Care Education/Training Program
DX: A41.9 Sepsis, unspecified organism (principal); J10.00 Influenza due to other identified influenza virus with unspecified type of pneumonia; J96.01 Acute respiratory failure with hypoxia; I50.33 Acute on chronic diastolic (congestive) heart failure; D70.9 Neutropenia, unspecified; E87.2 Acidosis; I11.0 Hypertensive heart disease with heart failure; E11.42 Type 2 diabetes mellitus with diabetic polyneuropathy; E11.51 Type 2 diabetes mellitus with diabetic peripheral angiopathy without gangrene; N39.0 Urinary tract infection, site not specified; I27.20 Pulmonary hypertension, unspecified; E86.0 Dehydration; G40.909 Epilepsy, unspecified, not intractable, without status epilepticus; Z79.84 Long term (current) use of oral hypoglycemic drugs; B96.20 Unspecified Escherichia coli [E. coli] as the cause of diseases classified elsewhere; Z95.1 Presence of aortocoronary bypass graft; I25.2 Old myocardial infarction; Z98.61 Coronary angioplasty status; E78.5 Hyperlipidemia, unspecified; K21.9 Gastro-esophageal reflux disease without esophagitis; T14.8XXA Other injury of unspecified body region, initial encounter; R32 Unspecified urinary incontinence; Z79.82 Long term (current) use of aspirin; H91.90 Unspecified hearing loss, unspecified ear; I25.10 Atherosclerotic heart disease of native coronary artery without angina pectoris; G47.00 Insomnia, unspecified; E87.6 Hypokalemia; R65.20 Severe sepsis without septic shock; R41.0 Disorientation, unspecified; Z96.643 Presence of artificial hip joint, bilateral; Z90.49 Acquired absence of other specified parts of digestive tract
CPT/HCPCS: 1NP; 2NAP; ERO; 36415; 36592; 71045; 71046; 81001; 82436; 87070; 87086; 87449; 87450; 87804; 87804-59; 93005; 93010; 96361; 96374; 97110-GO; 97116-GO; 97530-GO; J0456; J0696; J1630; J1650; J1940; J3370; J3490; J7060